=== PATIENT | female | born 1945 | race Asian ===

== ENCOUNTER → 2016-08-31 | Outpatient (CLI) | payer MEDICARE ==
--- NOTE | 2016-08-31 14:02 | REP ---
CT MAXILLOFACIAL WITHOUT CONTRAST: 08/31/2016. Comparison: 07/23/2016. Clinical history: chronic sinusitis. Technique axial noncontrast images with coronal bone window reconstructions provided. The brain lab protocol was also followed for ENT use. The study again shows the patient is status post bilateral uncinectomy and partial ethmoidectomies. Ethmoid sinuses show some minor residual mucosal thickening bilaterally and essentially unchanged from the previous study. The sphenoids, frontal sinuses and mastoids were intact. The bilateral maxillary antra do not show any air fluid level, bony destructive lesion or interval change from last month's exam. Some minor atherosclerotic calcifications in the carotid siphons, orbits and contents symmetric and grossly unremarkable. Zygomatic arches and other structures of the skull base were intact. Impression: 1. Postoperative changes as described and stable with some chronic mucosal thickening ethmoids greater than the sphenoid and maxillary sinuses. Mastoids clear and frontal sinuses unremarkable. Signed by Altaf Garner MD 08/31/2016 02:32 P
== END ==
LOC: M RAD 11:07
PROVIDERS: ATTEND Otolaryngology
DX: J32.4 Chronic pansinusitis (principal)

== ENCOUNTER → 2017-12-13 | Outpatient (CLI) | payer MEDICARE | LOC: M RAD 09:37 | DX: J32.4 Chronic pansinusitis (principal) | CPT/HCPCS: 70486 ==

== ENCOUNTER 2018-09-07 16:51 | Emergency (ER) | payer MEDICARE ==
[~2018-09-07] VITALS: Ht 154.9 cm; Wt 61.8 kg
[2018-09-07] MEDS ORDERED: MOME50SP2 (17:08)
[2018-09-07] MEDS ORDERED: MUCI1TAB18 PO (17:08)
[2018-09-07] MEDS ORDERED: SPIR100T3 (17:08)
[2018-09-07] MEDS ORDERED: ATOR40TA75 (17:08)
[2018-09-07] MEDS ORDERED: DIGECAP6 PO (17:08)
[2018-09-07] MEDS ORDERED: LISI-542 (17:08)
[2018-09-07] MEDS ORDERED: OMEP20CA3 (17:08)
[2018-09-07] MEDS ORDERED: NADO80TA (17:08)
[2018-09-07 17:36] LABS: HEMATOCRIT 36.9 % (36.0-47.0); HEMOGLOBIN 12.8 g/dl (12.0-15.5); MEAN CORPUSCULAR HEMOGLOBIN 34.8 pg (27.0-33.0); MEAN CORPUSCULAR HGB CONC 34.7 g/dl (32.0-36.5); MEAN CORPUSCULAR VOLUME 100.3 fl (80.0-96.0); PLATELET COUNT, AUTOMATED 276 10^3/uL (150-450); RED BLOOD COUNT 3.68 10^6/uL (4.00-5.40); WHITE BLOOD COUNT 6.9 10^3/uL (4.0-10.0)
[2018-09-07 18:04] LABS: ALBUMIN 3.9 GM/DL (3.2-5.2); ALT/SGPT 46 U/L (12-78); BILIRUBIN,TOTAL 0.3 MG/DL (0.2-1.0); BLOOD UREA NITROGEN 19 MG/DL (7-18); CALCIUM LEVEL 9.1 MG/DL (8.8-10.2); CARBON DIOXIDE LEVEL 24 MEQ/L (21-32); CHLORIDE LEVEL 107 MEQ/L (98-107); CREATININE FOR GFR 0.97 MG/DL (0.55-1.30); GLOMERULAR FILTRATION RATE > 60.0 (>39); GLUCOSE, FASTING 158 MG/DL (70-100); SODIUM LEVEL 136 MEQ/L (136-145); TOTAL PROTEIN 7.2 GM/DL (6.4-8.2)
[2018-09-07] MEDS ORDERED: CHLO125TA PO ×2 (18:19→18:20)
[2018-09-07] MEDS ORDERED: AMLO25TA PO (18:20)
[2018-09-07 18:37] VITALS: BP 162/78
--- NOTE | 2018-09-07 21:22 | ECGEPIP ---
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
== END 2018-09-07 19:13 | disposition home or self-care (01) ==
LOC: M ED 16:51
DX: I10 Essential (primary) hypertension (principal); E78.5 Hyperlipidemia, unspecified

== ENCOUNTER 2018-10-20 15:14 | Emergency (ER) | payer MEDICARE ==
[~2018-10-20] VITALS: Ht 154.9 cm; Wt 60.0 kg
[~2018-10-20 15:14] MED LIST: AMLO25TA PO; ATOR40TA75; CHLO125TA PO; DIGECAP6 PO; LISI-542; MOME50SP2; MUCI1TAB18 PO; NADO80TA; OMEP20CA3; SPIR100T3
[2018-10-20] MEDS ORDERED: FLON1SPR NARES (15:44)
[2018-10-20] MEDS ORDERED: VITA500C24 PO (15:44)
[2018-10-20 16:34] LABS: BASO % 0.6 % (0.0-1.0); EOS # 0.1 10^3/uL (0.0-0.50); HEMATOCRIT 32.9 % (36.0-47.0); HEMOGLOBIN 11.5 g/dl (12.0-15.5); LYMPH # 1.3 10^3/uL (1.5-4.5); MEAN CORPUSCULAR HEMOGLOBIN 33.9 pg (27.0-33.0); MEAN CORPUSCULAR VOLUME 97.1 fl (80.0-96.0); MONO # 0.6 10^3/uL (0.0-0.8); MONO % 9.4 % (0.0-5.0); NEUTROPHILS # 4.2 10^3/uL (1.8-7.7); NEUTROPHILS % 67.7 % (36.0-66.0); PLATELET COUNT, AUTOMATED 360 10^3/uL (150-450); RED BLOOD COUNT 3.39 10^6/uL (4.00-5.40); WHITE BLOOD COUNT 6.2 10^3/uL (4.0-10.0)
--- NOTE | 2018-10-20 16:54 | REP ---
Portable chest x-ray: Single view. History: Chest pain. Findings: EKG monitoring electrodes overlie the chest. Lungs are well inflated and clear. Heart size is normal. The aorta is calcific and tortuous. Pleural angles are sharp. Pulmonary vasculature is not increased. No significant bony abnormality is seen. Impression: No active disease. Electronically Signed by Garrick Mary MD 10/20/2018 04:46 P
[2018-10-20 17:09] LABS: BLOOD UREA NITROGEN 17 MG/DL (7-18); CALCIUM LEVEL 8.6 MG/DL (8.8-10.2); CARBON DIOXIDE LEVEL 22 MEQ/L (21-32); CHLORIDE LEVEL 98 MEQ/L (98-107); CPK CREATINE PHOSPHOKINASE 162 U/L (26-192); CREATININE FOR GFR 0.79 MG/DL (0.55-1.30); GLOMERULAR FILTRATION RATE > 60.0 (>39); GLUCOSE, FASTING 107 MG/DL (70-100); MB/CK RELATIVE INDEX 1.11 (< OR =4); POTASSIUM SERUM 5.3 MEQ/L (3.5-5.1); SODIUM LEVEL 128 MEQ/L (136-145); THYROID STIMULATING HORMONE 0.693 uIU/ML (0.358-3.740); TROPONIN I < 0.02 NG/ML (< 0.10)
[2018-10-20] MEDS ORDERED: ISOVUE-370 76% 125ML VIAL (Q9967 PER ML) As Ordered ONE (17:56)
--- NOTE | 2018-10-20 19:49 | REP ---
CT ANGIO CHEST: HISTORY: Dyspnea. CONTRAST: Isovue-370, 75 mL. There are no filling defects in the main, right and left pulmonary arteries or their branches. A 5 mm parenchymal nodule is present in the left upper lobes seen in image #40. The right lung is clear. The heart is normal in size. Atherosclerotic calcification is present in the thoracic aorta. There is no aneurysm. There is no mediastinal mass. Degenerative change is present in the the thoracic spine. Several hypodensities measuring 0.3 to 3.1 cm in width are present in the liver. These most likely represent cysts. Calcification is present in the left kidney consistent with nephrolithiasis. A 2 cm cyst is present in the left kidney. IMPRESSION: 1. There is no pulmonary embolism. 2. 5 mm left upper lobe nodule. A followup CT chest may be helpful for further evaluation. 3. There are several hypodensities in the liver most likely representing cysts. 4. Left nephrolithiasis. 5. 2 cm left renal cyst. Electronically Signed by Caleb Sanford MD 10/20/2018 07:59 P
[2018-10-20 23:30] VITALS: BP 125/60
--- NOTE | 2018-10-21 06:26 | ECGEPIP ---
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
--- NOTE | 2018-10-21 10:28 | ED PDOC ---
Post-Departure Follow-Up certified letter sent to pt re formal read of cta chest. see report. needs to es tablish w pcp. please refer to [facility] and then fax report if she is agreeable. Alysha Green MD Oct 21, 2018 10:28
== END 2018-10-20 23:50 | disposition home or self-care (01) ==
LOC: M ED 15:14
DX: R00.2 Palpitations (principal); R06.02 Shortness of breath; R91.1 Solitary pulmonary nodule; I10 Essential (primary) hypertension; E78.9 Disorder of lipoprotein metabolism, unspecified; Z87.891 Personal history of nicotine dependence; Z79.899 Other long term (current) drug therapy
CPT/HCPCS: 71045; 71275; 80048; 82550; 82553; 84443; 84484; 85025; 93005; 93041; 94760; 99285; Q9967

== ENCOUNTER → 2018-11-09 | Outpatient (CLI) | payer MEDICARE ==
[~2018-11-09] MED LIST changes: +FLON1SPR NARES; +HEPARIN 1,000 UNITS/ML 10ML VIAL (FOR RADIOLOGY& DIALYSIS ONLY) As Ordered ONE; +ISOVUE-300 61% 100ML VIAL (Q9967) As Ordered ONE; +LIDOCAINE 2% MDV 20 ML VIAL As Ordered ONE; +METOPROLOL 5 MG/5 ML VIAL As Ordered ONE; +MIDAZOLAM INJ 2 MG/2 ML VIAL (J2250) As Ordered ONE; +VITA500C24 PO; +fentaNYL 100 MCG/2 ML INJECTION (J3010) As Ordered ONE
[2018-11-09 07:13] LABS: HEMATOCRIT 36.5 % (36.0-47.0); HEMOGLOBIN 12.4 g/dl (12.0-15.5); MEAN CORPUSCULAR HEMOGLOBIN 34.4 pg (27.0-33.0); MEAN CORPUSCULAR VOLUME 101.4 fl (80.0-96.0); PLATELET COUNT, AUTOMATED 374 10^3/uL (150-450); WHITE BLOOD COUNT 5.7 10^3/uL (4.0-10.0)
[2018-11-09 07:35] LABS: BLOOD UREA NITROGEN 16 MG/DL (7-18); CALCIUM LEVEL 8.8 MG/DL (8.8-10.2); CARBON DIOXIDE LEVEL 25 MEQ/L (21-32); CHLORIDE LEVEL 105 MEQ/L (98-107); CREATININE FOR GFR 0.76 MG/DL (0.55-1.30); GLOMERULAR FILTRATION RATE > 60.0 (>39); GLUCOSE, FASTING 111 MG/DL (70-100); SODIUM LEVEL 137 MEQ/L (136-145)
--- NOTE | 2018-11-09 14:40 | ROOPDOC ---
[facility] Report Of Operation Report of Operation DATE OF PROCEDURE: 11/09/18 PREPROCEDURE DIAGNOSES: Hypertension, suspected renal artery stenosis POSTPROCEDURE DIAGNOSES: Hypertension PROCEDURE: 1. Ultrasound-guided access right common femoral artery 2. Renal arteriogram with selection of the right renal artery and left renal artery 3. Mynx closure right common femoral artery SURGEON: Hattie Hurley MD ANESTHESIA: Local anesthesia was 7 mL of lidocaine; moderate. Intravenous conscious sedation was supervised by Dr. Hurley. The patient was independently monitored by a registered nurse assigned to the Department of radiology using automated blood pressure, EKG and pulse oximetry. The detail Yue record is probably stored in the hospital information system. The following is a conscious sedation record including starting and times: Medicatio ns given include 1 mg IV Versed and 25 g IV fentanyl, start time 07:24 and in time 08:04. The patient tolerated sedation and the procedure well and was taken back to recovery monitored for 4 hours postprocedure and discharged in stable condition. INDICATION FOR PROCEDURE: Ms. Rowell is a very pleasant 72-year-old patient with a recent history of palpitations and tachycardia, as well as hypertension. The patient had conflicting reports for evaluation of renal artery stenosis, and today we'll we are going to perform an arteriogram as definitive diagnostic imaging. Her MR study suggested proximal renal artery stenosis, but her ul trasound velocities suggest distal renal artery stenosis, but when I review her MR study. I do not see either proximal or distal stenosis although there is a small amount of motion artifact and it is difficult to be sure. She currently has well-controlled blood pressure on 3 medications, normal kidney size, normal kidney function with normal creatinine and GFR, so unless there is severe stenosis, I have discussed with the patient and her that she will not meet criteria for stenting. They understand this is the case. Risks, benefits and alternatives to an arteriogram with possible intervention were explained to the patient and her and they are agreeable to proceed. Informed consent was obtained. INTERPRETATION: 1. The right renal artery and its branches are widely patent with no significant stenosis proximally or distally. There is some mild plaque noted along the pr oximal third of the artery, but there is less than 20% stenosis along the area and pressure gradients are not significant. 2. The left renal artery and its branches are widely patent with no significant stenosis noted proximally or distally. PROCEDURE: The patient was brought to the angiographic suite in stable condition and placed supine on the fluoroscopic table. Her bilateral groins were prepped and draped in sterile fashion. A timeout was performed. Sedation was administered without complication. Local anesthesia was ministered to the skin and subcutaneous tissue in the right groin and a microneedle was used to access the common femoral artery under ultrasound guidance. A wire was passed through this access and a micro-sheath was placed. Using a Seldinger technique. The wire was exchanged for an O35 Glidewire that was advanced into the aorta under fluoroscopic guidance. A short 6 [place] sheath was placed and flushed with saline. And injection catheter was advanced into the suprarenal aorta and a quick arteriogram was performed to identify the origin of the renal arteries. We then advanced R Glidewire removed the catheter. R sheath was exchanged for a long angled 6 [place] sheath and this was flushed with saline. We then replaced her catheter for the wire and accessed first the right renal artery. Care was taken to advance the wire carefully so as not to injury the renal vessels. The catheter was advanced into the origin, and the sheath was advanced over the catheter. The catheter was removed. A right renal arteriogram was performed and no significant renal stenosis was noted. We then carefully backed the catheter out to make sure there was no stenosis at the origin of the artery, and did not see any. Although we noted mild plaque for several centimeters along the proximal third of the artery, we did not note any significant stenosis from this, nor any pressure gradients. We flushed through the sheath with heparinized saline. We then performed the same access on the left renal artery. Once the artery was selected, we advanced the catheter and the sheath into the origin. Renal arteriogram was performed and no significant stenosis was noted throughout the left renal artery or its branches. We flushed through the sheath with heparinized saline. Exchanged her sheath over the wire for a short 6 [place] sheath, flushed sheath with saline, and a minx closure device was deployed at the right common femoral artery access site under fluoroscopic guidance with good hemostasis. Pressure was held for 5 minutes and sterile dressings were applied. The patient was taken back to recovery in stable condition and monitored for hours postprocedure to make sure she did not have any bleeding from her access site and then was discharged in stable condition. She tolerated the procedure well. We will plan to see her back in clinic tomorrow to check her access site. ESTIMATED BLOOD LOSS: Approximately 5 mL. COMPLICATIONS: None. HATTIE HURLEY MD Nov 09, 2018 14:40
== END | disposition home or self-care (01) ==
LOC: M IRPRO 06:26
PROVIDERS: ATTEND Surgery Vascular Surgery
DX: I70.1 Atherosclerosis of renal artery (principal); I10 Essential (primary) hypertension
CPT/HCPCS: 36252; 80048; 85027; 99152; 99153; C1769; C1887; C1894; J2250; J3010; Q9967

== ENCOUNTER 2019-04-15 11:59 | Emergency (ER) | payer MEDICARE ==
[~2019-04-15] VITALS: Ht 154.9 cm; Wt 61.4 kg
[~2019-04-15 11:59] MED LIST changes: -HEPARIN 1,000 UNITS/ML 10ML VIAL (FOR RADIOLOGY& DIALYSIS ONLY) As Ordered ONE; -ISOVUE-300 61% 100ML VIAL (Q9967) As Ordered ONE; -LIDOCAINE 2% MDV 20 ML VIAL As Ordered ONE; -METOPROLOL 5 MG/5 ML VIAL As Ordered ONE; -MIDAZOLAM INJ 2 MG/2 ML VIAL (J2250) As Ordered ONE; -OMEP20CA3; +OMEP20CA4; -fentaNYL 100 MCG/2 ML INJECTION (J3010) As Ordered ONE
[2019-04-15] MEDS ORDERED: LISI-542 PO (12:23)
[2019-04-15] MEDS ORDERED: ISOS1TAB12 PO (12:23)
[2019-04-15] MEDS ORDERED: MOBI4TAB PO (12:23)
[2019-04-15] MEDS ORDERED: ATEN25TA PO (12:23)
[2019-04-15] MEDS ORDERED: OMEP10CASR PO (12:23)
[2019-04-15] MEDS ORDERED: AMLO25TA PO (12:23)
--- NOTE | 2019-04-15 12:59 | REP ---
REASON: Stroke-like symptoms. COMPARISON: None. The ventricles and sulci are within normal limits for the patient's age. There is no shift of the midline structures. There are no extra-axial fluid collections. There is no evidence of an acute intracranial hemorrhagic or nonhemorrhagic event. Paranasal sinuses and mastoid air cells are clear. The posterior fossa is unremarkable. IMPRESSION: Within normal limits for the patient's age. Electronically Signed by Jorge A Buchanan DO 04/15/2019 03:17 P
[2019-04-15 13:09] LABS: BASO # 0.1 10^3/uL (0.0-0.2); BASO % 0.7 % (0.0-1.0); EOS # 0.1 10^3/uL (0.0-0.5); EOS % 0.8 % (0.0-3.0); HEMATOCRIT 38.6 % (36.0-47.0); HEMOGLOBIN 13.1 g/dl (12.0-15.5); LYMPH # 1.2 10^3/uL (1.5-5.0); LYMPH % 16.2 % (24.0-44.0); MEAN CORPUSCULAR HEMOGLOBIN 34.3 pg (27.0-33.0); MEAN CORPUSCULAR HGB CONC 33.9 g/dl (32.0-36.5); MONO # 0.5 10^3/uL (0.0-0.8); NEUTROPHILS # 5.3 10^3/uL (1.5-8.5); NEUTROPHILS % 74.9 % (36.0-66.0); PLATELET COUNT, AUTOMATED 304 10^3/uL (150-450); RED BLOOD COUNT 3.82 10^6/uL (4.00-5.40); WHITE BLOOD COUNT 7.1 10^3/uL (4.0-10.0)
[2019-04-15] MEDS ORDERED: FUROSEMIDE 40 MG/4 ML VIAL (J1940) IV ONE (13:30)
[2019-04-15 13:33] LABS: ALBUMIN 4.1 GM/DL (3.2-5.2); ALT/SGPT 58 U/L (12-78); BILIRUBIN,DIRECT 0.2 MG/DL (0.0-0.2); BILIRUBIN,TOTAL 0.7 MG/DL (0.2-1.0); BLOOD UREA NITROGEN 14 MG/DL (7-18); CALCIUM LEVEL 9.2 MG/DL (8.8-10.2); CARBON DIOXIDE LEVEL 25 MEQ/L (21-32); CHLORIDE LEVEL 105 MEQ/L (98-107); CK-MB VALUE MASS 1.5 NG/ML (<3.6); CPK CREATINE PHOSPHOKINASE 145 U/L (26-192); CREATININE FOR GFR 1.05 MG/DL (0.55-1.30); GLUCOSE, FASTING 102 MG/DL (70-100); MB/CK RELATIVE INDEX 1.03 (< OR =4); POTASSIUM SERUM 4.6 MEQ/L (3.5-5.1); SODIUM LEVEL 138 MEQ/L (136-145); TOTAL PROTEIN 7.6 GM/DL (6.4-8.2); TROPONIN I < 0.02 NG/ML (< 0.10)
[2019-04-15] MEDS ORDERED: HOLTER MONITOR XX (14:37)
[2019-04-15 14:49] VITALS: BP 151/66
--- NOTE | 2019-04-16 05:50 | ECGEPIP ---
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
== END 2019-04-15 15:05 | disposition home or self-care (01) ==
LOC: M ED 11:59
DX: R55 Syncope and collapse (principal); R00.1 Bradycardia, unspecified; I10 Essential (primary) hypertension; E78.00 Pure hypercholesterolemia, unspecified; K21.9 Gastro-esophageal reflux disease without esophagitis; Z79.899 Other long term (current) drug therapy

== ENCOUNTER → 2019-04-17 | Outpatient (CLI) | payer MEDICARE ==
[~2019-04-17] MED LIST changes: +ATEN25TA PO; +HOLTER MONITOR XX; +ISOS1TAB12 PO; +LISI-542 PO; +MOBI4TAB PO; +OMEP10CASR PO; +OMEP1CAP73; -OMEP20CA4
--- NOTE | 2019-04-22 17:11 | HOLTMON ---
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 Heart rate varied from 49-116 beats per minute, with an average rate of 66 beats per minute. Underlying rhtyhm was sinus. There was no significant pause. There was no ventricular ectopy. Patient had 8 singlet supra ventricular beats, with one run of three beats at a rate of 116 beats per minute. There were no diary evetns recorded. The lowest rate was at 11:06 am when the patient was presumably awake, but did not record symptoms. This would appear to be a normal Holter study- if further concern for arrythmia is clinically considered then the patient may be appropriate for an event or loop recorder. Electronically Signed on 04-22-2019 17:11:14 EDT by Abel Rico
== END ==
LOC: M EKG 10:09
PROVIDERS: ATTEND Emergency Medicine
DX: R55 Syncope and collapse (principal)

== ENCOUNTER → 2019-04-19 | Outpatient (CLI) | payer MEDICARE ==
[~2019-04-19] MED LIST changes: -OMEP1CAP73; +OMEP20CA4
--- NOTE | 2019-04-19 16:17 | REP ---
CT of the chest without IV contrast: Comparison is 10/20/2018 with IV contrast. The studies of 6-month follow-up chest CT for a left upper lobe 5 mm lung nodule. The 5 mm lung nodule is again identified in the left upper lobe on image 50 and is unchanged in size. There are no other lung nodules or masses. There are no infiltrates or pleural effusions. There is no mediastinal or axillary lymph node enlargement. The study is insensitive for hilar lymph node enlargement in the absence of IV contrast. Thoracic aorta is unremarkable except for calcified atheroma. Cardiac size is normal and unchanged. Upper abdomen: There are multiple hepatic cysts, unchanged. The visualized areas of the gallbladder, pancreas and spleen are unremarkable. There is a 2.0 cm right adrenal hypodense nodule with CT density of -8.45 HU. This is consistent with a benign adrenal adenoma. The left renal calculus and left renal upper pole cyst identified previously are not included on the current scan volume. Impression: The a 5 mm left upper lobe lung nodule is stable and unchanged. Follow-up chest CT and 1 year is recommended for further evaluation. There are hepatic cysts, unchanged. There is a hypodense right adrenal 2 cm nodule compatible with benign adenoma. Electronically Signed by Jamie Calabrese MD 04/19/2019 04:08 P
== END ==
LOC: M RAD 10:31
PROVIDERS: ATTEND Internal Medicine Pulmonary Disease
DX: R91.1 Solitary pulmonary nodule (principal); K76.89 Other specified diseases of liver; N20.0 Calculus of kidney; N28.1 Cyst of kidney, acquired; D35.01 Benign neoplasm of right adrenal gland

== ENCOUNTER → 2020-02-16 | Outpatient (CLI) | payer MEDICARE ==
[~2020-02-16] MED LIST changes: +CARV3.12 PO; +ESOM1CAP5 PO; +MULTCAP PO; -NADO80TA; +NADO80TA5; +OMEP1CAP73; -OMEP20CA4
== END ==
LOC: M LABSMTC 12:07
PROVIDERS: ATTEND Anesthesiology
DX: Z01.818 Encounter for other preprocedural examination (principal); Z11.59 Encounter for screening for other viral diseases
CPT/HCPCS: C9803; U0003

== ENCOUNTER 2020-02-21 06:59 | Day surgery (SDC) | payer MEDICARE ==
[~2020-02-21] VITALS: Ht 154.9 cm; Wt 57.6 kg
[~2020-02-21 06:59] MED LIST changes: +NADO80TA; -NADO80TA5
[2020-02-21] MEDS ORDERED: NS 1,000 ML IV ONE (07:00)
[2020-02-21] MEDS ORDERED: LIDOCAINE 2% 100MG/5ML SDV (FOR ANES.) As Ordered ONE (08:08)
[2020-02-21] MEDS ORDERED: propofoL 200 MG/20 ML VIAL As Ordered ONE (08:08)
--- NOTE | 2020-02-21 08:23 | ROOR ---
Patient Name: Shoshana Rowell Procedure Date: 02/21/2020 8:07 AM Date of : 1945 Age: 74 Room: [facility] Gender: Female Note Status: Finalized Procedure: Upper GI endoscopy Indications: Heartburn, Suspected esophageal reflux Providers: DO Dre Jack MD: Mckenna Greene NP Requesting Provider: Medicines: Propofol per Anesthesia Complications: No immediate complications. Procedure: Pre-Anesthesia Assessment: - Prior to the procedure, a History and Physical was performed, and patient medications and allergies were reviewed. The patient is competent. The risks and benefits of the procedure and the sedation options and risks were discussed with the patient. All questions were answered and informed consent was obtained. Patient identification and proposed procedure were verified by the physician, the nurse, the anesthesiologist and the energy technician in the endoscopy suite. Mental Status Examination: alert and oriented. Airway Examination: normal oropharyngeal airway and neck mobility. Respiratory Examination: clear to auscultation. CV Examination: normal. Prophylactic Antibiotics: The patient does not require prophylactic antibiotics. Prior Anticoagulants: The patient has taken no previous anticoagulant or antiplatelet agents. ASA Grade Assessment: II - A patient with mild systemic disease. After reviewing the risks and benefits, the patient was deemed in satisfactory condition to undergo the procedure. The anesthesia plan was to use monitored anesthesia care (MAC). Immediately prior to administration of medications, the patient was re-assessed for adequacy to receive sedatives. The heart rate, respiratory rate, oxygen saturations, blood pressure, adequacy of pulmonary ventilation, and response to care were monitored throughout the procedure. The physical status of the patient was re-assessed after the procedure. The Endoscope was introduced through the mouth, and advanced to the second part of duodenum. The upper GI endoscopy was accomplished without difficulty. The patient tolerated the procedure well. Findings: Patchy moderate inflammation characterized by erythema, friability and aphthous ulcerations was found in the prepyloric region of the stomach. Biopsies were taken with a cold forceps for Helicobacter pylori testing. Estimated blood loss was minimal. Impression: - Gastritis. Biopsied. Recommendation: - Patient has a contact number available for emergencies. The signs and symptoms of potential delayed complications were discussed with the patient. Return to normal activities tomorrow. Written discharge instructions were provided to the patient. - Await pathology results. - Return to my office at appointment to be scheduled. Jamie Hilotn DO 02/21/2020 8:22:48 AM Electronically signed by Jamie Hilton DO Number of Addenda: 0 Note Initiated On: 02/21/2020 8:07 AM Estimated Blood Loss: Estimated blood loss was minimal.
[2020-02-21 08:45] VITALS: BP 133/60
== END 2020-02-21 08:54 | disposition home or self-care (01) ==
LOC: M OPP 06:59
PROVIDERS: ATTEND Surgery
DX: K21.9 Gastro-esophageal reflux disease without esophagitis (principal); E78.5 Hyperlipidemia, unspecified; I10 Essential (primary) hypertension; Z88.8 Allergy status to other drugs, medicaments and biological substances; Z79.899 Other long term (current) drug therapy; Z87.891 Personal history of nicotine dependence; Z91.010 Allergy to peanuts

== ENCOUNTER → 2020-04-17 | Outpatient (CLI) | payer MEDICARE ==
[~2020-04-17] MED LIST changes: -NADO80TA; +NADO80TA5
--- NOTE | 2020-05-02 13:10 | REP ---
CT CHEST WITHOUT CONTRAST HISTORY: Other nonspecific abnormal finding of the lung field. COMPARISON: Chest CT studies from 04/19/2019 and 10/20/2018. CT FINDINGS: Digital preliminary customer success advocate radiographs are unremarkable. There is no evidence of pleural or pericardial effusion. Extensive vascular calcification is noted. There is a stable benign adrenal adenoma on the right measuring 2.3 cm in greatest diameter. There are scattered hepatic cysts again noted. These findings are unchanged. The previously noted 5-mm nonsolid pulmonary nodule is seen again unchanged in the left upper lobe in the interval since the 10/20/2018 prior study. This is displayed on Image #52 of 105 in Series 201 of todays study. There are multiple small peribronchovascular ground-glass opacities in the upper lobes bilaterally and grouped in the right upper lobe. These are unchanged from comparison studies as well and are quite subtle. No new pulmonary nodule or density is appreciated. There are granulomatous lymph node calcifications visible in the right hilus. There is mild linear fibrosis in both lung bases. IMPRESSION: Stable chest CT findings. MTDD
== END ==
LOC: M RAD 14:50
PROVIDERS: ATTEND Internal Medicine Pulmonary Disease
DX: R91.8 Other nonspecific abnormal finding of lung field (principal); D35.01 Benign neoplasm of right adrenal gland; J84.10 Pulmonary fibrosis, unspecified

== ENCOUNTER 2020-08-14 20:34 | Emergency (ER) | payer MEDICARE ==
[~2020-08-14] VITALS: Ht 154.9 cm; Wt 61.4 kg
--- OUTSIDE RECORDS SUMMARY | 2020-08-14 20:48 | CCD ---
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 Name Role Phone Kendrick, Elvia Amaro MD Unavailable Unavailable Kendrick, Elvia Amaro MD Unavailable Unavailable Kendrick, Elvia Amaro MD Unavailable Unavailable Kendrick, Elvia Amaro MD Unavailable Unavailable Kendrick, Elvia Amaro MD Unavailable Unavailable Kendrick, Elvia Amaro MD Unavailable Unavailable Kendrick, Elvia Amaro MD Unavailable Unavailable Kendrick, Elvia Amaro MD Unavailable Unavailable Kendrick, Elvia Amaro MD Unavailable Unavailable Kendrick, Elvia Amaro MD Unavailable Unavailable Kendrick, Elvia Amaro MD Unavailable Unavailable Kendrick, Elvia Amaro MD Unavailable Unavailable Kendrick, Elvia Amaro MD Unavailable Unavailable Kendrick, Elvia Amaro MD Unavailable Unavailable Kendrick, Elvia Amaro MD Unavailable Unavailable Kendrick, Elvia Amaro MD Unavailable Unavailable Kendrick, Elvia Amaro MD Unavailable Unavailable Kendrick, Elvia Amaro MD Unavailable Unavailable Kendrick, Elvia Amaro MD Unavailable Unavailable Kendrick, Elvia Amaro MD Unavailable Unavailable Kendirck, Elvia Amaro MD Unavailable Unavailable Kendrick, Elvia Amaro MD Unavailable Unavailable Kendrick, Elvia Amaro MD Unavailable Unavailable Kendrick, Elvia Amaro MD Unavailable Unavailable Kendrick, Elvia Amaro MD Unavailable Unavailable Kendrick, Elvia Amaro MD Unavailable Unavailable Kendrick, Elvia Amaro MD Unavailable Unavailable Kendrick, Elvia Amaro MD Unavailable Unavailable Kendrick, Elvia Amaro MD Unavailable Unavailable Kendrick, Elvia Amaro MD Unavailable Unavailable Kendrick, Elvia Amaro MD Unavailable Unavailable Kendrick, Elvia Amaro MD Unavailable Unavailable Kendrick, Elvia Amaro MD Unavailable Unavailable Kendrick, Elvia Amaro MD Unavailable Unavailable Kendrick, Elvia Amaro MD Unavailable Unavailable Kendrick, Elvia Amaro MD Unavailable Unavailable Kendrick, Elvia Amaro MD Unavailable Unavailable Kendrick, Elvia Amaro MD Unavailable Unavailable Kendrick, Elvia Amaro MD Unavailable Unavailable Kendrick, Elvia Amaro MD Unavailable Unavailable Kendrick, Elvia Amaro MD Unavailable Unavailable Kendrick, Elvia Amaro MD Unavailable Unavailable Kendrick, Elvia Amaro MD Unavailable Unavailable Kendrick, Elvia Amaro MD Unavailable Unavailable Kendrick, Elvia Amaro MD Unavailable Unavailable Kendrick, Elvia Amaro MD Unavailable Unavailable Kendrick, Elvia Amaro MD Unavailable Unavailable Kendrick, Elvia Amaro MD Unavailable Unavailable Kendrick, Elvia Amaro MD Unavailable Unavailable Kendrick, Elvia Amaro MD Unavailable Unavailable Kendrick, Elvia Amaro MD Unavailable Unavailable Kendrick, Elvia Amaro MD Unavailable Unavailable Kendrick, Elvia Amaro MD Unavailable Unavailable Kendrick, Elvia Amaro MD Unavailable Unavailable Kendrick, Elvia Amaro MD Unavailable Unavailable Kendrick, Elvia Amaro MD Unavailable Unavailable Kendrick, Elvia Amaro MD Unavailable Unavailable Kendrick, Elvia Amaro MD Unavailable Unavailable Kendrick, Elvia Amaro MD Unavailable Unavailable Kendrick, Elvia Amaro MD Unavailable Unavailable Kendrick, Elvia Amaro MD Unavailable Unavailable Kendrick, Elvia Amaro MD Unavailable Unavailable Kendrick, Elvia Amaro MD Unavailable Unavailable Kendrick, Elvia Amaro MD Unavailable Unavailable Kendrick, Elvia Amaro MD Unavailable Unavailable Kendrick, Elvia Amaro MD Unavailable Unavailable Kendrick, Elvia Amaro MD Unavailable Unavailable Kendrick, Elvia Amaro MD Unavailable Unavailable Kendrick, Elvia Amaro MD Unavailable Unavailable Kendrick, Elvia Amaro MD Unavailable Unavailable Kendrick, Elvia Amaro MD Unavailable Unavailable Kendrick, Elvia Amaro MD Unavailable Unavailable Kendrick, Elvia Amaro MD Unavailable Unavailable Kendrick, Elvia Amaro MD Unavailable Unavailable Kendrick, Elvia Amaro MD Unavailable Unavailable Kendrick, Elvia Amaro MD Unavailable Unavailable ANTECOL, Maco ADAME MD Unavailable Unavailable ANTECOL, Maco ADAME MD Unavailable Unavailable ANTECOL, Maco ADAME MD Unavailable Unavailable ANTECOL, Maco ADAME MD Unavailable Unavailable ANTECOL, Maco ADAME MD Unavailable Unavailable ANTECOL, Maco ADAME MD Unavailable Unavailable ANTECOL, Maco ADAME MD Unavailable Unavailable ANTECOL, Maco ADAME MD Unavailable Unavailable ANTECOL, Maco ADAME MD Unavailable Unavailable ANTECOL, Maco ADAME MD Unavailable Unavailable ANTECOL, Maco ADAME MD Unavailable Unavailable ANTECOL, Maco ADAME MD Unavailable Unavailable ANTECOL, Maco ADAME MD Unavailable Unavailable ANTECOL, Maco ADAME MD Unavailable Unavailable ANTECOL, Maco ADAME MD Unavailable Unavailable ANTECOL, Maco ADAME MD Unavailable Unavailable ANTECOL, Maco ADAME MD Unavailable Unavailable ANTECOL, Maco ADAME MD Unavailable Unavailable ANTECOL, Maco ADAME MD Unavailable Unavailable ANTECOL, Maco ADAME MD Unavailable Unavailable ANTECOL, Maco ADAME MD Unavailable Unavailable ANTECOL, Maco ADAME MD Unavailable Unavailable ANTECOL, Maco ADAME MD Unavailable Unavailable ANTECOL, Maco ADAME MD Unavailable Unavailable ANTECOL, Maco ADAME MD Unavailable Unavailable ANTECOL, Maco ADAME MD Unavailable Unavailable ANTECOL, Maco ADAME MD Unavailable Unavailable ANTECOL, Maco ADAME MD Unavailable Unavailable ANTECOL, Maco ADAME MD Unavailable Unavailable ANTECOL, Maco ADAME MD Unavailable Unavailable ANTECOL, Maco ADAME MD Unavailable Unavailable ANTECOL, Maco ADAME MD Unavailable Unavailable ANTECOL, Maco ADAME MD Unavailable Unavailable ANTECOL, Maco ADAME MD Unavailable Unavailable ANTECOL, Maco ADAME MD Unavailable Unavailable ANTECOL, Maco ADAME MD Unavailable Unavailable ANTECOL, Maco ADAME MD Unavailable Unavailable ANTECOL, Maco ADAME MD Unavailable Unavailable ANTECOL, Maco ADAME MD Unavailable Unavailable ANTECOL, Maco ADAME MD Unavailable Unavailable ANTECOL, Maco ADAME MD Unavailable Unavailable ANTECOL, Maco ADAME MD Unavailable Unavailable ANTECOL, Maco ADAME MD Unavailable Unavailable ANTECOL, Maco ADAME MD Unavailable Unavailable ANTECOL, Maco ADAME MD Unavailable Unavailable ANTECOL, Maco ADAME MD Unavailable Unavailable ANTECOL, Maco ADAME MD Unavailable Unavailable ANTECOL, Maco ADAME MD Unavailable Unavailable ANTECOL, Maco ADAME MD Unavailable Unavailable ANTECOL, Maco ADAME MD Unavailable Unavailable ANTECOL, Maco ADAME MD Unavailable Unavailable ANTECOL, Maco ADAME MD Unavailable Unavailable ANTECOL, Maco ADAME MD Unavailable Unavailable ANTECOL, Maco ADAME MD Unavailable Unavailable ANTECOL, Maco ADAME MD Unavailable Unavailable MagnoliaIza Mohinder Unavailable Unavailable AltonIza Unavailable Unavailable Magnolia, Iza Vines Unavailable Unavailable Alton, Iza Mohinder Unavailable Unavailable Alton, Iza Mohinder Unavailable Unavailable Magnolia, Iza Mohinder Unavailable Unavailable Magnolia, Iza Mohinder Unavailable Unavailable Magnolia, Iza Mohinder Unavailable Unavailable Jc, H Mckenna PAMPHLET DISTRIBUTOR Unavailable Unavailable Jc, H Mckenna PAMPHLET DISTRIBUTOR Unavailable Unavailable Jc, H Mckenna PAMPHLET DISTRIBUTOR Unavailable Unavailable Jc, H Mckenna PAMPHLET DISTRIBUTOR Unavailable Unavailable Jc, H Mckenna PAMPHLET DISTRIBUTOR Unavailable Unavailable Jc, H Mckenna PAMPHLET DISTRIBUTOR Unavailable Unavailable Jc, H Mckenna PAMPHLET DISTRIBUTOR Unavailable Unavailable Jc, H Mckenna PAMPHLET DISTRIBUTOR Unavailable Unavailable Jc, H Mckenna PAMPHLET DISTRIBUTOR Unavailable Unavailable Jc, H Mckenna PAMPHLET DISTRIBUTOR Unavailable Unavailable Jc, H Mckenna PAMPHLET DISTRIBUTOR Unavailable Unavailable Jc, H Mckenna PAMPHLET DISTRIBUTOR Unavailable Unavailable Jc, H Mckenna PAMPHLET DISTRIBUTOR Unavailable Unavailable Jc, H Mckenna PAMPHLET DISTRIBUTOR Unavailable Unavailable Jc, H Mckenna PAMPHLET DISTRIBUTOR Unavailable Unavailable Jc, H Mckenna PAMPHLET DISTRIBUTOR Unavailable Unavailable Jc, H Mckenna PAMPHLET DISTRIBUTOR Unavailable Unavailable Jc, H Mckenna PAMPHLET DISTRIBUTOR Unavailable Unavailable Jc, H Mckenna PAMPHLET DISTRIBUTOR Unavailable Unavailable Jc, H Mckenna PAMPHLET DISTRIBUTOR Unavailable Unavailable Jc, H Mckenna PAMPHLET DISTRIBUTOR Unavailable Unavailable Jc, H Mckenna PAMPHLET DISTRIBUTOR Unavailable Unavailable Jc, H Mckenna PAMPHLET DISTRIBUTOR Unavailable Unavailable Jc, H Mckenna PAMPHLET DISTRIBUTOR Unavailable Unavailable Jc, H Mckenna PAMPHLET DISTRIBUTOR Unavailable Unavailable Jc, H Mckenna PAMPHLET DISTRIBUTOR Unavailable Unavailable Jc, H Mckenna PAMPHLET DISTRIBUTOR Unavailable Unavailable Jc, H Mckenna PAMPHLET DISTRIBUTOR Unavailable Unavailable Jc, H Mckenna PAMPHLET DISTRIBUTOR Unavailable Unavailable Jc, H Mckenna PAMPHLET DISTRIBUTOR Unavailable Unavailable Jc, H Mckenna PAMPHLET DISTRIBUTOR Unavailable Unavailable Jc, H Mckenna PAMPHLET DISTRIBUTOR Unavailable Unavailable Jc, H Mckenna PAMPHLET DISTRIBUTOR Unavailable Unavailable Jc, H Mckenna PAMPHLET DISTRIBUTOR Unavailable Unavailable Jc, H Mckenna PAMPHLET DISTRIBUTOR Unavailable Unavailable Jc, H Mckenna PAMPHLET DISTRIBUTOR Unavailable Unavailable Jc, H Mckenna PAMPHLET DISTRIBUTOR Unavailable Unavailable Jc, H Mckenna PAMPHLET DISTRIBUTOR Unavailable Unavailable Jc, H Mckenna PAMPHLET DISTRIBUTOR Unavailable Unavailable Jc, H Mckenna PAMPHLET DISTRIBUTOR Unavailable Unavailable Jc, H Mckenna PAMPHLET DISTRIBUTOR Unavailable Unavailable Jc, H Mckenna PAMPHLET DISTRIBUTOR Unavailable Unavailable Jc, H Mckenna PAMPHLET DISTRIBUTOR Unavailable Unavailable Jc, H Mckenna PAMPHLET DISTRIBUTOR Unavailable Unavailable Jc, H Mckenna PAMPHLET DISTRIBUTOR Unavailable Unavailable Jc, H Mckenna PAMPHLET DISTRIBUTOR Unavailable Unavailable Jc, H Mckenna PAMPHLET DISTRIBUTOR Unavailable Unavailable Jc, H Mckenna PAMPHLET DISTRIBUTOR Unavailable Unavailable Jc, H Mckenna PAMPHLET DISTRIBUTOR Unavailable Unavailable Jc, H Mckenna PAMPHLET DISTRIBUTOR Unavailable Unavailable Jc, H Mckenna PAMPHLET DISTRIBUTOR Unavailable Unavailable Jc, H Mckenna PAMPHLET DISTRIBUTOR Unavailable Unavailable Jc, H Mckenna PAMPHLET DISTRIBUTOR Unavailable Unavailable Jc, H Mckenna PAMPHLET DISTRIBUTOR Unavailable Unavailable Jc, H Mckenna PAMPHLET DISTRIBUTOR Unavailable Unavailable Jc, H Mckenna PAMPHLET DISTRIBUTOR Unavailable Unavailable Jc, H Mckenna PAMPHLET DISTRIBUTOR Unavailable Unavailable Jc, H Mckenna PAMPHLET DISTRIBUTOR Unavailable Unavailable Jc, H Mckenna PAMPHLET DISTRIBUTOR Unavailable Unavailable Jc, H Mckenna PAMPHLET DISTRIBUTOR Unavailable Unavailable Jc, H Mckenna PAMPHLET DISTRIBUTOR Unavailable Unavailable Jc, H Mckenna PAMPHLET DISTRIBUTOR Unavailable Unavailable Jc, H Mckenna PAMPHLET DISTRIBUTOR Unavailable Unavailable Jc, H Mckenna PAMPHLET DISTRIBUTOR Unavailable Unavailable Jc, H Mckenna PAMPHLET DISTRIBUTOR Unavailable Unavailable Jc, H Mckenna PAMPHLET DISTRIBUTOR Unavailable Unavailable Jc, H Mckenna PAMPHLET DISTRIBUTOR Unavailable Unavailable Jc, H Mckenna PAMPHLET DISTRIBUTOR Unavailable Unavailable Jc, H Mckenna PAMPHLET DISTRIBUTOR Unavailable Unavailable Jc, H Mckenna PAMPHLET DISTRIBUTOR Unavailable Unavailable Jc, H Mckenna PAMPHLET DISTRIBUTOR Unavailable Unavailable Jc, H Mckenna PAMPHLET DISTRIBUTOR Unavailable Unavailable Jc, H Mckenna PAMPHLET DISTRIBUTOR Unavailable Unavailable Jc, H Mckenna PAMPHLET DISTRIBUTOR Unavailable Unavailable Jc, H Mckenna PAMPHLET DISTRIBUTOR Unavailable Unavailable Jc, H Mckenna PAMPHLET DISTRIBUTOR Unavailable Unavailable Jc, H Mckenna PAMPHLET DISTRIBUTOR Unavailable Unavailable Jc, H Mckenna PAMPHLET DISTRIBUTOR Unavailable Unavailable Jc, H Mckenna PAMPHLET DISTRIBUTOR Unavailable Unavailable Jc, H Mckenna PAMPHLET DISTRIBUTOR Unavailable Unavailable Jc, H Mckenna PAMPHLET DISTRIBUTOR Unavailable Unavailable Jc, H Mckenna PAMPHLET DISTRIBUTOR Unavailable Unavailable Jc, H Mckenna PAMPHLET DISTRIBUTOR Unavailable Unavailable Jc, H Mckenna PAMPHLET DISTRIBUTOR Unavailable Unavailable Jc, H Mckenna PAMPHLET DISTRIBUTOR Unavailable Unavailable Jc, H Mckenna PAMPHLET DISTRIBUTOR Unavailable Unavailable Jc, H Mckenna PAMPHLET DISTRIBUTOR Unavailable Unavailable Jc, H Mckenna PAMPHLET DISTRIBUTOR Unavailable Unavailable Jc, H Mckenna PAMPHLET DISTRIBUTOR Unavailable Unavailable Jc, H Mckenna PAMPHLET DISTRIBUTOR Unavailable Unavailable Jc, H Mckenna PAMPHLET DISTRIBUTOR Unavailable Unavailable Jc, H Mckenna PAMPHLET DISTRIBUTOR Unavailable Unavailable Jc, H Mckenna PAMPHLET DISTRIBUTOR Unavailable Unavailable Jc, H Mckenna PAMPHLET DISTRIBUTOR Unavailable Unavailable Jc, H Mckenna PAMPHLET DISTRIBUTOR Unavailable Unavailable Jc, H Mckenna PAMPHLET DISTRIBUTOR Unavailable Unavailable Jc, H Mckenna PAMPHLET DISTRIBUTOR Unavailable Unavailable Jc, H Mckenna PAMPHLET DISTRIBUTOR Unavailable Unavailable Jc, H Mckenna PAMPHLET DISTRIBUTOR Unavailable Unavailable Jc, H Mckenna PAMPHLET DISTRIBUTOR Unavailable Unavailable Jc, H Mckenna PAMPHLET DISTRIBUTOR Unavailable Unavailable Jc, H Mckenna PAMPHLET DISTRIBUTOR Unavailable Unavailable Jc, H Mckenna PAMPHLET DISTRIBUTOR Unavailable Unavailable Jc, H Mckenna PAMPHLET DISTRIBUTOR Unavailable Unavailable Jc, H Mckenna PAMPHLET DISTRIBUTOR Unavailable Unavailable Jc, H Mckenna PAMPHLET DISTRIBUTOR Unavailable Unavailable Jc, H Mckenna PAMPHLET DISTRIBUTOR Unavailable Unavailable Jc, H Mckenna PAMPHLET DISTRIBUTOR Unavailable Unavailable Jc, H Mckenna PAMPHLET DISTRIBUTOR Unavailable Unavailable Jc, H Mckenna PAMPHLET DISTRIBUTOR Unavailable Unavailable Jc, H Mckenna PAMPHLET DISTRIBUTOR Unavailable Unavailable Jc, H Mckenna PAMPHLET DISTRIBUTOR Unavailable Unavailable Jc, H Mckenna PAMPHLET DISTRIBUTOR Unavailable Unavailable Jc, H Mckenna PAMPHLET DISTRIBUTOR Unavailable Unavailable Re-disclosure Warning The records that you are about to access may contain information from federally-assisted alcohol or drug abuse programs. If such information is present, then the following federally mandated warning applies: This information has been disclosed to you from records protected by federal confidentiality rules (42 CFR part 2). The federal rules prohibit you from making any further disclosure of this information unless further disclosure is expressly permitted by the written consent of the person to whom it pertains or as otherwise permitted by 42 CFR part 2. A general authorization for the release of medical or other information is NOT sufficient for this purpose. The Federal rules restrict any use of the information to criminally investigate or prosecute any alcohol or drug abuse patient.The records that you are about to access may contain highly sensitive health information, the redisclosure of which is protected by Article 27-F of the [place] Public Health law. If you continue you may have access to information: Regarding HIV / AIDS; Provided by facilities licensed or operated by the [place] Office of Mental Health; or Provided by the [place] Office for People With Developmental Disabilities. If such information is present, then the following [place] mandated warning applies: This information has been disclosed to you from confidential records which are protected by state law. State law prohibits you from making any further disclosure of this information without the specific written consent of the person to whom it pertains, or as otherwise permitted by law. Any unauthorized further disclosure in violation of state law may result in a fine or longterm sentence or both. A general authorization for the release of medical or other information is NOT sufficient authorization for further disc losure. Allergies and Adverse Reactions Type Description Substance Reaction Status Data Source(s ) Drug allergy No Known Drug Allergies No Known Drug Allergies [facility] Drug Allergy NKDA NKDA [facility] ([facility]unj head[facility], ) Family History Family Member Name Family Member Gender Family Member Status Date o f Status Description Data Source(s) Unknown Unknown Problem [facility] ([facility], ) Unknown Male Problem [facility] ([facility]) Unknown Unknown Problem [facility] ([facility] Encounters Encounter Providers Location Date Indications Data Source(s ) Outpatient Attender: Mckenna Ochoaerrer: Mckenna Miles NP 05/06/2020 09:19:00 AM EDT [facility] Out[facility] Attender: Mckenna Miles NP 04/04/2020 12:53:00 [address] [facility] SCREEN Outpatient Attender: Mckenna Ochoaerrer: Mckenna Miles NP 03/06/2020 02:32:00 PM EDT [facility] Outpatient Attender: Mckenna Littleeferrer: Mckenna Miles NP 01/30/2020 10:14:00 AM EDT [facility] Outpatient Attender: Mohinder Olivares/Eliseo/Jhonny/Jose 01/23/2020 03:00:00 PM EDT [facility] ([facility], ) Outpatient Attender: WENDI HOLLOWAY MD Main Office 01/22/2020 08:15:00 AM EDT [facility] ([facility]) Outpatient Attender: Mckenna Ochoaerrer: Mckenna Miles NP 12/07/2019 08:33:00 AM EDT [facility] Outpatient Attender: Mckenna Catherine er: Sondra Marks MDConsultant: Mckenna Miles NP 12/05/2019 08:03:00 AM EDT - 12/05/2019 09:03:00 AM EDT [facility] Outpatient Attender: WENDI HOLLOWAY MD Main Office 07/10/2019 10:30:00 AM EST [facility] ([facility]) Outpatient Attender: Mckenna Miles NP 06/27/2019 11:12:00 AM E [facility] Immunizations Vaccine Date Status Description Data Source(s) VARICELLA-ZOSTER VIRUS GLYCOPROTEIN E,REC/AS01B ADJUVA NT/PF 05/27/2020 12:00:00 AM EDT completed [facility] INFLUENZA VACCINE QUADRIVALENT 2019- (65 YR UP)/MF59 C.1/PF 04/15/2020 12:00:00 AM EDT completed [facility] DIPHTHERIA,PERTUSSIS(ACELLULAR),TETANUS VACCINE 01/30/2020 1 2:00:00 AM EDT completed [facility] PNEUMOCOCCAL 23-VALENT POLYSACCHARIDE VACCINE 01/17/2020 12: 00:00 AM EDT completed [facility] Medications Medication Brand Name Start Date Product Form Dose Route Admi nistrative Instructions Pharmacy Instructions Status Indications Reaction Description Data Source(s) 100 mg/mL 07/24/2020 12:00:00 AM EST suspension 420 TAKE 10MLS BY MOUTH FOUR TIMES A DAY AND 1 HOUR BEFORE MEALS AND AT BEDTIME TAKE 10MLS BY MOUTH FOUR TIMES A DAY AND 1 HOUR BEFORE MEALS AND AT BEDTIME SOLD: 08/11/2020 [facility] 100 mg/mL 07/24/2020 12:00:00 AM EST suspension 420 TAKE 10MLS BY MOUTH FOUR TIMES A DAY AND 1 HOUR BEFORE MEALS AND AT BEDTIME TAKE 10MLS BY MOUTH FOUR TIMES A DAY AND 1 HOUR BEFORE MEALS AND AT BEDTIME SOLD: 07/25/2020 [facility] 100 mg 06/24/2020 12:00:00 AM EST tablet 180 TAKE ONE TABLET BY MOUTH TWICE A DAY TAKE ONE TABLET BY MOUTH TWICE A DAY SOLD: 06/26/2020 [facility] Esomeprazole 40 MG Delayed Release Oral Capsule ESOMEPRAZOLE MAGNESIUM 06/18/2020 12:00:00 AM EST capsule,delayed release(DR/EC) 90 TAKE ONE CAPSULE BY MOUTH EVERY DAY TAKE ONE CAPSULE BY MOUTH EVERY DAY SOLD: 06/22/2020 [facility] 100 mg/mL 05/07/2020 12:00:00 AM EDT suspension 420 TAKE 10ML BY MOUTH FOUR TIMES A DAY - TAKE 1 HOUR BEFORE MEALS AND AT BEDTIME TAKE 10ML BY MOUTH FOUR TIMES A DAY - TAKE 1 HOUR BEFORE MEALS AND AT BEDTIME SOLD: 05/21/2020 [facility] 100 mg/mL 05/07/2020 12:00:00 AM EDT suspension 420 TAKE 10ML BY MOUTH FOUR TIMES A DAY - TAKE 1 HOUR BEFORE MEALS AND AT BEDTIME TAKE 10ML BY MOUTH FOUR TIMES A DAY - TAKE 1 HOUR BEFORE MEALS AND AT BEDTIME SOLD: 05/10/2020 [facility] Sucralfate 05/06/2020 09:55:52 AM EDT 10 ML [facility] Spironolactone 100 MG Oral Tablet Spironolactone 05/06/2020 09:55:4 0 AM EDT 100 MG [facility] Esomeprazole 40 MG Delayed Release Oral Capsule ESOMEPRAZOLE MAGNESIUM 03/31/2020 12:00:00 AM EDT capsule,delayed release(DR/EC) 90 TAKE ONE CAPSULE BY MOUTH EVERY MORNING 30 MINUTES PRIOR TO FOOD OR DRINK TAKE ONE CAPSULE BY MOUTH EVERY MORNING 30 MINUTES PRIOR TO FOOD OR DRINK SOLD: 03/31/2020 [facility] Sucralfate 03/21/2020 11:15:48 AM EDT [address] [facility] 100 mg/mL 03/21/2020 12:00:00 AM EDT suspension 420 TAKE 10ML BY MOUTH FOUR TIMES A DAY, BEFORE MEALS AND AT BEDTIME TAKE 10ML BY MOUTH FOUR TIMES A DAY, BEFORE MEALS AND AT BEDTIME SOLD: 07/02/2020 [facility] 100 mg/mL 03/21/2020 12:00:00 AM EDT suspension 420 TAKE 10ML BY MOUTH FOUR TIMES A DAY, BEFORE MEALS AND AT BEDTIME TAKE 10ML BY MOUTH FOUR TIMES A DAY, BEFORE MEALS AND AT BEDTIME SOLD: 05/30/2020 [facility] 100 mg/mL 03/21/2020 12:00:00 AM EDT suspension 420 TAKE 10ML BY MOUTH FOUR TIMES A DAY, BEFORE MEALS AND AT BEDTIME TAKE 10ML BY MOUTH FOUR TIMES A DAY, BEFORE MEALS AND AT BEDTIME SOLD: 03/22/2020 [facility] 100 mg/mL 03/21/2020 12:00:00 AM EDT suspension 420 TAKE 10ML BY MOUTH FOUR TIMES A DAY, BEFORE MEALS AND AT BEDTIME TAKE 10ML BY MOUTH FOUR TIMES A DAY, BEFORE MEALS AND AT BEDTIME SOLD: 06/16/2020 [facility] 100 mg/mL 03/21/2020 12:00:00 AM EDT suspension 420 TAKE 10ML BY MOUTH FOUR TIMES A DAY, BEFORE MEALS AND AT BEDTIME TAKE 10ML BY MOUTH FOUR TIMES A DAY, BEFORE MEALS AND AT BEDTIME SOLD: 07/10/2020 [facility] 100 mg/mL 03/21/2020 12:00:00 AM EDT suspension 420 TAKE 10ML BY MOUTH FOUR TIMES A DAY, BEFORE MEALS AND AT BEDTIME TAKE 10ML BY MOUTH FOUR TIMES A DAY, BEFORE MEALS AND AT BEDTIME SOLD: 06/08/2020 [facility] Sucralfate 100 MG/ML Oral Suspension Sucralfate 03/06/2020 03:15: 01 PM EDT 10 ML completed [facility] Sucralfate 100 MG/ML Oral Suspension Sucralfate 03/06/2020 03:15: 01 PM EDT 10 ML active [facility] Esomeprazole 40 MG Delayed Release Oral Capsule Esomep razole Magnesium Esomeprazole Magnesium 03/06/2020 02:43:21 PM EDT [address] [facility] Esomeprazole 40 MG Delayed Release Oral Capsule Esomep razole Magnesium Esomeprazole Magnesium 03/06/2020 02:43:21 PM EDT [address] [facility] 100 mg/mL 03/06/2020 12:00:00 AM EDT suspension 420 TAKE 10ML BY MOUTH FOUR TIMES A DAY, 1 HOUR BEFORE MEALS AND AT BEDTIME TAKE 10ML BY MOUTH FOUR TIMES A DAY, 1 HOUR BEFORE MEALS AND AT BEDTIME SOLD: 04/29/2020 [facility] 100 mg/mL 03/06/2020 12:00:00 AM EDT suspension 420 TAKE 10ML BY MOUTH FOUR TIMES A DAY, 1 HOUR BEFORE MEALS AND AT BEDTIME TAKE 10ML BY MOUTH FOUR TIMES A DAY, 1 HOUR BEFORE MEALS AND AT BEDTIME SOLD: 03/31/2020 [facility] 100 mg/mL 03/06/2020 12:00:00 AM EDT suspension 420 TAKE 10ML BY MOUTH FOUR TIMES A DAY, 1 HOUR BEFORE MEALS AND AT BEDTIME TAKE 10ML BY MOUTH FOUR TIMES A DAY, 1 HOUR BEFORE MEALS AND AT BEDTIME SOLD: 03/06/2020 [facility] 100 mg/mL 03/06/2020 12:00:00 AM EDT suspension 420 TAKE 10ML BY MOUTH FOUR TIMES A DAY, 1 HOUR BEFORE MEALS AND AT BEDTIME TAKE 10ML BY MOUTH FOUR TIMES A DAY, 1 HOUR BEFORE MEALS AND AT BEDTIME SOLD: 03/14/2020 [facility] 100 mg/mL 03/06/2020 12:00:00 AM EDT suspension 420 TAKE 10ML BY MOUTH FOUR TIMES A DAY, 1 HOUR BEFORE MEALS AND AT BEDTIME TAKE 10ML BY MOUTH FOUR TIMES A DAY, 1 HOUR BEFORE MEALS AND AT BEDTIME SOLD: 04/09/2020 [facility] 100 mg/mL 03/06/2020 12:00:00 AM EDT suspension 420 TAKE 10ML BY MOUTH FOUR TIMES A DAY, 1 HOUR BEFORE MEALS AND AT BEDTIME TAKE 10ML BY MOUTH FOUR TIMES A DAY, 1 HOUR BEFORE MEALS AND AT BEDTIME SOLD: 04/20/2020 [facility] atorvastatin 40 MG Oral Tablet ATORVASTATIN CALCIUM 02/12/2020 1 2:00:00 AM EDT tablet 90 TAKE ONE TABLET BY MOUTH EVERY D AY TAKE ONE TABLET BY MOUTH EVERY DAY SOLD: 02/15/2020 [facility] 20 mg 02/12/2020 12:00:00 AM EDT tablet 90 TAKE ONE TABLET BY MOUTH EVERY DAY TAKE ONE TABLET BY MOUTH EVERY DAY SOLD: 02/15/2020 [facility] 20 mg 02/12/2020 12:00:00 AM EDT tablet 90 TAKE ONE TABLET BY MOUTH EVERY DAY TAKE ONE TABLET BY MOUTH EVERY DAY SOLD: 06/08/2020 [facility] atorvastatin 40 MG Oral Tablet ATORVASTATIN CALCIUM 02/12/2020 1 2:00:00 AM EDT tablet 90 TAKE ONE TABLET BY MOUTH EVERY D AY TAKE ONE TABLET BY MOUTH EVERY DAY SOLD: 07/02/2020 [facility] Spironolactone 100 MG Oral Tablet Spironolactone 01/30/2020 11:01:1 2 AM EDT 100 MG active [facility] Spironolactone 100 MG Oral Tablet Spironolactone 01/30/2020 11:01:1 2 AM EDT 100 MG active [facility] Spironolactone 100 MG Oral Tablet Spironolactone 01/30/2020 11:01:1 2 AM EDT 100 MG completed [facility] Omeprazole 20 MG Delayed Release Oral Tablet Omeprazole 01/30/2020 11:01:06 AM EDT 20 MG completed [facility] Omeprazole 20 MG Delayed Release Oral Tablet Omeprazole 01/30/2020 11:01:06 AM EDT 20 MG active [facility] Omeprazole 20 MG Delayed Release Oral Tablet Omeprazole 01/30/2020 11:01:06 AM EDT 20 MG completed [facility] meloxicam 7.5 MG Oral Tablet Meloxicam Meloxicam 01/30/2020 11:0 1:02 AM EDT 7.5 MG active [facility] meloxicam 7.5 MG Oral Tablet Meloxicam Meloxicam 01/30/2020 11:0 1:02 AM EDT 7.5 MG active [facility] meloxicam 7.5 MG Oral Tablet Meloxicam Meloxicam 01/30/2020 11:0 1:02 AM EDT 7.5 MG active [facility] atorvastatin 40 MG Oral Tablet Atorvastatin Atorvastatin 01/30/2020 11:00:57 AM EDT 40 MG active [facility] atorvastatin 40 MG Oral Tablet Atorvastatin Atorvastatin 01/30/2020 11:00:57 AM EDT 40 MG active [facility] atorvastatin 40 MG Oral Tablet Atorvastatin Atorvastatin 01/30/2020 11:00:57 AM EDT 40 MG active [facility] Lisinopril 20 MG Oral Tablet Lisinopril 01/30/2020 11:00:55 AM EDT 20 MG active [facility] Lisinopril 20 MG Oral Tablet Lisinopril 01/30/2020 11:00:55 AM EDT 20 MG active [facility] Lisinopril 20 MG Oral Tablet Lisinopril 01/30/2020 11:00:55 AM EDT 20 MG active [facility] carvedilol 3.125 MG Oral Tablet Carvedilol Carvedilol 01/30/2020 11:00:09 AM EDT 3.[address] [facility] [place] carvedilol 3.125 MG Oral Tablet Carvedilol Carvedilol 01/30/2020 11:00:09 AM EDT 3.[address] [facility] [place] carvedilol 3.125 MG Oral Tablet Carvedilol Carvedilol 01/30/2020 11:00:09 AM EDT 3.[address] [facility] [place] Amlodipine 2.5 MG Oral Tablet Amlodipine 01/30/2020 10:59:34 AM EDT 2.5 MG active [facility] Amlodipine 2.5 MG Oral Tablet Amlodipine 01/30/2020 10:59:34 AM EDT 2.5 MG active [facility] Amlodipine 2.5 MG Oral Tablet Amlodipine 01/30/2020 10:59:34 AM EDT 2.5 MG active [facility] 40 mg 01/24/2020 12:00:00 AM EDT capsule,delayed release (DR/EC) 90 TAKE ONE CAPSULE BY MOUTH EVERY MORNING 30 MINUTES PRIOR TO FOOD OR DRINK TAKE ONE CAPSULE BY MOUTH EVERY MORNING 30 MINUTES PRIOR TO FOOD OR DRINK SOLD: 01/24/2020 [facility] Esomeprazole 40 MG Delayed Release Oral Capsule Esomeprazole Magnesium 01/24/2020 12:00:00 AM EDT ORAL active [facility] ([facility], ) 2.5 mg 01/22/2020 12:00:00 AM EDT tablet 90 TAKE ONE TABLET BY MOUTH EVERY DAY TAKE ONE TABLET BY MOUTH EVERY DAY SOLD: 07/13/2020 [facility] 2.5 mg 01/22/2020 12:00:00 AM EDT tablet 90 TAKE ONE TABLET BY MOUTH EVERY DAY TAKE ONE TABLET BY MOUTH EVERY DAY SOLD: 01/23/2020 [facility] carvedilol 3.125 MG Oral Tablet CARVEDILOL 01/22/2020 12:00:00 AM EDT tablet 180 TAKE ONE TABLET BY MOUTH TWICE A DAY TAKE ONE TA BLET BY MOUTH TWICE A DAY SOLD: 07/17/2020 [facility] Amlodipine 2.5 MG Oral Tablet Amlodipine Besylate 01/22/2020 12:00: 00 AM EDT ORAL active [facility] [place] carvedilol 3.125 MG Oral Tablet Carvedilol 01/22/2020 12:00:00 AM EDT ORAL active [facility] [place] carvedilol 3.125 MG Oral Tablet CARVEDILOL 01/22/2020 12:00:00 AM EDT tablet 180 TAKE ONE TABLET BY MOUTH TWICE A DAY TAKE ONE TA BLET BY MOUTH TWICE A DAY SOLD: 01/23/2020 [facility] 2.5 mg 01/22/2020 12:00:00 AM EDT tablet 90 TAKE ONE TABLET BY MOUTH EVERY DAY TAKE ONE TABLET BY MOUTH EVERY DAY SOLD: 04/15/2020 [facility] carvedilol 3.125 MG Oral Tablet CARVEDILOL 01/22/2020 12:00:00 AM EDT tablet 180 TAKE ONE TABLET BY MOUTH TWICE A DAY TAKE ONE TA BLET BY MOUTH TWICE A DAY SOLD: 04/20/2020 [facility] 20 mg 01/06/2020 12:00:00 AM EDT capsule,delayed release (DR/EC) 30 TAKE ONE CAPSULE BY MOUTH EVERY DAY TAKE ONE CAPSULE BY MOUTH EVERY DAY SOLD: 01/07/2020 [facility] 50 mcg/actuation 2019 12:00:00 AM EDT spray,non-aeroso l 17 SPRAY TWO SPRAYS IN EACH NOSTRIL EVERY DAY SPRAY TWO SPRAYS IN EACH NOSTRIL EVERY DAY SOLD: 12/17/2019 [facility] Isosorbide Mononitrate 10 MG Oral Tablet Isosorbide Mononitr ate 12/07/2019 11:20:35 AM EDT 10 MG active L [facility] Isosorbide Mononitrate 10 MG Oral Tablet Isosorbide Mononitr ate 12/07/2019 11:20:35 AM EDT 10 MG active L [facility] Isosorbide Mononitrate 10 MG Oral Tablet Isosorbide Mononitr ate 12/07/2019 11:20:35 AM EDT 10 MG active L [facility] 12/07/2019 08:55:05 AM EDT 2 SPRAY active [facility] 12/07/2019 08:55:05 AM EDT 2 SPRAY active [facility] 12/07/2019 08:55:05 AM EDT 2 SPRAY active [facility] 12/07/2019 08:55:05 AM EDT [address] [facility] Spironolactone 100 MG Oral Tablet Spironolactone 12/07/2019 08:54:5 8 AM EDT 100 MG completed [facility] Spironolactone 100 MG Oral Tablet Spironolactone 12/07/2019 08:54:5 8 AM EDT 100 MG active [facility] Spironolactone 100 MG Oral Tablet Spironolactone 12/07/2019 08:54:5 8 AM EDT 100 MG completed [facility] Spironolactone 100 MG Oral Tablet Spironolactone 12/07/2019 08:54:5 8 AM EDT 100 MG completed [facility] Omeprazole 20 MG Delayed Release Oral Tablet Omeprazole 12/07/2019 08:54:50 AM EDT 20 MG active [facility] Omeprazole 20 MG Delayed Release Oral Tablet Omeprazole 12/07/2019 08:54:50 AM EDT 20 MG completed [facility] Omeprazole 20 MG Delayed Release Oral Tablet Omeprazole 12/07/2019 08:54:50 AM EDT 20 MG completed [facility] Omeprazole 20 MG Delayed Release Oral Tablet Omeprazole 12/07/2019 08:54:50 AM EDT 20 MG completed [facility] meloxicam 7.5 MG Oral Tablet Meloxicam Meloxicam 12/07/2019 08:5 4:33 AM EDT 7.5 MG completed [facility] meloxicam 7.5 MG Oral Tablet Meloxicam Meloxicam 12/07/2019 08:5 4:33 AM EDT 7.5 MG completed [facility] meloxicam 7.5 MG Oral Tablet Meloxicam Meloxicam 12/07/2019 08:5 4:33 AM EDT 7.5 MG active [facility] meloxicam 7.5 MG Oral Tablet Meloxicam Meloxicam 12/07/2019 08:5 4:33 AM EDT 7.5 MG completed [facility] Lisinopril 20 MG Oral Tablet Lisinopril 12/07/2019 08:54:22 AM EDT 20 MG active [facility] Lisinopril 20 MG Oral Tablet Lisinopril 12/07/2019 08:54:22 AM EDT 20 MG completed [facility] Lisinopril 20 MG Oral Tablet Lisinopril 12/07/2019 08:54:22 AM EDT 20 MG completed [facility] Lisinopril 20 MG Oral Tablet Lisinopril 12/07/2019 08:54:22 AM EDT 20 MG completed [facility] Isosorbide Mononitrate 10 MG Oral Tablet Isosorbide Mononitr ate 12/07/2019 08:54:07 AM EDT [address] [facility] Isosorbide Mononitrate 10 MG Oral Tablet Isosorbide Mononitr ate 12/07/2019 08:54:07 AM EDT [address] [facility] Isosorbide Mononitrate 10 MG Oral Tablet Isosorbide Mononitr ate 12/07/2019 08:54:07 AM EDT [address] [facility] Isosorbide Mononitrate 10 MG Oral Tablet Isosorbide Mononitr ate 12/07/2019 08:54:07 AM EDT 10 MG active [facility] atorvastatin 40 MG Oral Tablet Atorvastatin Atorvastatin 12/07/2019 08:53:55 AM EDT 40 MG completed [facility] atorvastatin 40 MG Oral Tablet Atorvastatin Atorvastatin 12/07/2019 08:53:55 AM EDT 40 MG completed [facility] atorvastatin 40 MG Oral Tablet Atorvastatin Atorvastatin 12/07/2019 08:53:55 AM EDT 40 MG active [facility] atorvastatin 40 MG Oral Tablet Atorvastatin Atorvastatin 12/07/2019 08:53:55 AM EDT 40 MG completed [facility] Atenolol 25 MG Oral Tablet Atenolol 12/07/2019 08:53:37 AM EDT 2 5 MG completed [facility] Atenolol 25 MG Oral Tablet Atenolol 12/07/2019 08:53:37 AM EDT 2 5 MG completed [facility] Atenolol 25 MG Oral Tablet Atenolol 12/07/2019 08:53:37 AM EDT 2 5 MG active [facility] Atenolol 25 MG Oral Tablet Atenolol 12/07/2019 08:53:37 AM EDT 2 5 MG completed [facility] Amlodipine 5 MG Oral Tablet Amlodipine 12/07/2019 08:53:27 AM EDT 5 MG completed [facility] Amlodipine 5 MG Oral Tablet Amlodipine 12/07/2019 08:53:27 AM EDT 5 MG active [facility] Amlodipine 5 MG Oral Tablet Amlodipine 12/07/2019 08:53:27 AM EDT 5 MG completed [facility] Amlodipine 5 MG Oral Tablet Amlodipine 12/07/2019 08:53:27 AM EDT 5 MG completed [facility] Isosorbide Mononitrate 10 MG Oral Tablet Isosorbide Mononitr ate 12/07/2019 08:43:33 AM EDT [address] [facility] Isosorbide Mononitrate 10 MG Oral Tablet Isosorbide Mononitr ate 12/07/2019 08:43:33 AM EDT [address] [facility] Isosorbide Mononitrate 10 MG Oral Tablet Isosorbide Mononitr ate 12/07/2019 08:43:33 AM EDT [address] [facility] Isosorbide Mononitrate 10 MG Oral Tablet Isosorbide Mononitr ate 12/07/2019 08:43:33 AM EDT [address] [facility] 40 mg 12/07/2019 12:00:00 AM EDT tablet 90 TAKE ONE TABLET BY MOUTH EVERY DAY TAKE ONE TABLET BY MOUTH EVERY DAY SOLD: 2019 [facility] 10 mg 12/07/2019 12:00:00 AM EDT tablet 90 TAKE ONE-HALF TABLET BY MOUTH EVERY MORNING AND EVERY IN THE EVENING TAKE ONE-HALF TABLET BY MOUTH EVERY MORNING AND EVERY IN THE EVENING SOLD: 03/19/2020 [facility] 20 mg 12/07/2019 12:00:00 AM EDT tablet 90 TAKE ONE TABLET BY MOUTH EVERY DAY TAKE ONE TABLET BY MOUTH EVERY DAY SOLD: 2019 [facility] 10 mg 12/07/2019 12:00:00 AM EDT tablet 90 TAKE ONE-HALF TABLET BY MOUTH EVERY MORNING AND EVERY IN THE EVENING TAKE ONE-HALF TABLET BY MOUTH EVERY MORNING AND EVERY IN THE EVENING SOLD: 2019 [facility] 10 mg 12/07/2019 12:00:00 AM EDT tablet 90 TAKE ONE-HALF TABLET BY MOUTH EVERY MORNING AND EVERY IN THE EVENING TAKE ONE-HALF TABLET BY MOUTH EVERY MORNING AND EVERY IN THE EVENING SOLD: 06/16/2020 [facility] 25 mg 12/07/2019 12:00:00 AM EDT tablet 90 TAKE ONE TABLET BY MOUTH EVERY DAY TAKE ONE TABLET BY MOUTH EVERY DAY SOLD: 2019 [facility] 5 mg 12/07/2019 12:00:00 AM EDT tablet 90 TAKE ONE TABLET BY MOUTH EVERY DAY TAKE ONE TABLET BY MOUTH EVERY DAY SOLD: 2019 [facility] 7.5 mg 12/07/2019 12:00:00 AM EDT tablet 90 TAKE ONE TABLET BY MOUTH EVERY DAY TAKE ONE TABLET BY MOUTH EVERY DAY SOLD: 2019 [facility] 50 mcg/actuation 11/19/2019 12:00:00 AM EDT spray,non-aeroso l 17 SPRAY TWO SPRAYS IN EACH NOSTRIL EVERY DAY SPRAY TWO SPRAYS IN EACH NOSTRIL EVERY DAY SOLD: 11/20/2019 [facility] Spironolactone 100 MG Oral Tablet Spironolactone 10/17/2019 08:26:5 8 AM EDT 100 MG completed [facility] Spironolactone 100 MG Oral Tablet Spironolactone 10/17/2019 08:26:5 8 AM EDT 100 MG completed [facility] Spironolactone 100 MG Oral Tablet Spironolactone 10/17/2019 08:26:5 8 AM EDT 100 MG completed [facility] Spironolactone 100 MG Oral Tablet Spironolactone 10/17/2019 08:26:5 8 AM EDT 100 MG completed [facility] Omeprazole 20 MG Delayed Release Oral Tablet Omeprazole 10/17/2019 08:26:52 AM EDT 20 MG completed [facility] Omeprazole 20 MG Delayed Release Oral Tablet Omeprazole 10/17/2019 08:26:52 AM EDT 20 MG completed [facility] Omeprazole 20 MG Delayed Release Oral Tablet Omeprazole 10/17/2019 08:26:52 AM EDT 20 MG completed [facility] Omeprazole 20 MG Delayed Release Oral Tablet Omeprazole 10/17/2019 08:26:52 AM EDT 20 MG completed [facility] 10/17/2019 08:26:40 AM EDT 2 SPRAY completed [facility] 10/17/2019 08:26:40 AM EDT 2 SPRAY completed [facility] 10/17/2019 08:26:40 AM EDT 2 SPRAY completed [facility] 10/17/2019 08:26:40 AM EDT [address] [facility] Lisinopril 20 MG Oral Tablet Lisinopril 10/17/2019 08:26:18 AM EDT 20 MG completed [facility] Lisinopril 20 MG Oral Tablet Lisinopril 10/17/2019 08:26:18 AM EDT 20 MG completed [facility] Lisinopril 20 MG Oral Tablet Lisinopril 10/17/2019 08:26:18 AM EDT 20 MG completed [facility] Lisinopril 20 MG Oral Tablet Lisinopril 10/17/2019 08:26:18 AM EDT 20 MG completed [facility] Isosorbide Mononitrate 20 MG Oral Tablet Isosorbide Mononitr ate 10/17/2019 08:25:05 AM EDT [address] [facility] Isosorbide Mononitrate 20 MG Oral Tablet Isosorbide Mononitr ate 10/17/2019 08:25:05 AM EDT [address] [facility] Isosorbide Mononitrate 20 MG Oral Tablet Isosorbide Mononitr ate 10/17/2019 08:25:05 AM EDT [address] [facility] Isosorbide Mononitrate 20 MG Oral Tablet Isosorbide Mononitr ate 10/17/2019 08:25:05 AM EDT [address] [facility] atorvastatin 40 MG Oral Tablet Atorvastatin Atorvastatin 10/17/2019 08:24:47 AM EDT 40 MG completed [facility] atorvastatin 40 MG Oral Tablet Atorvastatin Atorvastatin 10/17/2019 08:24:47 AM EDT 40 MG completed [facility] atorvastatin 40 MG Oral Tablet Atorvastatin Atorvastatin 10/17/2019 08:24:47 AM EDT 40 MG completed [facility] atorvastatin 40 MG Oral Tablet Atorvastatin Atorvastatin 10/17/2019 08:24:47 AM EDT 40 MG completed [facility] Atenolol 25 MG Oral Tablet Atenolol 10/17/2019 08:24:28 AM EDT 2 5 MG completed [facility] Atenolol 25 MG Oral Tablet Atenolol 10/17/2019 08:24:28 AM EDT 2 5 MG completed [facility] Atenolol 25 MG Oral Tablet Atenolol 10/17/2019 08:24:28 AM EDT 2 5 MG completed [facility] Atenolol 25 MG Oral Tablet Atenolol 10/17/2019 08:24:28 AM EDT 2 5 MG completed [facility] Amlodipine 5 MG Oral Tablet Amlodipine 10/17/2019 08:24:13 AM EDT 5 MG completed [facility] Amlodipine 5 MG Oral Tablet Amlodipine 10/17/2019 08:24:13 AM EDT 5 MG completed [facility] Amlodipine 5 MG Oral Tablet Amlodipine 10/17/2019 08:24:13 AM EDT 5 MG completed [facility] Amlodipine 5 MG Oral Tablet Amlodipine 10/17/2019 08:24:13 AM EDT 5 MG completed [facility] 20 mg 10/17/2019 12:00:00 AM EDT tablet 120 TAKE ONE TABLET BY MOUTH TWICE A DAY TAKE ONE TABLET BY MOUTH TWICE A DAY SOLD: 10/19/2019 [facility] 100 mg 07/13/2019 12:00:00 AM EST tablet 180 TAKE ONE TABLET BY MOUTH TWICE A DAY TAKE ONE TABLET BY MOUTH TWICE A DAY SOLD: 04/15/2020 [facility] 100 mg 07/13/2019 12:00:00 AM EST tablet 180 TAKE ONE TABLET BY MOUTH TWICE A DAY TAKE ONE TABLET BY MOUTH TWICE A DAY SOLD: 01/18/2020 [facility] 100 mg 07/13/2019 12:00:00 AM EST tablet 180 TAKE ONE TABLET BY MOUTH TWICE A DAY TAKE ONE TABLET BY MOUTH TWICE A DAY SOLD: 07/14/2019 [facility] 100 mg 07/13/2019 12:00:00 AM EST tablet 180 TAKE ONE TABLET BY MOUTH TWICE A DAY TAKE ONE TABLET BY MOUTH TWICE A DAY SOLD: 10/17/2019 [facility] 20 mg 07/11/2019 12:00:00 AM EST capsule,delayed release (DR/EC) 180 TAKE ONE CAPSULE BY MOUTH TWICE A DAY TAKE ONE CAPSULE BY MOUTH TWICE A DAY SOLD: 10/11/2019 [facility] 20 mg 07/11/2019 12:00:00 AM EST capsule,delayed release (DR/EC) 180 TAKE ONE CAPSULE BY MOUTH TWICE A DAY TAKE ONE CAPSULE BY MOUTH TWICE A DAY SOLD: 07/11/2019 [facility] 50 mcg/actuation 06/28/2019 12:00:00 AM EST spray,non-aeroso l 17 SPRAY TWO SPRAYS IN EACH NOSTRIL EVERY DAY SPRAY TWO SPRAYS IN EACH NOSTRIL EVERY DAY SOLD: 10/15/2019 [facility] 50 mcg/actuation 06/28/2019 12:00:00 AM EST spray,non-aeroso l 17 SPRAY TWO SPRAYS IN EACH NOSTRIL EVERY DAY SPRAY TWO SPRAYS IN EACH NOSTRIL EVERY DAY SOLD: 06/30/2019 [facility] atorvastatin 40 MG Oral Tablet Atorvastatin Atorvastatin 06/27/2019 12:38:38 PM EST 40 MG completed [facility] atorvastatin 40 MG Oral Tablet Atorvastatin Atorvastatin 06/27/2019 12:38:38 PM EST 40 MG completed [facility] atorvastatin 40 MG Oral Tablet Atorvastatin Atorvastatin 06/27/2019 12:38:38 PM EST 40 MG completed [facility] atorvastatin 40 MG Oral Tablet Atorvastatin Atorvastatin 06/27/2019 12:38:38 PM EST 40 MG completed [facility] Omeprazole 20 MG Delayed Release Oral Tablet Omeprazole 06/27/2019 12:38:21 PM EST 20 MG completed [facility] Omeprazole 20 MG Delayed Release Oral Tablet Omeprazole 06/27/2019 12:38:21 PM EST 20 MG completed [facility] Omeprazole 20 MG Delayed Release Oral Tablet Omeprazole 06/27/2019 12:38:21 PM EST 20 MG completed [facility] Omeprazole 20 MG Delayed Release Oral Tablet Omeprazole 06/27/2019 12:38:21 PM EST 20 MG completed [facility] Spironolactone 100 MG Oral Tablet Spironolactone 06/27/2019 12:38:0 3 PM EST 100 MG completed [facility] Spironolactone 100 MG Oral Tablet Spironolactone 06/27/2019 12:38:0 3 PM EST 100 MG completed [facility] Spironolactone 100 MG Oral Tablet Spironolactone 06/27/2019 12:38:0 3 PM EST 100 MG completed [facility] Spironolactone 100 MG Oral Tablet Spironolactone 06/27/2019 12:38:0 3 PM EST [address] [facility] 06/27/2019 12:36:40 PM EST 2 SPRAY completed [facility] 06/27/2019 12:36:40 PM EST 2 SPRAY completed [facility] 06/27/2019 12:36:40 PM EST 2 SPRAY completed [facility] 06/27/2019 12:36:40 PM EST [address] [facility] Multivitamin 06/27/2019 12:00:23 PM EST 1 TAB acti [facility] Multivitamin 06/27/2019 12:00:23 PM EST 1 TAB acti [facility] Multivitamin 06/27/2019 12:00:23 PM EST 1 TAB acti [facility] Multivitamin 06/27/2019 12:00:23 PM EST 1 TAB acti [facility] meloxicam 7.5 MG Oral Tablet Meloxicam Meloxicam 06/27/2019 12:0 0:10 PM EST 7.5 MG completed [facility] meloxicam 7.5 MG Oral Tablet Meloxicam Meloxicam 06/27/2019 12:0 0:10 PM EST 7.5 MG [facility] meloxicam 7.5 MG Oral Tablet Meloxicam Meloxicam 06/27/2019 12:0 0:10 PM EST 7.5 MG completed [facility] meloxicam 7.5 MG Oral Tablet Meloxicam Meloxicam 06/27/2019 12:0 0:10 PM EST 7.5 MG completed [facility] Lisinopril 20 MG Oral Tablet Lisinopril 06/27/2019 11:59:49 AM EST 20 MG completed [facility] Lisinopril 20 MG Oral Tablet Lisinopril 06/27/2019 11:59:49 AM EST 20 MG completed [facility] Lisinopril 20 MG Oral Tablet Lisinopril 06/27/2019 11:59:49 AM EST 20 MG completed [facility] Lisinopril 20 MG Oral Tablet Lisinopril 06/27/2019 11:59:49 AM EST 20 MG completed [facility] Isosorbide Mononitrate 20 MG Oral Tablet Isosorbide Mononitr ate 06/27/2019 11:59:28 AM EST [address] [facility] Isosorbide Mononitrate 20 MG Oral Tablet Isosorbide Mononitr ate 06/27/2019 11:59:28 AM EST [address] [facility] Isosorbide Mononitrate 20 MG Oral Tablet Isosorbide Mononitr ate 06/27/2019 11:59:28 AM EST [address] [facility] Isosorbide Mononitrate 20 MG Oral Tablet Isosorbide Mononitr ate 06/27/2019 11:59:28 AM EST 20 MG [facility] Calcium Carbonate 1500 MG / Cholecalcife rol 800 UNT Chewable Tablet Calcium Carbonate-Vitamin D3 (Calcium 600 With Vitamin D3) 600 mg(1,500mg) -400 unit tablet,chewable Calcium Carbonate-Vitamin D3 (Calcium 60 0 With Vitamin D3) 600 mg(1,500mg) -400 unit tablet,chewable 06/27/2019 11:58:25 AM EST active [facility] Calcium Carbonate 1500 MG / Cholecalcife rol 800 UNT Chewable Tablet Calcium Carbonate-Vitamin D3 Calcium Carbonate-Vitamin D3 06/27/2019 11:58:25 AM EST active [facility] Calcium Carbonate 1500 MG / Cholecalcife rol 800 UNT Chewable Tablet Calcium Carbonate-Vitamin D3 (Calcium 600 With Vitamin D3) 600 mg(1,500mg) -400 unit tablet,chewable Calcium Carbonate-Vitamin D3 (Calcium 60 0 With Vitamin D3) 600 mg(1,500mg) -400 unit tablet,chewable 06/27/2019 11:58:25 AM EST active [facility] Calcium Carbonate 1500 MG / Cholecalcife rol 800 UNT Chewable Tablet Calcium Carbonate-Vitamin D3 Calcium Carbonate-Vitamin D3 06/27/2019 11:58:25 AM EST active [facility] Atenolol 25 MG Oral Tablet Atenolol 06/27/2019 11:58:06 AM EST 2 5 MG completed [facility] Atenolol 25 MG Oral Tablet Atenolol 06/27/2019 11:58:06 AM EST 2 5 MG [facility] Atenolol 25 MG Oral Tablet Atenolol 06/27/2019 11:58:06 AM EST 2 5 MG [facility] Atenolol 25 MG Oral Tablet Atenolol 06/27/2019 11:58:06 AM EST 2 5 MG [facility] Amlodipine 5 MG Oral Tablet Amlodipine 06/27/2019 11:57:37 AM EST 5 MG [facility] Amlodipine 5 MG Oral Tablet Amlodipine 06/27/2019 11:57:37 AM EST 5 MG [facility] Amlodipine 5 MG Oral Tablet Amlodipine 06/27/2019 11:57:37 AM EST 5 MG [facility] Amlodipine 5 MG Oral Tablet Amlodipine 06/27/2019 11:57:37 AM EST 5 MG [facility] Omeprazole 20 MG Delayed Release Oral Tablet Omeprazole 06/27/2019 11:57:15 AM EST 20 MG [facility] Omeprazole 20 MG Delayed Release Oral Tablet Omeprazole 06/27/2019 11:57:15 AM EST 20 MG [facility] Omeprazole 20 MG Delayed Release Oral Tablet Omeprazole 06/27/2019 11:57:15 AM EST 20 MG [facility] Omeprazole 20 MG Delayed Release Oral Tablet Omeprazole 06/27/2019 11:57:15 AM EST 20 MG [facility] Spironolactone 100 MG Oral Tablet Spironolactone 06/27/2019 11:56:5 2 AM EST 100 MG completed [facility] Spironolactone 100 MG Oral Tablet Spironolactone 06/27/2019 11:56:5 2 AM EST 100 MG completed [facility] Spironolactone 100 MG Oral Tablet Spironolactone 06/27/2019 11:56:5 2 AM EST 100 MG completed [facility] Spironolactone 100 MG Oral Tablet Spironolactone 06/27/2019 11:56:5 2 AM EST 100 MG completed [facility] atorvastatin 40 MG Oral Tablet Atorvastatin Atorvastatin 06/27/2019 11:56:34 AM EST 40 MG completed [facility] atorvastatin 40 MG Oral Tablet Atorvastatin Atorvastatin 06/27/2019 11:56:34 AM EST 40 MG completed [facility] atorvastatin 40 MG Oral Tablet Atorvastatin Atorvastatin 06/27/2019 11:56:34 AM EST 40 MG completed [facility] atorvastatin 40 MG Oral Tablet Atorvastatin Atorvastatin 06/27/2019 11:56:34 AM EST 40 MG completed [facility] 06/27/2019 11:55:09 AM EST 2 SPRAY completed [facility] 06/27/2019 11:55:09 AM EST 2 SPRAY completed [facility] 06/27/2019 11:55:09 AM EST 2 SPRAY completed [facility] 06/27/2019 11:55:09 AM EST [address] [facility] 40 mg 06/27/2019 12:00:00 AM EST tablet 90 TAKE ONE TABLET BY MOUTH EVERY DAY TAKE ONE TABLET BY MOUTH EVERY DAY SOLD: 06/30/2019 [facility] 40 mg 06/27/2019 12:00:00 AM EST tablet 90 TAKE ONE TABLET BY MOUTH EVERY DAY TAKE ONE TABLET BY MOUTH EVERY DAY SOLD: 09/27/2019 [facility] 20 mg 05/22/2019 12:00:00 AM EDT tablet 30 TAKE ONE TABLET BY MOUTH AT BEDTIME TAKE ONE TABLET BY MOUTH AT BEDTIME SOLD: 10/11/2019 [facility] 20 mg 05/22/2019 12:00:00 AM EDT tablet 30 TAKE ONE TABLET BY MOUTH AT BEDTIME TAKE ONE TABLET BY MOUTH AT BEDTIME SOLD: 09/12/2019 [facility] 20 mg 05/22/2019 12:00:00 AM EDT tablet 30 TAKE ONE TABLET BY MOUTH AT BEDTIME TAKE ONE TABLET BY MOUTH AT BEDTIME SOLD: 06/14/2019 [facility] 20 mg 05/22/2019 12:00:00 AM EDT tablet 30 TAKE ONE TABLET BY MOUTH AT BEDTIME TAKE ONE TABLET BY MOUTH AT BEDTIME SOLD: 07/14/2019 [facility] 20 mg 05/22/2019 12:00:00 AM EDT tablet 30 TAKE ONE TABLET BY MOUTH AT BEDTIME TAKE ONE TABLET BY MOUTH AT BEDTIME SOLD: 11/10/2019 [facility] 20 mg 05/22/2019 12:00:00 AM EDT tablet 30 TAKE ONE TABLET BY MOUTH AT BEDTIME TAKE ONE TABLET BY MOUTH AT BEDTIME SOLD: 08/13/2019 [facility] 100 mg 04/23/2019 12:00:00 AM EDT tablet 60 TAKE ONE TABLET BY MOUTH TWICE A DAY TAKE ONE TABLET BY MOUTH TWICE A DAY SOLD: 06/22/2019 [facility] 20 mg 04/14/2019 12:00:00 AM EDT capsule,delayed release (DR/EC) 60 TAKE ONE CAPSULE BY MOUTH TWICE A DAY TAKE ONE CAPSULE BY MOUTH TWICE A DAY SOLD: 06/14/2019 [facility] 10 mg 03/30/2019 12:00:00 AM EDT tablet 90 TAKE 1/2 TABLET BY MOUTH TWO TIMES A DAY TAKE 1/2 TABLET BY MOUTH TWO TIMES A DAY SOLD: 06/25/2019 [facility] 10 mg 03/30/2019 12:00:00 AM EDT tablet 90 TAKE 1/2 TABLET BY MOUTH TWO TIMES A DAY TAKE 1/2 TABLET BY MOUTH TWO TIMES A DAY SOLD: 09/22/2019 [facility] meloxicam 7.5 MG Oral Tablet Meloxicam 03/28/2019 12:00:00 AM EDT ORAL completed [facility] ([facility]) Amlodipine 5 MG Oral Tablet amLODIPine Besylate 5MG Or al Tablet amLODIPine Besylate 5MG Oral Tablet 03/21/2019 12:00:00 AM EDT 1 active Amlodipine 5 MG Oral Tablet [place] [facility]) Spironolactone 100 MG Oral Tablet Spironolactone 100MG Oral Tablet Spironolactone 100MG Oral Tablet 03/21/2019 12:00:00 AM EDT active Spironolactone 100 MG Oral Tablet [facility]) Lisinopril 5 MG Oral Tablet Lisinopril 5MG Oral Tablet Lisinopril 5MG Oral Tablet 03/21/2019 12:00:00 AM EDT active Lisinopril 5 MG Oral Tablet [facility]) Nasonex 50MCG/ACT Nasal Suspension Nasonex 50MCG/ACT Nasal S uspension 03/21/2019 12:00:00 AM EDT active mometasone furoate 0.05 MG/ACTUAT Metered Dose Nasal [place] [Nasonex] [facility]) meloxicam 7.5 MG Oral Tablet Meloxicam 7.5MG Oral Tabl et Meloxicam 7.5MG Oral Tablet 03/21/2019 12:00:00 AM EDT active meloxicam 7.5 MG Oral Tablet [facility]) atorvastatin 40 MG Oral Tablet Atorvastatin Calcium 40 MG Oral Tablet Atorvastatin Calcium 40MG Oral Tablet 03/21/2019 12:00:00 AM EDT active atorvastatin 40 MG Oral Tablet [facility]) Atenolol 25 MG Oral Tablet Atenolol 25MG Oral Tablet Atenolo l 25MG Oral Tablet 03/21/2019 12:00:00 AM EDT active Atenolol 25 MG Oral Tablet [facility]) Omeprazole 20 MG Delayed Release Oral Ca psule Omeprazole 20MG Oral Capsule Delayed Release Omeprazole 20MG Oral Capsule Delayed Release 9 12:00:00 AM EDT active Omeprazole 20 MG Delayed Release Oral Capsule [facility]) 25 mg 12/27/2018 12:00:00 AM EDT tablet 90 TAKE ONE TABLET BY MOUTH EVERY DAY TAKE ONE TABLET BY MOUTH EVERY DAY SOLD: 09/16/2019 [facility] 25 mg 12/27/2018 12:00:00 AM EDT tablet 90 TAKE ONE TABLET BY MOUTH EVERY DAY TAKE ONE TABLET BY MOUTH EVERY DAY SOLD: 06/18/2019 [facility] 5 mg 10/03/2018 12:00:00 AM EST tablet 90 TAKE ONE TABLET BY MOUTH EVERY DAY TAKE ONE TABLET BY MOUTH EVERY DAY SOLD: 06/22/2019 [facility] 5 mg 10/03/2018 12:00:00 AM EST tablet 90 TAKE ONE TABLET BY MOUTH EVERY DAY TAKE ONE TABLET BY MOUTH EVERY DAY SOLD: 09/20/2019 [facility] Insurance Providers Payer name Policy type / Coverage type Policy ID Covered green party ID Covered green party's relationship to foster Policy Foster Plan Information MEDICARE BLUE PPO 306 [id number] SP [id number] BLUE CROSS BLUE SHIELD MCR -OP [id number] 18 [id number] EXCELLUS BCBS B [id number] S VYM [id number] BCBS of [facility] Other 0 Self 0 BCBS of [facility] Other 0 Self 0 BCBS Medicare Blue U/W Commercial [id number] Self [id number] Medicare Blue Ppo Commercial [id number] Self [id number] Cigna/Conn Gen/MVP Medigap Part B [id number] BCBS of [facility] Other 0 Self 0 BCBS Medicare Blue U/W Commercial [id number] Self [id number] BCBS Medicare Blue U/W Commercial [id number] Self [id number] BCBS Medicare Blue U/W Commercial [id number] Self [id number] BCBS of [facility] Other 0 Self 0 BCBS of [facility] Other 0 Self 0 BCBS Medicare Commercial [id number] Self [id number] [id number] EXCELLUS MEDICARE BLUE PPO G [id number] Self [id number] BCBS Medicare Commercial [id number] Self [id number] [id number] MEDICARE BLUE PPO 306 [id number] SP [id number] BCBS Medicare Commercial [id number] Self [id number] [id number] BCBS Medicare Commercial [id number] Self [id number] [id number] BCBS Medicare Commercial [id number] Self [id number] [id number] BCBS Medicare Commercial [id number] Self [id number] [id number] BCBS Medicare Commercial [id number] Self [id number] [id number] BCBS Medicare Commercial [id number] Self [id number] [id number] BCBS Medicare Commercial [id number] Self [id number] [id number] Medicare Blue Ppo Commercial [id number] Self [id number] Cigna/Conn Gen/MVP Medigap Part B Medicare Blue Ppo Commercial Self BCBS Medicare Commercial Self EXCELLUS BCBS B [id number] S VYM [id number] BLUE CROSS BLUE SHIELD -O/P [id number] 18 [id number] BS Of [facility] Maintenance [facility] (O) Self BLUE CROSS BLUE SHIELD-O/P [id number] 18 [id number] Problems, Conditions, and Diagnoses Code Display Name Description Problem Type Effective Dates Data Source(s) 000370738 Aortic valve stenosis with insufficiency Aortic valve stenosis with insufficiency Problem 01/22/2020 12:00:00 AM EDT [facility] ([facility]) E785 Hyperlipidemia, unspecified Hyperlipidemia, unspecifie d Diagnosis 12/05/2019 08:03:00 AM EDT [facility] Surgeries/Procedures Procedure Description Date Indications Data Source(s) Ultrasonography of breast (procedure) 04/04/2020 01:41 :[address] [facility] Screening mammography (procedure) 04/04/2020 01:15:[address] [facility] ECG ROUTINE ECG W/LEAST 12 LDS W/I&R 01/22/2020 12:00: 00 AM EDT [facility] ([facility]) Arterial Pressure Waveform Analysis For Assessment Of Centra l Art 01/22/2020 12:00:00 AM EDT [facility] ([facility]) Arterial Pressure Waveform Analysis For Assessment Of Centra l Art 07/10/2019 12:00:00 AM EST [facility] Results ID Date Data Source [id number] 05/06/2020 09:23:[address] [facility] Patient Name: SOLITARIO ROWELL OB: 1945 Sex: F Pt Unit #: [id number] Location:[facility] Provider: Visit Date/Time: 05/06/20 Primary Insurance: MEDICARE BLUE PPO Secondary Insurance: Self Pay Intake Vital Signs 05/06/20 09:23 Current Height 4 ft 11.75 in Current Weight 133 lb Weight Measurement Method Standing Scale BMI 26.2 BP 112/64 Blood Pressure Location Lt brachial Position Sitting Respiration 18 Pulse 74 Pulse Strength Normal Pulse Source Pulse Oximeter Temp 96.9 F L Temp Source Temporal Artery Scan Pulse Oximetry (%) 97 Oxygen Delivery Method room air Intake Visit Reasons: Hypertension Nurse Note: Patient is here for a hypertension follow up. Traveling Missionary Required: No Accompanied by: Is patient in pain?: No Allergies No Known Drug Allergies Allergy (Unverified 06/27/19 11:55) Medications amlodipine 2.5 mg PO QDAY atorvastatin 40 mg PO QDAY calcium carbonate-vitamin D3 600 mg(1,500mg) -400 unit (Calcium 600 with Vitamin D3) PO DAILY carvedilol 3.125 mg PO BID esomeprazole magnesium 40 mg PO QDAY isosorbide mononitrate 10 mg PO BID lisinopril 20 mg PO QDAY meloxicam 7.5 mg PO QDAY mometasone 50 mcg/actuation 2 sprays intranasal QDAY multivitamin 1 tab PO QAM spironolactone 100 mg PO BID sucralfate 10 mL PO QID HIV Testing Offer - ages 13-64 Requirement for HIV testing offer been met?: Patient reports past refusal Coronavirus Screening Screening Have you traveled outside of [facility] or [facility] in the last 14 days.: No Has patient experienced coronavirus symptoms: No [facility] Social History Does the Patient have a Healthcare Proxy: No Does Patient have a DNR?: No Does Patient have a Living Will?: No HPI Additional HPI HPI Details: RECHECK. NEEDS MED REFILLS. STATES STOMACH IS FEELING MUCH BETTER. FEELS WELL Hypertension (Cardio) Most Recent Cardiac Tests: No Data to Display Review of Systems Const All systems reviewed are unremarkable except as noted in HPI and below Reports system reviewed and no additional complaints, except as documented Eyes Reports system reviewed and no additional complaints, except as documented ENT Reports system reviewed and no additional complaints, except as documented Card Reports system reviewed and no additional complaints, except as documented Resp Reports system reviewed and no additional complaints, except as documented GI Reports system reviewed and no additional complaints, except as documented Musc Reports system reviewed and no additional complaints, except as documented Skin/Breast Reports system reviewed and no additional complaints, except as documented Neuro Reports system reviewed and no additional complaints, except as documented Psych Reports system reviewed and no additional complaints, except as documented Endo Reports system reviewed and no additional complaints, except as documented Solo/Lymph Reports system reviewed and no additional complaints, except as documented Aller/Immun Reports system reviewed and no additional complaints, except as documented Exam Const General: cooperative, healthy appearing, no acute distress, well developed and well groomed Nutritional Appearance: well nourished Orientation: alert, awake and oriented x3 HENMT Head: normal to inspection, normocephalic, atraumatic and scalp tenderness Ears: hearing grossly normal bilaterally, external ears normal, TM's normal bilaterally and EAC's normal General nose exam: external nose normal, nares normal, septum normal and no nasal discharge Face and sinus: normal facial exam Throat: posterior oropharynx normal Neck Neck: normal visual inspection, full ROM and no lymphadenopathy Neck mass: No Thyroid: thyroid normal Carotids: normal carotid upstroke Resp Effort Inspection: normal respiratory effort Auscult ation: clear to auscultation bilaterally Percussion: percussion normal Cardio Rate: regular rate Rhythm: regular rhythm Heart Sounds: S1 normal and S2 normal Pulses: normal peripheral pulses GI Inspection: Yes normal to inspection Palpation: soft and no hepatosplenomegaly Percussion: normal to percussion Auscultation: normal bowel sounds General: No CVA tenderness Musc Cervical Spine: normal cervical lordosis and cervical ROM normal Thoracic/Lumbar Spine: thoracic and lumbar spine normal to inspection and thoraco-lumbar ROM normal Skin Lesions: no lesions Rashes: no rashes Hair: normal Nails: normal Neuro General: patient alert, patient awake, patient oriented x3, gait normal, moves all extremities and normal light touch, pain and propioception Cranial Nerves: CN's II-XII intact bilaterally Cognition: normal cognition Speech: speech normal Gait: normal gait Motor: muscle tone normal throughout and strength 5/5 throughout Sensory Exam: no sensory deficits noted Extrem General: normal to inspection and full ROM Psych Appearance: grossly normal and well kempt Mental Status: mental status grossly normal Speech and Movement: speech and movement normal Affect: normal affect Attitude: cooperative Thought Process: normal Thought Content: normal Insight: insight good Judgment: judgment good Assessment Plan Assessment Plan (1) HTN (hypertension), benign: Status: Acute Code(s): I10 - Essential (primary) hypertension SNOMED Code(s): 94796418 Category: Medical Plan - Mckenna Miles PAMPHLET DISTRIBUTOR: RTC 3 MONTHS HAD FLU SHOT AT PHARMACY Orders Other Medications: Refilled: spironolactone 100 mg PO BID 180 tabs 3RF sucralfate TAKE 1 HOUR BEFORE MEALS AT BEDTIME 10 mL PO QID 420 mL 5RF Electronically Signed By: <Electronically signed by Mckenna Miles NP> Date/Time Signed: 05/06/20 1006 Name Value Range Interpretation Code Description Data Joseline rce(s) Supporting Document(s) ID Date Data Source [id number] 04/04/2020 04:39:00 PM EDT [facility] [address] [place], [place] [id number] [phone] NAME SEX PT STATUS ACCOUNT NUMBER SOLITARIO ROWELL REG REF [id number] ORDERING PHYSICIAN LOCATION MEDICAL RECORD NO. Mceknna Miles MAMMO [id number] ATTENDING PHYSICIAN DATE OF DATE OF EXAM/TIME Mckenna Miles NP 1945 04/04/20 / 1340 TYPE / EXAM US Breast - Complete Bilat REASON FOR EXAM DENSE BREAST SCREENING BILATERAL ABVS 3D SCREENING ULTRASOUND COMPARISON: Screening mammogram from the same date FINDINGS: No disturbing-appearing cystic or solid mass identified. Mammogram demonstrates occasional benign type calcifications. IMPRESSION: No sonographic evidence of malignancy. OVERALL FINAL ASSESSMENT OF FINDINGS BI-RADS 2 - Benign findings. Reported By Bridger Cabello MD on 04/04/201638 Signed By Bridger Cabello MD on 04/04/20 163 Date Time CC: Bridger Cabello MD; Mckenna Miles Techn: FLORENTIN Trans Dt/Tm: Trans by: DT Prt Dt/Tm: : Total DLP = 0.00 mGy-cm : Total Radiation Dose = 0.0000 mSv Lifetime Dose: 0 mSv Name Value Range Interpretation Code Description Data Joseline rce(s) Supporting Document(s) ID Date Data Source [id number] 04/04/2020 04:21:00 PM EDT [facility] [address] [place], [place] [id number] [phone] NAME SEX PT STATUS ACCOUNT NUMBER SOLITARIO ROWELL REG REF [id number] ORDERING PHYSICIAN LOCATION MEDICAL RECORD NO. Mckenna PATEL Jc MAMMO [id number] ATTENDING PHYSICIAN DATE OF DATE OF EXAM/TIME Mckenna Miles PAMPHLET DISTRIBUTOR 1945 04/04/201314 TYPE / EXAM 3D DIG MAMMO SCREEN BILAT REASON FOR EXAM Screening for breast cancer LAST CLINICAL BREAST EXAM: 2018 FIVE YEAR RISK: 0.5% LIFETIME RISK: 1.4% FAMILY HISTORY OF BREAST CARCINOMA: None COMPARISON: March 23, 2019 and January 06, 2016 2D bilateral digital mammogram in the CC and MLO projections was performed with supplemental 3D tomosynthesis of both breasts. FINDINGS: Craniocaudad and oblique lateral views of the breasts were obtained. The breasts are heterogeneously dense, which may obscure small masses. Occasional benign type calcifications remain stable. There is no dominant mass, suspicious clustered microcalcification or architectural distortion. IMPRESSION: No mammographic evidence of malignancy. Yearly screening recommended. OVERALL FINAL ASSESSMENT OF FINDINGS BI-RADS 2 - Benign findings. OVERALL FINAL ASSESSMENT OF THE BREAST COMPOSITION Breast Density Classification: C Description: The breasts are heterogeneously dense, which may obscure small masses. This mammogram was read with the assistance of M-Vu, an FDA-approved computer-aided detection system for mammography. Reported By Bridger Cabello MD on 04/04/20 1621 Signed By Bridger Cabello MD on 04/04/20 1624 Date Time CC: Bridger Cabello MD; Mckenna PATEL Jc Techn: BAKLE Trans Dt/Tm: Trans by: DT Prt Dt/Tm: : Total DLP = 0.00 mGy-cm : Total Radiation Dose = 0.0000 mSv Lifetime Dose: 0 mSv Name Value Range Interpretation Code Description Data Joseline rce(s) Supporting Document(s) ID Date Data Source [id number] 03/06/2020 02:38:[address] [facility] Patient Name: SOLITARIO ROWELL : 1945 Sex: F Pt Unit #: [id number] Location:[facility] Provider: Visit Date/Time: 03/06/20 Primary Insurance: MEDICARE BLUE PPO Secondary Insurance: Self Pay Intake Vital Signs 03/06/20 14:38 Current Height 4 ft 11.75 in Current Weight 129 lb Weight Measurement Method Stated by Patient BMI 25.4 BP 126/70 Blood Pressure Location Lt brachial Position Sitting Respiration 18 Pulse 63 Pulse Strength Normal Pulse Source Pulse Oximeter Temp 96.8 F L Temp Source Tympanic Pulse Oximetry (%) 98 Oxygen Delivery Method room air Intake Visit Reasons: Gastroesophageal reflux disease (GERD) Nurse Note: Patient is here for issues with GERD. She had some medication changes. Her Omeprazole got changed to Esomeprazole Magnesium 40mg QD but, her DrAileen told her to take two a day until she started feeling better. Traveling Missionary Required: No Accompanied by: Is patient in pain?: Yes Allergies No Known Drug Allergies Allergy (Unverified 06/27/19 11:55) HIV Testing Offer - ages 13-64 Requirement for HIV testing offer been met?: Patient reports past refusal Coronavirus Screening Screening Have you traveled outside of [facility] or [facility] in the last 14 days.: No Has patient experienced coronavirus symptoms: No [facility] Social History Does the Patient have a Healthcare Proxy: No Does Patient have a DNR?: No Does Patient have a Living Will?: No HPI Additional HPI HPI Details: RECHECK. HAD UPPER GI BY [facility] GASTRO. RECOMMENDED SUCRALFATE QID. WOULD LIKE REFILLED COMPUTER SYSTEM DOWN AT [facility]. FEELS WELL GERD History of Present Illness Current symptoms: Reports heartburn Review of Systems Const All systems reviewed are unremarkable except as noted in HPI and below Reports system reviewed and no additional complaints, except as documented Eyes Reports system reviewed and no additional complaints, except as documented ENT Reports system reviewed and no additional complaints, except as documented Card Reports system reviewed and no additional complaints, except as documented Resp Reports system reviewed and no additional complaints, except as documented GI Reports heartburn Genitourinary: Reports system reviewed and no additional complaints, except as documented Musc Reports system reviewed and no additional complaints, except as documented Skin/Breast Reports system reviewed and no additional complaints, except as documented Neuro Reports system reviewed and no additional complaints, except as documented Psych Reports system reviewed and no additional complaints, except as documented Endo Reports system reviewed and no additional complaints, except as documented Solo/Lymph Reports system reviewed and no additional complaints, except as documented Aller/Immun Reports system reviewed and no additional complaints, except as documented Exam Const General: cooperative, healthy appearing, no acute distress, well developed and well groomed Nutritional Appearance: well nourished Orientation: alert, awake and oriented x3 HENMT Head: normal to inspection Ears: hearing grossly normal bilaterally, external ears normal, TM's normal bilaterally, EAC's normal and no periauricular adenopathy General nose exam: external nose normal, nares normal, no nasal polyps, septum normal and no nasal discharge Face and sinus: normal facial exam and sinuses nontender Mouth: oral mucosae normal, lip normal, tongue normal, oropharynx normal and moist mucous membranes Throat: posterior oropharynx normal Eyes General: appearance normal, both eyes and all related structures Periorbital: periorbital findings normal Eyelids: eyelids normal Conjunctivae: conjunctivae normal Sclera: sclerae normal Pupils: PERRL EOM: EOM intact bilaterally Direct ophthalmoscopy: normal light reflex Neck Neck: normal visual inspection and full ROM Neck mass: No Thyroid: thyroid normal Carotids: normal carotid upstroke Resp Effort Inspection: normal respiratory effort Auscultation: clear to auscultation bilaterally Percussion: percussion normal Cardio Jugular venous pressure: no JVD Palpation: normal PMI Rate: regular rate Rhythm: regular rhythm Heart Sounds: S1 normal and S2 normal Pulses: normal peripheral pulses GI Inspection: Yes normal to inspection Palpation: soft and no hepatosplenomegaly Percussion: normal to percussion Auscultation: normal bowel sounds General: No CVA tenderness Musc Cervical Spine: normal cervical lordosis and cervical ROM normal Thoracic/Lumbar Spine: thoracic and lumbar spine normal to inspection and thoraco-lumbar ROM normal Pelvis: no pain with anterior-posterior compression and no pain with lateral compression Skin Lesions: no lesions Rashes: no rashes Hair: normal Nails: normal Neuro General: patient alert, patient awake, patient oriented x3, gait normal, moves all extremities and normal light touch, pain and propioception Cranial Nerves: CN's II-XII intact bilaterally Cognition: normal cognition Speech: speech normal Gait: normal gait Motor: muscle tone normal throughout and strength 5/5 throughout Sensory Exam: no sensory deficits noted Extrem General: normal to inspection, full ROM and capillary refill normal Psych Appearance: grossly normal and well kempt Mental Status: mental status grossly normal Speech and Movement: speech and movement normal Affect: normal affect Attitude: cooperative Thought Process: normal Thought Content: normal Insight: insight good Judgment: judgment good Assessment Plan Assessment Plan (1) Gastroesophageal reflux disease: Code(s): K21.9 - Gastro-esophageal reflux disease without esophagitis Qualifiers: Esophagitis presence: esophagitis presence not specified Qualified Code(s): K21.9 - Gastro-esophageal reflux disease without esophagitis (2) HTN (hypertension), benign: Status: Acute Code(s): I10 - Essential (primary) hypertension SNOMED Code(s): 15623340 Category: Medical Orders Other Medications: New: sucralfate TAKE 1 HOUR BEFORE MEALS AT BEDTIME 10 mL PO QID 420 mL 5RF Other Orders: Orders: 3D DIG MAMMO SCREEN BILAT Today Z12.31 Electronically Signed By: <Electronically signed by Mckenna Miles NP> Date/Time Signed: 03/06/20 1529 Name Value Range Interpretation Code Description Data Joseline rce(s) Supporting Document(s) ID Date Data Source [id number] 02/21/2020 08:36:00 AM EDT [facility] Name Value Range Interpretation Code Description Data Joseline rce(s) Supporting Document(s) Surgical pathology study Laboratory test result [facility], ) FINAL DIAGNOSIS Stomach, prepyloric area, biopsy: Gastric mucosa with minimal nonspecific chronic inflammation. No evidence for H. pylori is noted. 02/22/2020 - 1350 CLINICAL DIAGNOSIS Reflux, indigestion 02/21/2020 - 1425 GROSS DIAGNOSIS Received in formalin labeled "prepyloric biopsy" is a 0.3 x 0.3 x 0.2 cm. aggregate of 1 or 2 mucosal fragments. All in one. - 02/21/20201425 Signed Ravi House MD 02/22/2020 1351 ID Date Data Source [id number] 02/16/2020 12:00:00 AM EDT [facility] Name Value Range Interpretation Code Description Data Joseline rce(s) Supporting Document(s) SARS coronavirus 2 RNA [facility] This lab was ordered by [facility] and reported by [facility]. ID Date Data Source [id number] 01/30/2020 10:56:[address] [facility] Patient Name: SOLITARIO ROWELL : 1945 Sex: F Pt Unit #: [id number] Location:[facility] Provider: Visit Date/Time: 01/30/20 Primary Insurance: MEDICARE BLUE O Secondary Insurance: Self Pay Intake Vital Signs 01/30/20 10:56 Current Height 4 ft 11.75 in Current Weight 128 lb Weight Measurement Method Standing Scale BMI 25.2 BP 130/60 Blood Pressure Location Lt brachial Position Sitting Respiration 18 Pulse 58 L Pulse Strength Normal Pulse Source Pulse Oximeter Pulse Oximetry (%) 98 Oxygen Delivery Method room air Intake-Medicare Annual Visit Reasons: Medicare Annual Wellness subsequent Nurse Note: pt is here today for medicare wellness exam Is patient in pain?: No Allergies No Known Drug Allergies Allergy (Unverified 06/27/19 11:55) Feel stressed/tense/nervous/anxious/difficulty sleeping: not at all Medications amlodipine 2.5 mg PO QDAY atorvastatin 40 mg PO QDAY calcium carbonate-vitamin D3 600 mg(1,500mg) -400 unit (Calcium 600 with Vitamin D3) tabs PO DAILY carvedilol 3.125 mg PO BID isosorbide mononitrate 10 mg PO BID lisinopril 20 mg PO QDAY meloxicam 7.5 mg PO QDAY mometasone 50 mcg/actuation 2 sprays intranasal QDAY multivitamin 1 tab PO QAM omeprazole 20 mg PO BID spironolactone 100 mg PO BID Fall Risk History of falls: No Ambulatory Aid:: None Gait/Transferring:: Normal Medications:: Antihypertensives Requirement for HIV testing offer been met?: Patient reports past refusal Hep C Testing Offered: Yes Hep C Requirement met: Refuses today Coronavirus Screening Screening Have you traveled outside of [facility] or [facility] in the last 14 days.: No Has patient experienced coronavirus symptoms: No PFSH Social History Does the Patient have a Healthcare Proxy: No Does Patient have a DNR?: No Does Patient have a Living Will?: No Medicare Annual Wellness Type Of Examation Type of Exam: Subsequent Wellness Exam EKG EKG Performed: No Medication list Medications amlodipine 2.5 mg PO QDAY atorvastatin 40 mg PO QDAY calcium carbonate-vitamin D3 600 mg(1,500mg) -400 unit (Calcium 600 with Vitamin D3) tabs PO DAILY carvedilol 3.125 mg PO BID isosorbide mononitrate 10 mg PO BID lisinopril 20 mg PO QDAY meloxicam 7.5 mg PO QDAY mometasone 50 mcg/actuation 2 sprays intranasal QDAY multivitamin 1 tab PO QAM omeprazole 20 mg PO BID spironolactone 100 mg PO BID Allergies Allergies No Known Drug Allergies Allergy (Unverified 06/27/19 11:55) Current Diet Current diet: regular PHQ-2/9 Over the last 2 weeks, how often have you been bothered by any of the following problems? 1. Little interest or pleasure in doing thin gs: not at all 2. Feeling down, depressed, or hopeless: not at all Total score: 0 Functional Assessment Bathing: Independent Dressing: Independent Toileting: Independent Transferring: Independent Continence: Independent Feeding: Independent Total Score: 6 Hearing Hearing Left Ear: Normal Hearing Right Ear: Normal Cognitive Evaluation Mood: grossly normal Affect: Normal Judgement: normal Needs caregiver for assistance: No HPI Additional HPI HPI Details: HERE FOR MEDICARE ANNUAL WELLNESS. FEELS WELL SAW CARDIOLOGY. AMLODIPINE AND CARVEDILOL DECREASED BP WAS A LITTLE LOW. Review of Systems Const All systems reviewed are unremarkable except as noted in HPI and below Reports system reviewed and no additional complaints, except as documented Eyes Reports system reviewed and no additional complaints, except as documented ENT Reports system reviewed and no additional complaints, except as documented Card Reports system reviewed and no additional complaints, ex cept as documented Resp Reports system reviewed and no additional complaints, except as documented GI Reports system reviewed and no additional complaints, except as documented Genitourinary: Reports system reviewed and no additional complaints, except as documented Musc Reports system reviewed and no additional complaints, except as documented Skin/Breast Reports system reviewed and no additional complaints, except as documented Neuro Reports system reviewed and no additional complaints, except as documented Psych Reports system reviewed and no additional complaints, except as documented Endo Reports system reviewed and no additional complaints, except as documented Solo/Lymph Reports system reviewed and no additional complaints, except as documented Aller/Immun Reports system reviewed and no additional complaints, except as documented Exam Const General: cooperative and comfortable Nutritional Appearance: average body habitus Orientation: alert and oriented x3 HENMT Head: normal to inspection Ears: hearing grossly normal bilaterally Face and sinus: normal facial exam Throat: posterior oropharynx normal Neck Neck: normal visual inspection Neck mass: No Thyroid: thyroid normal Carotids: normal carotid upstroke Lymphatic: no lymphadenopathy noted Resp Effort Inspection: normal respiratory effort Auscultation: clear to auscultation bilaterally Cardio Rate: regular rate Rhythm: regular rhythm GI Inspection: Yes normal to inspection Palpation: soft Percussion: normal to percussion Auscultation: normal bowel sounds General: No CVA tenderness Musc Cervical Spine: normal cervical lordosis Thoracic/Lumbar Spine: thoracic and lumbar spine normal to inspection Skin Lesions: no lesions Rashes: no rashes Neuro General: patient alert and patient oriented x3 Cranial Nerves: CN's II-XII intact bilaterally Extrem General: normal to inspection Psych Appearance: grossly normal Mental Status: mental status grossly normal Speech and Movement: speech and movement normal Mood: congruent mood Affect: normal affect Attitude: cooperative Thought Process: normal Thought Content: normal Insight: insight good Judgment: judgment good Assessment Plan Assessment Plan (1) Medicare annual wellness visit, subsequent: Code(s): Z00.00 - Encounter for general adult medical examination without abnormal findings Plan - Mckenna Miles [employer]: LABS REVEIWED. RTC 3 MONTHS (2) HTN (hypertension), benign: Status: Acute Code(s): I10 - Essential (primary) hypertension SNOMED Code(s): 72048245 Category: Medical (3) Arthralgia of hip: Status: Acute Code(s): M25.559 - Pain in unspecified hip SNOMED Code(s): 18247175 Category: Medical Orders Other Medications: Refilled: lisinopril 20 mg PO QDAY 90 tabs 3RF atorvastatin 40 mg PO QDAY 90 tabs 3RF meloxicam 7.5 mg PO QDAY 90 tabs 3RF omeprazole 20 mg PO BID 180 tabs 3RF spironolactone 100 mg PO BID 180 tabs 3RF Electronically Signed By: <Electronically signed by Mckenna Miles NP> Date/Time Signed: 01/30/20 1121 Name Value Range Interpretation Code Description Data Joseline rce(s) Supporting Document(s) ID Date Data Source [id number] 12/07/2019 08:39:[address] [facility] Patient Name: SOLITARIO ROWELL : 1945 Sex: F Pt Unit #: [id number] Location:[facility] Provider: Visit Date/Time: 12/07/19 Primary Insurance: MEDICARE BLUE PPO Secondary Insurance: Self Pay Intake Vital Signs 12/07/19 08:39 Current Height 5 ft 1 in Current Weight 132 lb Weight Measurement Method Standing Scale BMI 24.9 BP 120/60 Blood Pressure Location Lt brachial Position Sitting Respiration 18 Pulse 62 Pulse Strength Normal Pulse Source Pulse Oximeter Pulse Oximetry (%) 99 Oxygen Delivery Method room air Intake Visit Reasons: Hypertension Nurse Note: pt is here today for hypertension pt has sore lymph node on right side of neck about a week Is patient in pain?: Yes (right side of neck ) Pain scale (1-10): 4 Allergies No Known Drug Allergies Allergy (Unverified 06/27/19 11:55) Medications amlodipine 5 mg PO QDAY atenolol 25 mg PO QDAY atorvastatin 40 mg PO QDAY calcium carbonate-vitamin D3 600 mg(1,500mg) -400 unit (Calcium 600 with Vitamin D3) PO DAILY isosorbide mononitrate 10 mg PO BID lisinopril 20 mg PO QDAY meloxicam 7.5 mg PO QDAY mometasone 50 mcg/actuation 2 sprays intranasal QDAY multivitamin 1 tab PO QAM omeprazole 20 mg PO BID spironolactone 100 mg PO BID Fall Risk History of falls: No Ambulatory Aid:: None Gait/Transferring:: Normal Medications:: Antihypertensives Coronavirus Screening Screening Have you traveled outside of [facility] or [facility] in the last 14 days.: No Has patient experienced coronavirus symptoms: No PFSH Social History Does the Patient have a Healthcare Proxy: No Does Patient have a DNR?: No Does Patient have a Living Will?: No HPI Hypertension (Cardio) Most Recent Cardiac Tests: No Data to Display Exam Const General: cooperative and healthy appearing Nutritional Appearance: average body habitus and well nourished Orientation: alert and oriented x3 HENMT Head: normal to inspection Ears: hearing grossly normal bilaterally, TM normal on the right and TM normal on the left Throat: posterior oropharynx normal Eyes General: appearance normal, both eyes and all related structures Visual [place]: normal visual [place] by confrontation Periorbital: periorbital findings normal Eyelids: eyelids normal Conjunctivae: conjunctivae normal Sclera: sclerae normal Cornea: corneas normal Pupils: PERRL EOM: EOM intact bilaterally Neck Neck: normal visual inspection Neck mass: No Thyroid: thyroid normal Lymphatic: no lymphadenopathy noted Resp Effort Inspection: normal respiratory effort Auscultation: clear to auscultation bilaterally Cardio Rate: regular rate Rhythm: regular rhythm Heart Sounds: S1 normal GI Inspection: Yes normal to inspection Palpation: soft Percussion: normal to percussion Auscultation: normal bowel sounds General: No CVA tenderness Musc Cervical Spine: normal cervical lordosis Thoracic/Lumbar Spine: thoracic and lumbar spine normal to inspection Skin Lesions: no lesions Rashes: no rashes Neuro General: patient alert and patient oriented x3 Cranial Nerves: CN's II-XII intact bilaterally Extrem General: normal to inspection Psych Appearance: grossly normal Mental Status: mental status grossly normal Speech and Movement: speech and movement normal Mood: congruent mood Affect: normal affect Attitude: cooperative Thought Process: normal Thought Content: normal Insight: insight good Judgment: judgment good Assessment Plan Assessment Plan (1) Hypertension: Code(s): I10 - Essential (primary) hypertension Orders Other Medications: New: isosorbide mononitrate take 1/2 tab in am and 1/2 tab in pm 10 mg PO BID 90 tabs 3RF meloxicam 7.5 mg PO QDAY 90 tabs 3RF Refilled: amlodipine 5 mg PO QDAY 90 tabs 3RF atenolol 25 mg PO QDAY 90 tabs 3RF atorvastatin 40 mg PO QDAY 90 tabs 3RF lisinopril 20 mg PO QDAY 90 tabs 3RF omeprazole 20 mg PO BID 180 tabs 3RF spironolactone 100 mg PO BID 90 tabs 3RF mometasone 50 mcg/actuation 2 sprays intranasal QDAY 17 grams 3RF Electronically Signed By: <Electronically signed by Mckenna Miles > Date/Time Signed: 12/07/19903 Name Value Range Interpretation Code Description Data Joseline rce(s) Supporting Document(s) ID Date Data Source [id number] 12/05/2019 01:01:00 PM EDT [facility] Name Value Range Interpretation Code Description Data Joseline rce(s) Supporting Document(s) Platelets 326 [facility] Red Blood Count 3.37 [facility] White Blood Count 4.4 [facility]) Hematocrit 33.1 [facility] ([facility]) Hemoglobin 11.3 [facility] ([facility]) ID Date Data Source [id number] 12/05/2019 01:01:00 PM EDT [facility] Name Value Range Interpretation Code Description Data Joseline rce(s) Supporting Document(s) HDL 51 [facility] Cholesterol 155 [facility]) Triglycerides 100 [facility] ([facility]) Chol/HDL Ratio 3.0 [facility] ([facility] Cholesterol in LDL [Mass/volume] in Serum or Plasma by calculation 89 [facility]) ID Date Data Source [id number] 12/05/2019 01:01:00 PM EDT [facility] Name Value Range Interpretation Code Description Data Joseline rce(s) Supporting Document(s) Albumin [Mass/volume] in Serum or Plasma 4.5 [facility] ([facility]) Alanine aminotransferase [Enzymatic activity/volume] in Serum or Pl asma 27 [facility] ([facility]) Carbon dioxide, total [Moles/volume] in Serum or Plasma 23 [facility]) Calcium [Mass/volume] in Serum or Plasma 9.4 [facility] ([facility]) Protein [Mass/volume] in Serum or Plasma 7.0 [facility] ([facility]) Chloride [Moles/volume] in Serum or Plasma 107 [facility]) Potassium [Moles/volume] in Serum or Plasma 5.0 [facility] [place] Alkaline phosphatase [Enzymatic activity/volume] in Serum or Plasma 5 5 [facility] Aspartate aminotransferase [Enzymatic activity/volume] in Serum or Plasma 25 [facility] ([facility] [place] Urea nitrogen [Mass/volume] in Serum or Plasma 17 [facility] [place] Sodium 140 [facility] [place] [place] Creatinine For GFR 1.1 [facility] ([facility] [place] Glucose 112 [facility] [place] [place] ID Date Data Source [id number] 12/05/2019 08:58:00 AM EDT [facility] Name Value Range Interpretation Code Description Data Joseline rce(s) Supporting Document(s) COMPREHENSIVE METABOLIC PANEL [facility] COMPREHENSIVE METABOLIC PANEL Sodium [Moles/volume] in Serum or Plasma 140 mEq/L 134 - 153 [facility] Potassium [Moles/volume] in Serum or Plasma 5.0 mEq/L 3.6 - 5.0 [facility] Chloride [Moles/volume] in Serum or Plasma 107 mEq/L 98 - 107 [facility] Carbon dioxide, total [Moles/volume] in Serum or Plasma 23 MEQ/L 22 - 30 [facility] Glucose [Mass/volume] in Serum or Plasma 112 MG/DL 65 - 110 H [facility] BUN 17 MG/DL 7 - [facility] Creatinine [Mass/volume] in Serum or Plasma 1.1 MG/DL 0.7 - 1.5 [facility] BUN/CREAT 15 8 - 27 [facility] Protein [Mass/volume] in Serum or Plasma 7.0 G/DL 6.3 - 8.2 [facility] Albumin [Mass/volume] in Serum or Plasma 4.5 G/DL 3.9 - 5.0 [facility] Globulin [Mass/volume] in Serum by calculation 2.5 GM/DL 2.4 - 3.2 [facility] A/G RATIO 1.8 0.8 - 2.0 [facility] Calcium [Mass/volume] in Serum or Plasma 9.4 MG/DL 8.4 - 10.2 [facility] Bilirubin.total [Mass/volume] in Serum or Plasma <0.7 MG/DL 0.2 - 1.3 [facility] Alkaline phosphatase [Enzymatic activity/volume] in Serum or Plasma 55 U/L 38 - 126 [facility] Aspartate aminotransferase [Enzymatic activity/volume] in Serum or Plasma 25 U/L 5 - 40 [facility] Alanine aminotransferase [Enzymatic activity/volume] in Seru m or Plasma 27 U/L 7 - 56 [facility] Anion gap 3 in Serum or Plasma 10.0 mmol/L 8.0 - 16.0 [facility] AGE 73 yrs [facility] NON-AA GFR 52 mL/min [facility] AFR AMER GFR >60 [facility] pital Male GFR In terprentation 20-49 yrs >60 mL/min Normal 50-59 yrs >56 mL/min Normal 60-69 yrs >49 mL/min Normal 70-79yrs >42 mL/min Normal 80 and above >35 mL/min Normal Female GFR Interpretation 20-39 yrs >60 mL/min Normal 40-49 yrs >58 mL/min Normal 50-59 yrs >51 mL/min Normal 60-69 yrs >45 mL/min Normal 70-79 yrs >39 mL/min Normal 80 and above >32 mL/min Normal ID Date Data Source [id number] 12/05/2019 08:58:00 AM EDT [facility] Name Value Range Interpretation Code Description Data Joseline rce(s) Supporting Document(s) CVE PANEL [facility] LIPID PANEL Cholesterol [Mass/volume] in Serum or Plasma 155 MG/DL 131 - 200 [facility] Deprecated Triglyceride [Mass/volume] in Serum or Plasma 100 MG/DL 3 5 - 160 [facility] HDL 51 MG/DL 29 - 86 [facility] Cholesterol in LDL/Cholesterol in HDL [Mass Ratio] in Serum or Plasma 89 mg/dL 65 - 175 [facility] Cholesterol.total/Cholesterol in HDL [Mass Ratio] in Serum o r Plasma 3.0 3.2 - 4.4 L [facility] LDL/HDL 1.75 1.47 - 3.22 [facility] CVE RISK CHOL/HDL LDL/HDLMEN: 1/2 AVERAGE 3.43 1.00 AVERAGE 4.97 3.55 2X AVERAGE 9.55 6.25 3X AVERAGE 23.99 7.99WOMEN: 1/2 AVERAGE 3.27 1.47 AVERAGE 4.44 3.22 2X AVERAGE 7.05 5.03 3X AVERAGE 11.04 6.14 ID Date Data Source [id number] 12/05/2019 08:42:00 AM EDT [facility] Name Value Range Interpretation Code Description Data Joseline rce(s) Supporting Document(s) CBC W/AUTOMATED DIFF [facility] COMPLETE BLOOD COUNT Leukocytes [#/volume] in Blood by Automated count 4.4 10^3/uL 4.2 - 1 1.0 [facility] Erythrocytes [#/volume] in Blood by Automated count 3.37 10^6/uL 4. 20 - 5.40 L [facility] Hemoglobin [Mass/volume] in Blood 11.3 g/dL 12.0 - 16.0 L [facility] Hematocrit [Volume Fraction] of Blood by Automated count 33.1 % 3 7.0 - 47.0 L [facility] Erythrocyte mean corpuscular volume [Entitic volume] by Auto mated count 98.2 fL 81.0 - 101 [facility] Erythrocyte mean corpuscular hemoglobin [Entitic mass] by Automated count 33.5 pg 27.0 - 34.0 [facility] Erythrocyte mean corpuscular hemoglobin concentration [Mass/volume] by Automated count 34.1 g/dL 31.0 - 36.0 [facility] Erythrocyte distribution width [Ratio] by Automated count 11.5 % 11.5 - 14.5 [facility] Platelets [#/volume] in Blood by Automated count 326 10^3/uL 150 - 45 0 [facility] Platelet mean volume [Entitic volume] in Blood by Automated count 10.3 fL 7.4 - 10.4 [facility] Neutrophils/100 leukocytes in Blood by Automated count 52.8 % 37. 0 - 80.0 [facility] Lymphocytes/100 leukocytes in Blood by Manual count 34.5 % 25.0 - 40.0 [facility] Monocytes/100 leukocytes in Blood by Automated count 8.4 % 3.0 - 8.0 H [facility] Eosinophils/100 leukocytes in Blood by Automated count 3.0 % 0.0 - 7.0 [facility] Basophils/100 leukocytes in Blood by Automated count 1.1 % 0.0 - 2.5 [facility] %IG 0.2 % 0.0 - 0.0 H [facility] %NRBC 0.0 % 0.0 - 0.0 [facility] Neutrophils [#/volume] in Blood by Automated count 2.31 10^3/uL 2.00 - 6.90 [facility] Lymphocytes [#/volume] in Blood by Automated count 1.51 10^3/uL 0.60 - 3.40 [facility] Monocytes [#/volume] in Blood by Automated count 0.37 10^3/uL 0.00 - 0.90 [facility] Eosinophils [#/volume] in Blood by Automated count 0.13 10^3/uL 0.00 - 0.70 [facility] Basophils [#/volume] in Blood by Automated count 0.05 10^3/uL 0.00 - 0.20 [facility] #IG 0.01 10^3/uL 0.00 - 0.10 [facility] #NRBC 0.00 10^3/uL 0.00 - 0.00 [facility] MANUAL DIFF NOT INDICATED [facility] RBC MORPH NOT INDICATED [facility] spital ID Date Data Source [id number] 06/27/2019 11:52:00 AM [facility] Patient Name: SOLITARIO ROWELL : 1945 Sex: F Pt Unit #: [id number] Location:[facility] Provider: Visit Date/Time: 06/27/19 Primary Insurance: MEDICARE BLUE O Secondary Insurance: Self Pay Intake Vital Signs 06/27/19 11:52 Current Height 5 ft 1 in Current Weight 133 lb 0.2 oz BMI 25.1 BP 120/60 Blood Pressure Location Lt brachial Position Sitting Respiration 18 Pulse 60 Pulse Strength Normal Pulse Source Pulse Oximeter Temp 98 F Temp Source Oral Pulse Oximetry (%) 98 Oxygen Delivery Method room air Intake Visit Reasons: Hypertension Follow-up Nurse Note: pt is here today as new pt to [facility] but followed mckenna miles from [facility] office Is patient in pain?: No Allergies No Known Drug Allergies Allergy (Unverified 06/27/19 11:55) Medications amlodipine 5 mg PO QDAY atenolol 25 mg PO QDAY atorvastatin 40 mg PO QDAY calcium carbonate- vitamin D3 600 mg(1,500mg) -400 unit (Calcium 600 with Vitamin D3) PO DAILY isosorbide mononitrate 20 mg PO BID lisinopril 20 mg PO QDAY meloxicam 7.5 mg PO QDAY mometasone 50 mcg/actuation 2 sprays intranasal QDAY multivitamin 1 tab PO QAM omeprazole 20 mg PO BID spironolactone 100 mg PO BID Fall Risk History of falls: No Ambulatory Aid:: None Gait/Transferring:: Normal Medications:: Antihypertensives PHQ-2/9 Over the last 2 weeks, how often have you been bothered by any of the following problems? 1. Little interest or pleasure in doing things: not at all 2. Feeling down, depressed, or hopeless: not at all Total score: 0 HPI Hypertension Followup (Card) * HERE TO ESTABLISH. RECHECK BP Type of visit: follow-up Onset: >1 year Current neurological symptoms: Denies headache(s) Orthostatic: No Current cardiovascular symptom: denies chest pain, dyspnea, dyspnea on exertion or fatigue Current renal disease symptoms: denies fatigue, nausea or vomiting Most Recent Cardiac Tests: No Data to Display Monitoring BP monitoring: home monitoring BP comorbidities: less than 130/80 BP control: satisfactory BP target: less than 130/80 Diet type: low sodium Medication compliance: good Review of Systems Const All systems reviewed are unremarkable except as noted in HPI and below Denies fatigue and Denies headache(s) Eyes Reports system reviewed and no additional complaints, except as documented ENT Reports system reviewed and no additional complaints, except as documented and Denies headache(s) Card Reports system reviewed and no additional complaints, except as documented, Denies chest pain, Denies dyspnea and Denies dyspnea on exertion Resp Reports system reviewed and no additional complaints, except as documented, Denies dyspnea and Denies dyspnea on exertion GI Reports system reviewed and no additional complaints, except as documented, Denies nausea and Deniesvomiting Reports system reviewed and no additional complaints, except as documented Musc Reports system reviewed and no additional complaints, except as documented Skin/Breast Reports system reviewed and no additional complaints, except as documented Neuro Reports system reviewed and no additional complaints, except as documented and Denies headache(s) Psych Reports system reviewed and no additional complaints, except as documented Endo Reports system reviewed and no additional complaints, except as documented and Denies fatigue Solo/Lymph Reports system reviewed and no additional complaints, except as documented Aller/Immun Reports system reviewed and no additional complaints, except as documented Exam Const General: cooperative and comfortable Nutritional Appearance: average body habitus Orientation: alert and oriented x3 HENMT Head: normal to inspection Throat: posterior oropharynx normal Neck Neck: normal visual inspection Neck mass: No Thyroid: thyroid normal Lymphatic: no lymphadenopathy noted Chest Chest: normal inspection of the chest Resp Effort Inspection: normal respiratory effort Auscultation: clear to auscultation bilaterally Percussion: percussion normal Cardio Rate: regular rate Rhythm: regular rhythm GI Percussion: normal to percussion Auscultation: normal bowel sounds General: CVA tenderness Musc Cervical Spine: normal cervical lordosis Thoracic/Lumbar Spine: thoracic and lumbar spine normal to inspection Skin Lesions: no lesions Rashes: no rashes Neuro General: alert and oriented x3 Cranial Nerves: CN's II-XII intact bilaterally Extrem General: normal to inspection Psych Appearance: grossly normal Mental Status: mental status grossly normal Mood: congruent mood Affect: normal affect Attitude: cooperative Thought Content: normal Insight: insight good Judgment: judgment good Assessment Plan Assessment Plan (1) Hypertension: Code(s): I10 - Essential (primary) hypertension Plan - Mckenna Jc: Patient education: Diet: Encouraged to adjust caloric intake to maintain ideal body weight, to reduce intake of dietarysaturated fat and cholesterol, to limit sodium intake by avoiding high sodium foods and not adding table salt, and to maintain adequate dietary potassium, preferably from fresh fruits and vegetables. Exercise: Stressed the importance of regular exercise 30-45 minutes most days of the week. Follow-up: In 3-6 months. Orders Other Medications: New: mometasone 50 mcg/actuation 2 sprays intranasal QDAY 17 grams 1RF spironolactone 100 mg PO BID 90 tabs 1RF omeprazole 20 mg PO BID 180 tabs 1RF atorvastatin 40 mg PO QDAY 90 tabs 1RF Electronically Signed By: <Electronically signed by Mckenna Miles > Date/Time Signed: 06/27/19 1243 Name Value Range Interpretation Code Description Data Joseline rce(s) Supporting Document(s) Procedure Social History Code Duration Value Status Description Data Source(s ) Smoking 01/22/2020 12:00:00 AM EDT Patient is a former smoker completed Patient is a former smoker [facility]) Vital Signs ID Date Data Source UNK Name Value Range Interpretation Code Description Data Source(s) Body weight 59.989 kg 59.989 kg [facility]) Body mass index (BMI) [Ratio] 25.0 kg/m2 25.0 k g/m2 [facility] ([facility]) Body weight 132.25 [lb_av] 132.25 [lb_av] [facility] ([facility]) Body height 61 [in_i] 61 [in_i] [facility] ([facility]) 5'1" Diastolic blood pressure 62 mm[Hg] 62 mm[Hg] [facility] ([facility]) Systolic blood pressure 128 mm[Hg] 128 mm[Hg] [facility] ([facility]) Diastolic blood pressure--sitting 45 mm[Hg] 45 mm[Hg] [facility] ([facility]) CBP adult cuff, Ra Systolic blood pressure--sitting 116 mm[Hg] 116 mm[Hg] [facility] ([facility]) CBP adult cuff, Ra Heart rate 48 /min 48 /min [facility] Body mass index (BMI) [Ratio] 24.4 kg/m2 24.4 k g/m2 [facility] ([facility]) Body height 61 [in_i] 61 [in_i] [facility] 5'1" Body weight 129.00 [lb_av] 129.00 [lb_av] [facility] ([facility]) Diastolic blood pressure--sitting 52 mm[Hg] 52 mm[Hg] [facility] ([facility]) CBP adult cuff, Ra Systolic blood pressure--sitting 128 mm[Hg] 128 mm[Hg] [facility] ([facility]) CBP adult cuff, Ra Heart rate 53 /min 53 /min [facility] Body mass index (BMI) [Ratio] 24.7 kg/m2 24.7 k g/m2 [facility] ([facility]) Body height 61 [in_i] 61 [in_i] [facility] 5'1" Body weight 131.00 [lb_av] 131.00 [lb_av] [facility] ([facility]) Patient Treatment Plan of Care Planned Activity Planned Date Details Description Data Source (s) Atenolol 25 MG Oral Tablet 03/21/2019 12:00:00 AM EDT [place] [facility]) atorvastatin 40 MG Oral Tablet 03/21/2019 12:00:00 AM EDT [place] [facility]) Lisinopril 5 MG Oral Tablet 03/21/2019 12:00:00 AM EDT [place] [facility]) meloxicam 7.5 MG Oral Tablet 03/21/2019 12:00:00 AM EDT [place] [facility]) Nasonex 50MCG/ACT Nasal Suspension 03/21/2019 12:00:00 AM EDT [place] [facility]) Omeprazole 20 MG Delayed Release Oral Capsule 03/21/2019 12:00:00 A M EDT [place] ([facility]) Amlodipine 5 MG Oral Tablet 03/21/2019 12:00:00 AM EDT [place] [facility]) Spironolactone 100 MG Oral Tablet 03/21/2019 12:00:00 AM EDT [place] [facility])
[2020-08-14] MEDS ORDERED: SUCR1ORA2 (20:52)
[2020-08-14 21:37] LABS: BASO # 0.1 10^3/uL (0.0-0.2); BASO % 0.9 % (0.0-1.0); EOS # 0.1 10^3/uL (0.0-0.5); EOS % 1.8 % (0.0-3.0); HEMATOCRIT 33.7 % (36.0-47.0); HEMOGLOBIN 11.2 g/dl (12.0-15.5); LYMPH # 1.9 10^3/uL (1.5-5.0); LYMPH % 27.6 % (24.0-44.0); MEAN CORPUSCULAR HEMOGLOBIN 33.3 pg (27.0-33.0); MEAN CORPUSCULAR HGB CONC 33.2 g/dl (32.0-36.5); MEAN CORPUSCULAR VOLUME 100.3 fl (80.0-96.0); MONO # 0.6 10^3/uL (0.0-0.8); MONO % 8.6 % (0.0-5.0); NEUTROPHILS # 4.1 10^3/uL (1.5-8.5); NEUTROPHILS % 60.8 % (36.0-66.0); PLATELET COUNT, AUTOMATED 333 10^3/uL (150-450); RED BLOOD COUNT 3.36 10^6/uL (4.00-5.40); WHITE BLOOD COUNT 6.8 10^3/uL (4.0-10.0)
[2020-08-14 21:45] VITALS: BP 149/67
--- OUTSIDE RECORDS SUMMARY | 2020-08-14 21:52 | CCD ---
Author Author [facility] Organization [facility] Address Unknown Phone Unavailable Care Team Providers Care [place] Tug Captain Name Role Phone Kendrick, Elvia Amaro MD [...] Maco ADAME MD Unavailable Unavailable ANTECOL, Maco ADMAE MD Unavailable Unavailable ANTECOL, Maco ADAME MD [...] MD Unavailable Unavailable MagnoliaIza Mohinder Unavailable Unavailable GreenfieldIza Unavailable Unavailable [place], Iza Vines Unavailable Unavailable [place], Iza Mohinder Unavailable Unavailable [place], Iza Mohinder Unavailable Unavailable [place], Iza Mohinder Unavailable Unavailable [place], Iza Mohinder Unavailable Unavailable [place], Iza Mohinder Unavailable Unavailable Jc, H Mckenna STATION OPERATOR Unavailable Unavailable Jc, H Mckenna STATION OPERATOR Unavailable Unavailable Jc, H Mckenna STATION OPERATOR Unavailable Unavailable Jc, H Mckenna STATION OPERATOR Unavailable Unavailable Jc, H Mckenna STATION OPERATOR Unavailable Unavailable Jc, H Mckenna STATION OPERATOR Unavailable Unavailable Jc, H Mckenna STATION OPERATOR Unavailable Unavailable Jc, H Mckenna STATION OPERATOR Unavailable Unavailable Jc, H Mckenna STATION OPERATOR Unavailable Unavailable Jc, H Mckenna STATION OPERATOR Unavailable Unavailable Jc, H Mckenna STATION OPERATOR Unavailable Unavailable Jc, H Mckenna STATION OPERATOR Unavailable Unavailable Jc, H Mckenna STATION OPERATOR Unavailable Unavailable Jc, H Mckenna STATION OPERATOR Unavailable Unavailable Jc, H Mckenna STATION OPERATOR Unavailable Unavailable Jc, H Mckenna STATION OPERATOR Unavailable Unavailable Jc, H Mckenna STATION OPERATOR Unavailable Unavailable Jc, H Mckenna STATION OPERATOR Unavailable Unavailable Jc, H Mckenna STATION OPERATOR Unavailable Unavailable Jc, H Mckenna STATION OPERATOR Unavailable Unavailable Jc, H Mckenna STATION OPERATOR Unavailable Unavailable Jc, H Mckenna STATION OPERATOR Unavailable Unavailable Jc, H Mckenna STATION OPERATOR Unavailable Unavailable Jc, H Mckenna STATION OPERATOR Unavailable Unavailable Jc, H Mckenna STATION OPERATOR Unavailable Unavailable Jc, H Mckenna STATION OPERATOR Unavailable Unavailable Jc, H Mckenna STATION OPERATOR Unavailable Unavailable Jc, H Mckenna STATION OPERATOR Unavailable Unavailable Jc, H Mckenna STATION OPERATOR Unavailable Unavailable Jc, H Mckenna STATION OPERATOR Unavailable Unavailable Jc, H Mckenna STATION OPERATOR Unavailable Unavailable Jc, H Mckenna STATION OPERATOR Unavailable Unavailable Jc, H Mckenna STATION OPERATOR Unavailable Unavailable Jc, H Mckenna STATION OPERATOR Unavailable Unavailable Jc, H Mckenna STATION OPERATOR Unavailable Unavailable Jc, H Mckenna STATION OPERATOR Unavailable Unavailable Jc, H Mckenna STATION OPERATOR Unavailable Unavailable Jc, H Mckenna STATION OPERATOR Unavailable Unavailable Jc, H Mckenna STATION OPERATOR Unavailable Unavailable Jc, H Mckenna STATION OPERATOR Unavailable Unavailable Jc, H Mckenna STATION OPERATOR Unavailable Unavailable Jc, H Mckenna STATION OPERATOR Unavailable Unavailable Jc, H Mckenna STATION OPERATOR Unavailable Unavailable Jc, H Mckenna STATION OPERATOR Unavailable Unavailable Jc, H Mckenna STATION OPERATOR Unavailable Unavailable Jc, H Mckenna STATION OPERATOR Unavailable Unavailable Jc, H Mckenna STATION OPERATOR Unavailable Unavailable Jc, H Mckenna STATION OPERATOR Unavailable Unavailable Jc, H Mckenna STATION OPERATOR Unavailable Unavailable Jc, H Mckenna STATION OPERATOR Unavailable Unavailable Jc, H Mckenna STATION OPERATOR Unavailable Unavailable Jc, H Mckenna STATION OPERATOR Unavailable Unavailable Jc, H Mckenna STATION OPERATOR Unavailable Unavailable Jc, H Mckenna STATION OPERATOR Unavailable Unavailable Jc, H Mckenna STATION OPERATOR Unavailable Unavailable Jc, H Mckenna STATION OPERATOR Unavailable Unavailable Jc, H Mckenna STATION OPERATOR Unavailable Unavailable Jc, H Mckenna STATION OPERATOR Unavailable Unavailable Jc, H Mckenna STATION OPERATOR Unavailable Unavailable Jc, H Mckenna STATION OPERATOR Unavailable Unavailable Jc, H Mckenna STATION OPERATOR Unavailable Unavailable Jc, H Mckenna STATION OPERATOR Unavailable Unavailable Jc, H Mckenna STATION OPERATOR Unavailable Unavailable Jc, H Mckenna STATION OPERATOR Unavailable Unavailable Jc, H Mckenna STATION OPERATOR Unavailable Unavailable Jc, H Mckenna STATION OPERATOR Unavailable Unavailable Jc, H Mckenna STATION OPERATOR Unavailable Unavailable Jc, H Mckenna STATION OPERATOR Unavailable Unavailable Jc, H Mckenna STATION OPERATOR Unavailable Unavailable Jc, H Mckenna STATION OPERATOR Unavailable Unavailable Jc, H Mckenna STATION OPERATOR Unavailable Unavailable Jc, H Mckenna STATION OPERATOR Unavailable Unavailable Jc, H Mckenna STATION OPERATOR Unavailable Unavailable Jc, H Mckenna STATION OPERATOR Unavailable Unavailable Jc, H Mckenna STATION OPERATOR Unavailable Unavailable Jc, H Mckenna STATION OPERATOR Unavailable Unavailable Jc, H Mckenna STATION OPERATOR Unavailable Unavailable Jc, H Mckenna STATION OPERATOR Unavailable Unavailable Jc, H Mckenna STATION OPERATOR Unavailable Unavailable Jc, H Mckenna STATION OPERATOR Unavailable Unavailable Jc, H Mckenna STATION OPERATOR Unavailable Unavailable Jc, H Mckenna STATION OPERATOR Unavailable Unavailable Jc, H Mckenna STATION OPERATOR Unavailable Unavailable Jc, H Mckenna STATION OPERATOR Unavailable Unavailable Jc, H Mckenna STATION OPERATOR Unavailable Unavailable Jc, H Mckenna STATION OPERATOR Unavailable Unavailable Jc, H Mckenna STATION OPERATOR Unavailable Unavailable Jc, H Mckenna STATION OPERATOR Unavailable Unavailable Jc, H Mckenna STATION OPERATOR Unavailable Unavailable Jc, H Mckenna STATION OPERATOR Unavailable Unavailable Jc, H Mckenna STATION OPERATOR Unavailable Unavailable Jc, H Mckenna STATION OPERATOR Unavailable Unavailable Jc, H Mckenna STATION OPERATOR Unavailable Unavailable Jc, H Mckenna STATION OPERATOR Unavailable Unavailable Jc, H Mckenna STATION OPERATOR Unavailable Unavailable Jc, H Mckenna STATION OPERATOR Unavailable Unavailable Jc, H Mckenna STATION OPERATOR Unavailable Unavailable Jc, H Mckenna STATION OPERATOR Unavailable Unavailable Jc, H Mckenna STATION OPERATOR Unavailable Unavailable Jc, H Mckenna STATION OPERATOR Unavailable Unavailable Jc, H Mckenna STATION OPERATOR Unavailable Unavailable Jc, H Mckenna STATION OPERATOR Unavailable Unavailable Jc, H Mckenna STATION OPERATOR Unavailable Unavailable Jc, H Mckenna STATION OPERATOR Unavailable Unavailable Jc, H Mckenna STATION OPERATOR Unavailable Unavailable Jc, H Mckenna STATION OPERATOR Unavailable Unavailable Jc, H Mckenna STATION OPERATOR Unavailable Unavailable Jc, H Mckenna STATION OPERATOR Unavailable Unavailable Jc, H Mckenna STATION OPERATOR Unavailable Unavailable Jc, H Mckenna STATION OPERATOR Unavailable Unavailable Jc, H Mckenna STATION OPERATOR Unavailable Unavailable Jc, H Mckenna STATION OPERATOR Unavailable Unavailable Jc, H Mckenna STATION OPERATOR Unavailable Unavailable Jc, H Mckenna STATION OPERATOR Unavailable Unavailable Re-disclosure Warning The records that [...] is protected by Article 27-F of the [facility] Public Health law. If you continue you may have access to information: Regarding HIV / AIDS; Provided by facilities licensed or operated by the [facility] Office of Mental Health; or Provided by the [facility] Office for People With Developmental Disabilities. If such information is present, then the following [facility] mandated warning applies: This information has been [...] law may result in a fine or detention sentence or both. A general authorization for the release of medical or other information is NOT sufficient authorization for further disc losure. Allergies and Adverse Reactions Type Description Substance Reaction Status Data Source(s ) Drug allergy No Known Drug Allergies No Known Drug Allergies [facility] Drug Allergy NKDA NKDA [facility] (Nikunj headley [facility], ) Family History Family Member Name Family Member Gender Family Member Status Date o f Status Description Data Source(s) Unknown Unknown Problem [facility] (Pancho cates [facility], ) Unknown Male Problem [facility] ([facility]) Unknown Unknown Problem [facility] ([facility] Encounters Encounter Providers Location Date Indications Data Source(s ) Outpatient Attender: Mckenna Ochoaerrer: Mckenna Miles NP 05/06/2020 09:19:[address] [facility] Out[facility] Attender: Mckenna Miles NP 04/04/2020 12:53:00 PM E DT SCREEN [facility] SCREEN Outpatient Attender: Mckenna Ochoaerrer: Mckenna Miles NP 03/06/2020 02:32:[address] [facility] Outpatient Attender: Mckenna Littleeferrer: Mckenna Miles NP 01/30/2020 10:14:[address] [facility] Outpatient Attender: Mohinder Olivares/Eliseo/Jhonny/Jose 01/23/2020 03:00:00 PM EDT [facility] ([facility], ) Outpatient Attender: WENDI HOLLOWAY MD Main Office 01/22/2020 08:15:00 AM EDT [facility] ([facility]) Outpatient Attender: Mckenna Ochoaerrer: Mckenna Miles NP 12/07/2019 08:33:[address] [facility] Outpatient Attender: Mckenna Catherine er: Sondra Marks MDConsultant: Mckenna Miles NP 12/05/2019 08:03:00 AM EDT - 12/05/2019 09:03:00 AM EDT [facility] Outpatient Attender: WENDI HOLLOWAY MD Main Office 07/10/2019 10:30:00 AM EST [facility] ([facility]) Outpatient Attender: Mckenna Miles NP 06/27/2019 11:12:00 AM E [facility] Immunizations Vaccine Date Status Description Data [...] Sucralfate 05/06/2020 09:55:52 AM EDT 10 ML [facility] Spironolactone 100 MG Oral Tablet Spironolactone 05/06/2020 09:55:4 0 AM EDT 100 MG [facility] Esomeprazole 40 MG Delayed Release Oral Capsule ESOMEPRAZOLE MAGNESIUM 03/31/2020 12:00:00 AM EDT capsule,delayed release(DR/EC) 90 TAKE ONE CAPSULE BY MOUTH EVERY MORNING 30 MINUTES PRIOR TO FOOD OR DRINK TAKE ONE CAPSULE BY MOUTH EVERY MORNING 30 MINUTES PRIOR TO FOOD OR DRINK SOLD: 03/31/2020 [facility] Sucralfate 03/21/2020 11:15:48 AM EDT 10 ML comple courtney [facility] 100 mg/mL 03/21/2020 12:00:00 AM EDT suspension [...] 03:15: 01 PM EDT 10 ML completed [facility] Sucralfate 100 MG/ML Oral Suspension Sucralfate 03/06/2020 03:15: 01 PM EDT 10 ML active [facility] Esomeprazole 40 MG Delayed Release Oral Capsule Esomep razole Magnesium Esomeprazole Magnesium 03/06/2020 02:43:21 PM EDT 40 MG completed [facility] Esomeprazole 40 MG Delayed Release Oral Capsule Esomep razole Magnesium Esomeprazole Magnesium 03/06/2020 02:43:21 PM EDT 40 MG active [facility] 100 mg/mL 03/06/2020 12:00:00 AM EDT suspension [...] 11:01:1 2 AM EDT 100 MG active [facility] Spironolactone 100 MG Oral Tablet Spironolactone 01/30/2020 11:01:1 2 AM EDT 100 MG active [facility] Spironolactone 100 MG Oral Tablet Spironolactone 01/30/2020 11:01:1 2 AM EDT 100 MG completed [facility] Omeprazole 20 MG Delayed Release Oral Tablet Omeprazole 01/30/2020 11:01:06 AM EDT 20 MG completed [facility] Omeprazole 20 MG Delayed Release Oral Tablet Omeprazole 01/30/2020 11:01:06 AM EDT 20 MG active [facility] Omeprazole 20 MG Delayed Release Oral Tablet Omeprazole 01/30/2020 11:01:06 AM EDT 20 MG completed [facility] meloxicam 7.5 MG Oral Tablet Meloxicam Meloxicam 01/30/2020 11:0 1:02 AM EDT 7.5 MG active [facility] meloxicam 7.5 MG Oral Tablet Meloxicam Meloxicam 01/30/2020 11:0 1:02 AM EDT 7.5 MG active [facility] meloxicam 7.5 MG Oral Tablet Meloxicam Meloxicam 01/30/2020 11:0 1:02 AM EDT 7.5 MG active [facility] atorvastatin 40 MG Oral Tablet Atorvastatin Atorvastatin 01/30/2020 11:00:57 AM EDT 40 MG active [facility] atorvastatin 40 MG Oral Tablet Atorvastatin Atorvastatin 01/30/2020 11:00:57 AM EDT 40 MG active [facility] atorvastatin 40 MG Oral Tablet Atorvastatin Atorvastatin 01/30/2020 11:00:57 AM EDT 40 MG active [facility] Lisinopril 20 MG Oral Tablet Lisinopril 01/30/2020 11:00:55 AM EDT 20 MG active [facility] Lisinopril 20 MG Oral Tablet Lisinopril 01/30/2020 11:00:55 AM EDT 20 MG active [facility] Lisinopril 20 MG Oral Tablet Lisinopril 01/30/2020 11:00:55 AM EDT 20 MG active [facility] carvedilol 3.125 MG Oral Tablet Carvedilol Carvedilol 01/30/2020 11:00:09 AM EDT 3.125 MG active [facility] carvedilol 3.125 MG Oral Tablet Carvedilol Carvedilol 01/30/2020 11:00:09 AM EDT 3.125 MG active [facility] carvedilol 3.125 MG Oral Tablet Carvedilol Carvedilol 01/30/2020 11:00:09 AM EDT 3.125 MG active [facility] Amlodipine 2.5 MG Oral Tablet Amlodipine 01/30/2020 10:59:34 AM EDT 2.5 MG active [facility] Amlodipine 2.5 MG Oral Tablet Amlodipine 01/30/2020 10:59:34 AM EDT 2.5 MG active [facility] Amlodipine 2.5 MG Oral Tablet Amlodipine 01/30/2020 10:59:34 AM EDT 2.5 MG active [facility] 40 mg 01/24/2020 12:00:00 AM EDT capsule,delayed release (DR/EC) 90 TAKE ONE CAPSULE BY MOUTH EVERY MORNING 30 MINUTES PRIOR TO FOOD OR DRINK TAKE ONE CAPSULE BY MOUTH EVERY MORNING 30 MINUTES PRIOR TO FOOD OR DRINK SOLD: 01/24/2020 [facility] Esomeprazole 40 MG Delayed Release Oral Capsule Esomeprazole Magnesium 01/24/2020 12:00:00 AM EDT ORAL active [facility] ([facility], ) 2.5 mg 01/22/2020 12:00:00 AM EDT [...] AM EDT ORAL active [facility] ([facility]) carvedilol 3.125 MG Oral Tablet Carvedilol 01/22/2020 12:00:00 AM EDT ORAL active [facility] ([facility]) carvedilol 3.125 MG Oral Tablet CARVEDILOL 01/22/2020 [...] 11:20:35 AM EDT 10 MG active [facility] Isosorbide Mononitrate 10 MG Oral Tablet Isosorbide Mononitr ate 12/07/2019 11:20:35 AM EDT 10 MG active [facility] Isosorbide Mononitrate 10 MG Oral Tablet Isosorbide Mononitr ate 12/07/2019 11:20:35 AM EDT 10 MG active [facility] 12/07/2019 08:55:05 AM EDT 2 SPRAY active [facility] 12/07/2019 08:55:05 AM EDT 2 SPRAY active [facility] 12/07/2019 08:55:05 AM EDT 2 SPRAY active [facility] 12/07/2019 08:55:05 AM EDT 2 SPRAY active [facility] Spironolactone 100 MG Oral Tablet Spironolactone 12/07/2019 08:54:5 8 AM EDT 100 MG completed [facility] Spironolactone 100 MG Oral Tablet Spironolactone 12/07/2019 08:54:5 8 AM EDT 100 MG active [facility] Spironolactone 100 MG Oral Tablet Spironolactone 12/07/2019 08:54:5 8 AM EDT 100 MG completed [facility] Spironolactone 100 MG Oral Tablet Spironolactone 12/07/2019 08:54:5 8 AM EDT 100 MG completed [facility] Omeprazole 20 MG Delayed Release Oral Tablet Omeprazole 12/07/2019 08:54:50 AM EDT 20 MG active [facility] Omeprazole 20 MG Delayed Release Oral Tablet Omeprazole 12/07/2019 08:54:50 AM EDT 20 MG completed [facility] Omeprazole 20 MG Delayed Release Oral Tablet Omeprazole 12/07/2019 08:54:50 AM EDT 20 MG completed [facility] Omeprazole 20 MG Delayed Release Oral Tablet Omeprazole 12/07/2019 08:54:50 AM EDT 20 MG completed [facility] meloxicam 7.5 MG Oral Tablet Meloxicam Meloxicam 12/07/2019 08:5 4:33 AM EDT 7.5 MG completed [facility] meloxicam 7.5 MG Oral Tablet Meloxicam Meloxicam 12/07/2019 08:5 4:33 AM EDT 7.5 MG completed [facility] meloxicam 7.5 MG Oral Tablet Meloxicam Meloxicam 12/07/2019 08:5 4:33 AM EDT 7.5 MG active [facility] meloxicam 7.5 MG Oral Tablet Meloxicam Meloxicam 12/07/2019 08:5 4:33 AM EDT 7.5 MG completed [facility] Lisinopril 20 MG Oral Tablet Lisinopril 12/07/2019 08:54:22 AM EDT 20 MG active [facility] Lisinopril 20 MG Oral Tablet Lisinopril 12/07/2019 08:54:22 AM EDT 20 MG completed [facility] Lisinopril 20 MG Oral Tablet Lisinopril 12/07/2019 08:54:22 AM EDT 20 MG completed [facility] Lisinopril 20 MG Oral Tablet Lisinopril 12/07/2019 08:54:22 AM EDT 20 MG completed [facility] Isosorbide Mononitrate 10 MG Oral Tablet Isosorbide Mononitr ate 12/07/2019 08:54:07 AM EDT 10 MG completed [facility] Isosorbide Mononitrate 10 MG Oral Tablet Isosorbide Mononitr ate 12/07/2019 08:54:07 AM EDT 10 MG completed [facility] Isosorbide Mononitrate 10 MG Oral Tablet Isosorbide Mononitr ate 12/07/2019 08:54:07 AM EDT 10 MG completed [facility] Isosorbide Mononitrate 10 MG Oral Tablet Isosorbide Mononitr ate 12/07/2019 08:54:07 AM EDT 10 MG active [facility] atorvastatin 40 MG Oral Tablet Atorvastatin Atorvastatin 12/07/2019 08:53:55 AM EDT 40 MG completed [facility] atorvastatin 40 MG Oral Tablet Atorvastatin Atorvastatin 12/07/2019 08:53:55 AM EDT 40 MG completed [facility] atorvastatin 40 MG Oral Tablet Atorvastatin Atorvastatin 12/07/2019 08:53:55 AM EDT 40 MG active [facility] atorvastatin 40 MG Oral Tablet Atorvastatin Atorvastatin 12/07/2019 08:53:55 AM EDT 40 MG completed [facility] Atenolol 25 MG Oral Tablet Atenolol 12/07/2019 08:53:37 AM EDT 2 5 MG completed [facility] Atenolol 25 MG Oral Tablet Atenolol 12/07/2019 08:53:37 AM EDT 2 5 MG completed [facility] Atenolol 25 MG Oral Tablet Atenolol 12/07/2019 08:53:37 AM EDT 2 5 MG active [facility] Atenolol 25 MG Oral Tablet Atenolol 12/07/2019 08:53:37 AM EDT 2 5 MG completed [facility] Amlodipine 5 MG Oral Tablet Amlodipine 12/07/2019 08:53:27 AM EDT 5 MG completed [facility] Amlodipine 5 MG Oral Tablet Amlodipine 12/07/2019 08:53:27 AM EDT 5 MG active [facility] Amlodipine 5 MG Oral Tablet Amlodipine 12/07/2019 08:53:27 AM EDT 5 MG completed [facility] Amlodipine 5 MG Oral Tablet Amlodipine 12/07/2019 08:53:27 AM EDT 5 MG completed [facility] Isosorbide Mononitrate 10 MG Oral Tablet Isosorbide Mononitr ate 12/07/2019 08:43:33 AM EDT 10 MG completed [facility] Isosorbide Mononitrate 10 MG Oral Tablet Isosorbide Mononitr ate 12/07/2019 08:43:33 AM EDT 10 MG completed [facility] Isosorbide Mononitrate 10 MG Oral Tablet Isosorbide Mononitr ate 12/07/2019 08:43:33 AM EDT 10 MG completed [facility] Isosorbide Mononitrate 10 MG Oral Tablet Isosorbide Mononitr ate 12/07/2019 08:43:33 AM EDT 10 MG completed [facility] 40 mg 12/07/2019 12:00:00 AM EDT tablet [...] 08:26:5 8 AM EDT 100 MG completed [facility] Spironolactone 100 MG Oral Tablet Spironolactone 10/17/2019 08:26:5 8 AM EDT 100 MG completed [facility] Spironolactone 100 MG Oral Tablet Spironolactone 10/17/2019 08:26:5 8 AM EDT 100 MG completed [facility] Spironolactone 100 MG Oral Tablet Spironolactone 10/17/2019 08:26:5 8 AM EDT 100 MG completed [facility] Omeprazole 20 MG Delayed Release Oral Tablet Omeprazole 10/17/2019 08:26:52 AM EDT 20 MG completed [facility] Omeprazole 20 MG Delayed Release Oral Tablet Omeprazole 10/17/2019 08:26:52 AM EDT 20 MG completed [facility] Omeprazole 20 MG Delayed Release Oral Tablet Omeprazole 10/17/2019 08:26:52 AM EDT 20 MG completed [facility] Omeprazole 20 MG Delayed Release Oral Tablet Omeprazole 10/17/2019 08:26:52 AM EDT 20 MG completed [facility] 10/17/2019 08:26:40 AM EDT 2 SPRAY completed [facility] 10/17/2019 08:26:40 AM EDT 2 SPRAY completed [facility] 10/17/2019 08:26:40 AM EDT 2 SPRAY completed [facility] 10/17/2019 08:26:40 AM EDT 2 SPRAY completed [facility] Lisinopril 20 MG Oral Tablet Lisinopril 10/17/2019 08:26:18 AM EDT 20 MG completed [facility] Lisinopril 20 MG Oral Tablet Lisinopril 10/17/2019 08:26:18 AM EDT 20 MG completed [facility] Lisinopril 20 MG Oral Tablet Lisinopril 10/17/2019 08:26:18 AM EDT 20 MG completed [facility] Lisinopril 20 MG Oral Tablet Lisinopril 10/17/2019 08:26:18 AM EDT 20 MG completed [facility] Isosorbide Mononitrate 20 MG Oral Tablet Isosorbide Mononitr ate 10/17/2019 08:25:05 AM EDT 20 MG completed [facility] Isosorbide Mononitrate 20 MG Oral Tablet Isosorbide Mononitr ate 10/17/2019 08:25:05 AM EDT 20 MG completed [facility] Isosorbide Mononitrate 20 MG Oral Tablet Isosorbide Mononitr ate 10/17/2019 08:25:05 AM EDT 20 MG completed [facility] Isosorbide Mononitrate 20 MG Oral Tablet Isosorbide Mononitr ate 10/17/2019 08:25:05 AM EDT 20 MG completed [facility] atorvastatin 40 MG Oral Tablet Atorvastatin Atorvastatin 10/17/2019 08:24:47 AM EDT 40 MG completed [facility] atorvastatin 40 MG Oral Tablet Atorvastatin Atorvastatin 10/17/2019 08:24:47 AM EDT 40 MG completed [facility] atorvastatin 40 MG Oral Tablet Atorvastatin Atorvastatin 10/17/2019 08:24:47 AM EDT 40 MG completed [facility] atorvastatin 40 MG Oral Tablet Atorvastatin Atorvastatin 10/17/2019 08:24:47 AM EDT 40 MG completed [facility] Atenolol 25 MG Oral Tablet Atenolol 10/17/2019 08:24:28 AM EDT 2 5 MG completed [facility] Atenolol 25 MG Oral Tablet Atenolol 10/17/2019 08:24:28 AM EDT 2 5 MG completed [facility] Atenolol 25 MG Oral Tablet Atenolol 10/17/2019 08:24:28 AM EDT 2 5 MG completed [facility] Atenolol 25 MG Oral Tablet Atenolol 10/17/2019 08:24:28 AM EDT 2 5 MG completed [facility] Amlodipine 5 MG Oral Tablet Amlodipine 10/17/2019 08:24:13 AM EDT 5 MG completed [facility] Amlodipine 5 MG Oral Tablet Amlodipine 10/17/2019 08:24:13 AM EDT 5 MG completed [facility] Amlodipine 5 MG Oral Tablet Amlodipine 10/17/2019 08:24:13 AM EDT 5 MG completed [facility] Amlodipine 5 MG Oral Tablet Amlodipine 10/17/2019 08:24:13 AM EDT 5 MG completed [facility] 20 mg 10/17/2019 12:00:00 AM EDT tablet [...] 06/27/2019 12:38:38 PM EST 40 MG completed [facility] atorvastatin 40 MG Oral Tablet Atorvastatin Atorvastatin 06/27/2019 12:38:38 PM EST 40 MG completed [facility] atorvastatin 40 MG Oral Tablet Atorvastatin Atorvastatin 06/27/2019 12:38:38 PM EST 40 MG completed [facility] atorvastatin 40 MG Oral Tablet Atorvastatin Atorvastatin 06/27/2019 12:38:38 PM EST 40 MG completed [facility] Omeprazole 20 MG Delayed Release Oral Tablet Omeprazole 06/27/2019 12:38:21 PM EST 20 MG completed [facility] Omeprazole 20 MG Delayed Release Oral Tablet Omeprazole 06/27/2019 12:38:21 PM EST 20 MG completed [facility] Omeprazole 20 MG Delayed Release Oral Tablet Omeprazole 06/27/2019 12:38:21 PM EST 20 MG completed [facility] Omeprazole 20 MG Delayed Release Oral Tablet Omeprazole 06/27/2019 12:38:21 PM EST 20 MG completed [facility] Spironolactone 100 MG Oral Tablet Spironolactone 06/27/2019 12:38:0 3 PM EST 100 MG completed [facility] Spironolactone 100 MG Oral Tablet Spironolactone 06/27/2019 12:38:0 3 PM EST 100 MG completed [facility] Spironolactone 100 MG Oral Tablet Spironolactone 06/27/2019 12:38:0 3 PM EST 100 MG completed [facility] Spironolactone 100 MG Oral Tablet Spironolactone 06/27/2019 12:38:0 3 PM EST [facility] 06/27/2019 12:36:40 PM EST 2 SPRAY completed [facility] [facility] 06/27/2019 12:36:40 PM EST 2 SPRAY completed [facility] 06/27/2019 12:36:40 PM EST 2 SPRAY completed [facility] 06/27/2019 12:36:40 PM EST 2 SPRAY completed [facility] Multivitamin 06/27/2019 12:00:23 PM EST 1 TAB acti [facility] Multivitamin 06/27/2019 12:00:23 PM EST 1 TAB acti [facility] Multivitamin 06/27/2019 12:00:23 PM EST 1 TAB acti [facility] Multivitamin 06/27/2019 12:00:23 PM EST 1 TAB acti [facility] meloxicam 7.5 MG Oral Tablet Meloxicam Meloxicam 06/27/2019 12:0 0:10 PM EST 7.5 MG completed [facility] meloxicam 7.5 MG Oral Tablet Meloxicam Meloxicam 06/27/2019 12:0 0:10 PM EST 7.5 MG [facility] meloxicam 7.5 MG Oral Tablet Meloxicam Meloxicam 06/27/2019 12:0 0:10 PM EST 7.5 MG completed [facility] meloxicam 7.5 MG Oral Tablet Meloxicam Meloxicam 06/27/2019 12:0 0:10 PM EST 7.5 MG completed [facility] Lisinopril 20 MG Oral Tablet Lisinopril 06/27/2019 11:59:49 AM EST 20 MG completed [facility] Lisinopril 20 MG Oral Tablet Lisinopril 06/27/2019 11:59:49 AM EST 20 MG completed [facility] Lisinopril 20 MG Oral Tablet Lisinopril 06/27/2019 11:59:49 AM EST 20 MG completed [facility] Lisinopril 20 MG Oral Tablet Lisinopril 06/27/2019 11:59:49 AM EST 20 MG completed [facility] Isosorbide Mononitrate 20 MG Oral Tablet Isosorbide Mononitr ate 06/27/2019 11:59:28 AM EST 20 MG completed [facility] Isosorbide Mononitrate 20 MG Oral Tablet Isosorbide Mononitr ate 06/27/2019 11:59:28 AM EST 20 MG completed [facility] Isosorbide Mononitrate 20 MG Oral Tablet Isosorbide Mononitr ate 06/27/2019 11:59:28 AM EST 20 MG completed [facility] Isosorbide Mononitrate 20 MG Oral Tablet Isosorbide Mononitr ate 06/27/2019 11:59:28 AM EST 20 MG [facility] Calcium Carbonate 1500 MG / Cholecalcife rol 800 UNT Chewable Tablet Calcium Carbonate-Vitamin D3 (Calcium 600 With Vitamin D3) 600 mg(1,500mg) -400 unit tablet,chewable Calcium Carbonate-Vitamin D3 (Calcium 60 0 With Vitamin D3) 600 mg(1,500mg) -400 unit tablet,chewable 06/27/2019 11:58:25 AM EST active [facility] Calcium Carbonate 1500 MG / Cholecalcife rol 800 UNT Chewable Tablet Calcium Carbonate-Vitamin D3 Calcium Carbonate-Vitamin D3 06/27/2019 11:58:25 AM EST active [facility] Calcium Carbonate 1500 MG / Cholecalcife rol 800 UNT Chewable Tablet Calcium Carbonate-Vitamin D3 (Calcium 600 With Vitamin D3) 600 mg(1,500mg) -400 unit tablet,chewable Calcium Carbonate-Vitamin D3 (Calcium 60 0 With Vitamin D3) 600 mg(1,500mg) -400 unit tablet,chewable 06/27/2019 11:58:25 AM EST active [facility] Calcium Carbonate 1500 MG / Cholecalcife rol 800 UNT Chewable Tablet Calcium Carbonate-Vitamin D3 Calcium Carbonate-Vitamin D3 06/27/2019 11:58:25 AM EST active [facility] Atenolol 25 MG Oral Tablet Atenolol 06/27/2019 11:58:06 AM EST 2 5 MG completed [facility] Atenolol 25 MG Oral Tablet Atenolol 06/27/2019 11:58:06 AM EST 2 5 MG [facility] Atenolol 25 MG Oral Tablet Atenolol 06/27/2019 11:58:06 AM EST 2 5 MG [facility] Atenolol 25 MG Oral Tablet Atenolol 06/27/2019 11:58:06 AM EST 2 5 MG [facility] Amlodipine 5 MG Oral Tablet Amlodipine 06/27/2019 11:57:37 AM EST 5 MG [facility] Amlodipine 5 MG Oral Tablet Amlodipine 06/27/2019 11:57:37 AM EST 5 MG [facility] Amlodipine 5 MG Oral Tablet Amlodipine 06/27/2019 11:57:37 AM EST 5 MG [facility] Amlodipine 5 MG Oral Tablet Amlodipine 06/27/2019 11:57:37 AM EST 5 MG [facility] Omeprazole 20 MG Delayed Release Oral Tablet Omeprazole 06/27/2019 11:57:15 AM EST 20 MG [facility] Omeprazole 20 MG Delayed Release Oral Tablet Omeprazole 06/27/2019 11:57:15 AM EST 20 MG [facility] Omeprazole 20 MG Delayed Release Oral Tablet Omeprazole 06/27/2019 11:57:15 AM EST 20 MG [facility] Omeprazole 20 MG Delayed Release Oral Tablet Omeprazole 06/27/2019 11:57:15 AM EST 20 MG [facility] Spironolactone 100 MG Oral Tablet Spironolactone 06/27/2019 11:56:5 2 AM EST 100 MG completed [facility] Spironolactone 100 MG Oral Tablet Spironolactone 06/27/2019 11:56:5 2 AM EST 100 MG completed [facility] Spironolactone 100 MG Oral Tablet Spironolactone 06/27/2019 11:56:5 2 AM EST 100 MG completed [facility] Spironolactone 100 MG Oral Tablet Spironolactone 06/27/2019 11:56:5 2 AM EST 100 MG completed [facility] atorvastatin 40 MG Oral Tablet Atorvastatin Atorvastatin 06/27/2019 11:56:34 AM EST 40 MG completed [facility] atorvastatin 40 MG Oral Tablet Atorvastatin Atorvastatin 06/27/2019 11:56:34 AM EST 40 MG completed [facility] atorvastatin 40 MG Oral Tablet Atorvastatin Atorvastatin 06/27/2019 11:56:34 AM EST 40 MG completed [facility] atorvastatin 40 MG Oral Tablet Atorvastatin Atorvastatin 06/27/2019 11:56:34 AM EST 40 MG completed [facility] 06/27/2019 11:55:09 AM EST 2 SPRAY completed [facility] 06/27/2019 11:55:09 AM EST 2 SPRAY completed [facility] 06/27/2019 11:55:09 AM EST 2 SPRAY completed [facility] 06/27/2019 11:55:09 AM EST 2 SPRAY completed [facility] 40 mg 06/27/2019 12:00:00 AM EST tablet [...] EDT ORAL completed [facility]) Amlodipine 5 MG Oral Tablet amLODIPine Besylate 5MG Or al Tablet amLODIPine Besylate 5MG Oral Tablet 03/21/2019 12:00:00 AM EDT 1 active Amlodipine 5 MG Oral Tablet [place] ([facility]) Spironolactone 100 MG Oral Tablet Spironolactone 100MG Oral Tablet Spironolactone 100MG Oral Tablet 03/21/2019 12:00:00 AM EDT active Spironolactone 100 MG Oral Tablet [facility]) Lisinopril 5 MG Oral Tablet Lisinopril 5MG Oral Tablet Lisinopril 5MG Oral Tablet 03/21/2019 12:00:00 AM EDT active Lisinopril 5 MG Oral Tablet [facility]) Nasonex 50MCG/ACT Nasal Suspension Nasonex 50MCG/ACT Nasal S uspension 03/21/2019 12:00:00 AM EDT active mometasone furoate 0.05 MG/ACTUAT Metered Dose Nasal Tad [Nasonex] [facility]) meloxicam 7.5 MG Oral Tablet Meloxicam 7.5MG Oral Tabl et Meloxicam 7.5MG Oral Tablet 03/21/2019 12:00:00 AM EDT active meloxicam 7.5 MG Oral Tablet [facility]) atorvastatin 40 MG Oral Tablet Atorvastatin Calcium 40 MG Oral Tablet Atorvastatin Calcium 40MG Oral Tablet 03/21/2019 12:00:00 AM EDT active atorvastatin 40 MG Oral Tablet [facility]) Atenolol 25 MG Oral Tablet Atenolol 25MG [...] type / Coverage type Policy ID Covered republican ID Covered republican's relationship to foster Policy Foster Plan Information MEDICARE BLUE PPO 306 [id number] SP [id number] BLUE CROSS BLUE SHIELD MCR -OP [id number] EXCELLUS BCBS B [id number] S [id number] BCBS of [facility] Other 0 Self 0 BCBS of [facility] Other 0 Self 0 BCBS Medicare Blue U/W Commercial [id number] Self [id number] Medicare Blue Ppo Commercial [id number] Self [id number] Cigna/Conn Gen/MVP Medigap Part B [id number] BCBS of [facility] Other 0 Self 0 BCBS Medicare Blue U/W Commercial [id number] Self [id number] BCBS Medicare Blue U/W Commercial [id number] Self [id number] BCBS Medicare Blue U/W Commercial [id number] Self [id number] BCBS of [facility] Other 0 Self 0 BCBS of [facility] Other 0 Self 0 BCBS Medicare Commercial [id number] Self [id number] [id number] EXCELLUS MEDICARE BLUE PPO G [id number] Self [id number] BCBS Medicare Commercial [id number] Self VY [id number] MEDICARE BLUE PPO 306 [id number] SP [id number] BCBS Medicare Commercial [id number] Self [id number] [id number] BCBS Medicare Commercial [id number] Self [id number] [id number] BCBS Medicare Commercial [id number] Self VY [id number] BCBS Medicare Commercial [id number] Self VY [id number] BCBS Medicare Commercial [id number] Self VY [id number] BCBS Medicare Commercial [id number] Self VY [id number] BCBS Medicare Commercial [id number] Self VY [id number] Medicare Blue Ppo Commercial [id number] Self [id number] Cigna/Conn Gen/MVP Medigap Part B Medicare Blue Ppo Commercial Self BCBS Medicare Commercial Self EXCELLUS BCBS B [id number] S [id number] [id number] BLUE CROSS BLUE SHIELD -O/P [id number] BS Of [facility] Maintenance [facility] (O) Self BLUE CROSS BLUE SHIELD-O/P [id number] Problems, Conditions, and Diagnoses Code Display Name Description Problem Type Effective Dates Data Source(s) 988045789 Aortic valve stenosis with insufficiency Aortic valve stenosis with insufficiency Problem 01/22/2020 12:00:00 AM EDT [facility] ([facility] E785 Hyperlipidemia, unspecified Hyperlipidemia, unspecifie d Diagnosis 12/05/2019 08:03:00 AM EDT [facility] Surgeries/Procedures Procedure Description Date Indications Data Source(s) Ultrasonography of breast (procedure) 04/04/2020 01:41 :00 PM EDT [facility] Screening mammography (procedure) 04/04/2020 01:15:00 PM EDT [facility] ECG ROUTINE ECG W/LEAST 12 LDS W/I&R 01/22/2020 12:00: 00 AM EDT [facility] ([facility]) Arterial Pressure Waveform Analysis For Assessment Of Centra l Art 01/22/2020 12:00:00 AM EDT [facility] ([facility]) Arterial Pressure Waveform Analysis For Assessment Of Centra l Art 07/10/2019 12:00:00 AM EST [facility] ([facility]) Results ID Date Data Source [id number] 05/06/2020 09:23:00 AM EDT [facility] Patient Name: SOLITARIO ROWELL OB: 1945 Sex: F Pt Unit #: [id number] Location:[facility] Provider: Visit Date/Time: 05/06/20 Primary Insurance: MEDICARE [...] is here for a hypertension follow up. [employer] Required: No Accompanied by: Is patient in [...] Screening Screening Have you traveled outside of [facility] or [facility] in the last 14 days.: No Has patient experienced coronavirus symptoms: No [facility] Social History Does the Patient have a [...] I10 - Essential (primary) hypertension SNOMED Code(s): 61228554 Category: Medical Plan - Mckenna Miles STATION OPERATOR: RTC 3 MONTHS HAD FLU SHOT AT PHARMACY Orders Other Medications: Refilled: spironolactone 100 mg PO BID 180 tabs 3RF sucralfate TAKE 1 HOUR BEFORE MEALS AT BEDTIME 10 mL PO QID 420 mL 5RF Electronically Signed By: <Electronically signed by Mckenna Miles NP> Date/Time Signed: 05/06/20 1006 Name Value Range Interpretation Code Description Data Joseline rce(s) Supporting Document(s) ID Date Data Source [id number] 04/04/2020 04:39:00 PM EDT [facility] [address] [place], [place] [id number] [phone] NAME SEX PT STATUS ACCOUNT NUMBER SOLITARIO ROWELL REG REF [id number] ORDERING PHYSICIAN LOCATION MEDICAL RECORD NO. Mckenna Miles MAMMO [id number] ATTENDING PHYSICIAN DATE OF DATE OF EXAM/TIME [...] rce(s) Supporting Document(s) ID Date Data Source [id number] 04/04/2020 04:21:00 PM EDT [facility] [address] [place], [place] [address] [phone] NAME SEX PT STATUS ACCOUNT NUMBER SOLITARIO ROWELL REG REF [id number] ORDERING PHYSICIAN LOCATION MEDICAL RECORD NO. Mckenna PATEL Jc MAMMO [id number] ATTENDING PHYSICIAN DATE OF DATE OF EXAM/TIME Mckenna Miles STATION OPERATOR 1945 04/04/201314 TYPE / EXAM 3D DIG [...] rce(s) Supporting Document(s) ID Date Data Source [id number] 03/06/2020 02:38:00 PM EDT [facility] Patient Name: SOLITARIO ROWELL : 1945 Sex: F Pt Unit #: [id number] Location:[facility] Provider: Visit Date/Time: 03/06/20 Primary Insurance: MEDICARE [...] a day until she started feeling better. [employer] Required: No Accompanied by: Is patient in pain?: Yes Allergies No Known Drug Allergies Allergy (Unverified 06/27/19 11:55) HIV Testing Offer - ages 13-64 Requirement for HIV testing offer been met?: Patient reports past refusal Coronavirus Screening Screening Have you traveled outside of [facility] or [facility] in the last 14 days.: No Has patient experienced coronavirus symptoms: No [facility] Social History Does the Patient have a Healthcare Proxy: No Does Patient have a DNR?: No Does Patient have a Living Will?: No HPI Additional HPI HPI Details: RECHECK. HAD UPPER GI BY [facility]. RECOMMENDED SUCRALFATE QID. WOULD LIKE REFILLED COMPUTER SYSTEM DOWN AT [facility]. FEELS WELL GERD History of Present [...] I10 - Essential (primary) hypertension SNOMED Code(s): 63073383 Category: Medical Orders Other Medications: New: sucralfate TAKE 1 HOUR BEFORE MEALS AT BEDTIME 10 mL PO QID 420 mL 5RF Other Orders: Orders: 3D DIG MAMMO SCREEN BILAT Today Z12.31 Electronically Signed By: <Electronically signed by Mckenna Miles NP> Date/Time Signed: 03/06/20 1529 Name Value Range Interpretation Code Description Data Joseline rce(s) Supporting Document(s) ID Date Data Source [id number] 02/21/2020 08:36:00 AM EDT [facility] ([facility], ) Name Value Range Interpretation Code Description Data Joseline rce(s) Supporting Document(s) Surgical pathology study Laboratory test result [facility] ([facility], ) FINAL DIAGNOSIS Stomach, prepyloric area, biopsy: [...] MD 02/22/2020 1351 ID Date Data Source [id number] 02/16/2020 12:00:00 AM EDT [facility] Name Value Range Interpretation Code Description Data Joseline rce(s) Supporting Document(s) SARS coronavirus 2 RNA [facility] This lab was ordered by [facility] and reported by [facility]. ID Date Data Source [id number] 01/30/2020 10:56:00 AM EDT [facility] Patient Name: SOLITARIO ROWELL : 1945 Sex: F Pt Unit #: [id number] Location:[facility] Provider: Visit Date/Time: 01/30/20 Primary Insurance: MEDICARE [...] Screening Screening Have you traveled outside of [facility] or [facility] in the last 14 days.: No Has [...] without abnormal findings Plan - Mckenna Miles STATION OPERATOR: LABS REVEIWED. RTC 3 MONTHS (2) HTN (hypertension), benign: Status: Acute Code(s): I10 - Essential (primary) hypertension SNOMED Code(s): 53887667 Category: Medical (3) Arthralgia of hip: Status: Acute Code(s): M25.559 - Pain in unspecified hip SNOMED Code(s): 67125792 Category: Medical Orders Other Medications: Refilled: lisinopril [...] rce(s) Supporting Document(s) ID Date Data Source [id number] 12/07/2019 08:39:00 AM EDT [facility] Patient Name: SOLITARIO ROWELL : 1945 Sex: F Pt Unit #: [id number] Location:[facility] Provider: Visit Date/Time: 12/07/19 Primary Insurance: MEDICARE [...] Screening Screening Have you traveled outside of [facility] or [facility] in the last 14 days.: No Has [...] rce(s) Supporting Document(s) ID Date Data Source [id number] 12/05/2019 01:01:00 PM EDT [facility] ([facility]) Name Value Range Interpretation Code Description Data Joseline rce(s) Supporting Document(s) Platelets 326 [facility] Red Blood Count 3.37 [facility]) White Blood Count 4.4 [facility] ([facility]) Hematocrit 33.1 [facility] ([facility]) Hemoglobin 11.3 [facility] ([facility]) ID Date Data Source [id number] 12/05/2019 01:01:00 PM EDT [facility]) Name Value Range Interpretation Code Description Data Joseline rce(s) Supporting Document(s) HDL 51 [facility] Cholesterol 155 [facility] ([facility]) Triglycerides 100 [facility] ([facility]) Chol/HDL Ratio 3.0 [facility] ([facility]) Cholesterol in LDL [Mass/volume] in Serum or Plasma by calculation 89 [facility] ([facility]) ID Date Data Source [id number] 12/05/2019 01:01:00 PM EDT [facility] ([facility]) Name Value Range Interpretation Code Description Data Joseline rce(s) Supporting Document(s) Albumin [Mass/volume] in Serum or Plasma 4.5 [facility] ([facility]) Alanine aminotransferase [Enzymatic activity/volume] in Serum or Pl asma 27 [facility] ([facility]) Carbon dioxide, total [Moles/volume] in Serum or Plasma 23 [facility] ([facility]) Calcium [Mass/volume] in Serum or Plasma 9.4 [facility] ([facility]) Protein [Mass/volume] in Serum or Plasma 7.0 [facility] ([facility]) Chloride [Moles/volume] in Serum or Plasma 107 [facility] ([facility]) Potassium [Moles/volume] in Serum or Plasma 5.0 [facility] ([facility]) Alkaline phosphatase [Enzymatic activity/volume] in Serum or Plasma 5 5 [facility] ([facility]) Aspartate aminotransferase [Enzymatic activity/volume] in Serum or Plasma 25 [facility] ([facility]) Urea nitrogen [Mass/volume] in Serum or Plasma 17 [facility] ([facility]) Sodium 140 [facility] ([facility]) Creatinine For GFR 1.1 [facility] ([facility]) Glucose 112 [facility] ([facility]) ID Date Data Source [id number] 12/05/2019 08:58:00 AM EDT [facility] Name Value Range Interpretation Code Description Data Joseline rce(s) Supporting Document(s) COMPREHENSIVE METABOLIC PANEL [facility] COMPREHENSIVE METABOLIC PANEL Sodium [Moles/volume] in Serum or Plasma 140 mEq/L 134 - 153 [facility] Potassium [Moles/volume] in Serum or Plasma 5.0 mEq/L 3.6 - 5.0 [facility] Chloride [Moles/volume] in Serum or Plasma 107 mEq/L 98 - 107 [facility] Carbon dioxide, total [Moles/volume] in Serum or Plasma 23 MEQ/L 22 - 30 [facility] Glucose [Mass/volume] in Serum or Plasma 112 MG/DL 65 - 110 H [facility] BUN 17 MG[facility]DL 7 - [facility] Creatinine [Mass/volume] in Serum or Plasma 1.1 MG/DL 0.7 - 1.5 [facility] BUN/CREAT 15 8 - 27 [facility] al Protein [Mass/volume] in Serum or Plasma 7.0 G/DL 6.3 - 8.2 [facility] Albumin [Mass/volume] in Serum or Plasma 4.5 G/DL 3.9 - 5.0 [facility] Globulin [Mass/volume] in Serum by calculation 2.5 GM/DL 2.4 - 3.2 [facility] A/G RATIO 1.8 0.8 - 2.0 [facility] Calcium [Mass/volume] in Serum or Plasma 9.4 MG/DL 8.4 - 10.2 [facility] Bilirubin.total [Mass/volume] in Serum or Plasma <0.7 MG/DL 0.2 - 1.3 [facility] Alkaline phosphatase [Enzymatic activity/volume] in Serum or Plasma 55 U/L 38 - 126 [facility] Aspartate aminotransferase [Enzymatic activity/volume] in Serum or Plasma 25 U/L 5 - 40 [facility] Alanine aminotransferase [Enzymatic activity/volume] in Seru m or Plasma 27 U/L 7 - 56 [facility] Anion gap 3 in Serum or Plasma 10.0 mmol/L 8.0 - 16.0 [facility] AGE 73 yrs [facility] NON-AA GFR 52 mL/min [facility] AFR AMER GFR >60 [facility] pital Male GFR In terprentation 20-49 yrs [...] >32 mL/min Normal ID Date Data Source [id number] 12/05/2019 08:58:00 AM EDT [facility] Name Value Range Interpretation Code Description Data Joseline rce(s) Supporting Document(s) CVE PANEL [facility] LIPID PANEL Cholesterol [Mass/volume] in Serum or Plasma 155 MG/DL 131 - 200 [facility] Deprecated Triglyceride [Mass/volume] in Serum or Plasma 100 MG/DL 3 5 - 160 [facility] HDL 51 MG/DL 29 - 86 [facility] al Cholesterol in LDL/Cholesterol in HDL [Mass Ratio] in Serum or Plasma 89 mg/dL 65 - 175 [facility] Cholesterol.total/Cholesterol in HDL [Mass Ratio] in Serum o r Plasma 3.0 3.2 - 4.4 L [facility] LDL/HDL 1.75 1.47 - 3.22 [facility] CVE RISK CHOL/HDL LDL/HDLMEN: 1/2 AVERAGE 3.43 1.00 AVERAGE 4.97 3.55 2X AVERAGE 9.55 6.25 3X AVERAGE 23.99 7.99WOMEN: 1/2 AVERAGE 3.27 1.47 AVERAGE 4.44 3.22 2X AVERAGE 7.05 5.03 3X AVERAGE 11.04 6.14 ID Date Data Source [id number] 12/05/2019 08:42:00 AM EDT [facility] Name Value Range Interpretation Code Description Data Joseline rce(s) Supporting Document(s) CBC W/AUTOMATED DIFF [facility] COMPLETE BLOOD COUNT Leukocytes [#/volume] in Blood by Automated count 4.4 10^3/uL 4.2 - 1 1.0 [facility] Erythrocytes [#/volume] in Blood by Automated count 3.37 10^6/uL 4. 20 - 5.40 L [facility] Hemoglobin [Mass/volume] in Blood 11.3 g/dL 12.0 - 16.0 L [facility] Hematocrit [Volume Fraction] of Blood by Automated count 33.1 % 3 7.0 - 47.0 L [facility] Erythrocyte mean corpuscular volume [Entitic volume] by Auto mated count 98.2 fL 81.0 - 101 [facility] Erythrocyte mean corpuscular hemoglobin [Entitic mass] by Automated count 33.5 pg 27.0 - 34.0 [facility] Erythrocyte mean corpuscular hemoglobin concentration [Mass/volume] by Automated count 34.1 g/dL 31.0 - 36.0 [facility] Erythrocyte distribution width [Ratio] by Automated count 11.5 % 11.5 - 14.5 [facility] Platelets [#/volume] in Blood by Automated count 326 10^3/uL 150 - 45 0 [facility] Platelet mean volume [Entitic volume] in Blood by Automated count 10.3 fL 7.4 - 10.4 [facility] Neutrophils/100 leukocytes in Blood by Automated count 52.8 % 37. 0 - 80.0 [facility] Lymphocytes/100 leukocytes in Blood by Manual count 34.5 % 25.0 - 40.0 [facility] Monocytes/100 leukocytes in Blood by Automated count 8.4 % 3.0 - 8.0 H [facility] Eosinophils/100 leukocytes in Blood by Automated count 3.0 % 0.0 - 7.0 [facility] Basophils/100 leukocytes in Blood by Automated count 1.1 % 0.0 - 2.5 [facility] %IG 0.2 % 0.0 - 0.0 H [facility] %NRBC 0.0 % 0.0 - 0.0 [facility] al Neutrophils [#/volume] in Blood by Automated count 2.31 10^3/uL 2.00 - 6.90 [facility] Lymphocytes [#/volume] in Blood by Automated count 1.51 10^3/uL 0.60 - 3.40 [facility] Monocytes [#/volume] in Blood by Automated count 0.37 10^3/uL 0.00 - 0.90 [facility] Eosinophils [#/volume] in Blood by Automated count 0.13 10^3/uL 0.00 - 0.70 [facility] Basophils [#/volume] in Blood by Automated count 0.05 10^3/uL 0.00 - 0.20 [facility] #IG 0.01 10^3/uL 0.00 - 0.10 [facility] #NRBC 0.00 10^3/uL 0.00 - 0.00 [facility] MANUAL DIFF NOT INDICATED [facility] RBC MORPH NOT INDICATED [facility] spital ID Date Data Source [id number] 06/27/2019 11:52:00 AM [facility] Patient Name: SOLITARIO ROWELL : 1945 Sex: F Pt Unit #: [id number] Location:[facility] Provider: Visit Date/Time: 06/27/19 Primary Insurance: MEDICARE [...] is here today as new pt to [facility] but followed mckenna miles from dr [...] is a former smoker [facility] ([facility]) Vital Signs ID Date Data Source UNK Name Value Range Interpretation Code Description Data Source(s) Body weight 59.989 kg 59.989 kg [facility] ([facility]) Body mass index (BMI) [Ratio] 25.0 kg/m2 25.0 k g/m2 [facility] ([facility]) Body weight 132.25 [lb_av] 132.25 [lb_av] [facility] ([facility]) Body height 61 [in_i] 61 [in_i] [facility] ([facility]) 5'1" Diastolic blood pressure 62 mm[Hg] 62 mm[Hg] [facility] ([facility]) Systolic blood pressure 128 mm[Hg] 128 mm[Hg] [facility] ([facility]) Diastolic blood pressure--sitting 45 mm[Hg] 45 mm[Hg] [facility] ([facility]) CBP adult cuff, Ra Systolic blood pressure--sitting 116 mm[Hg] 116 mm[Hg] [facility] ([facility]) CBP adult cuff, Ra Heart rate 48 /min 48 /min [facility] ([facility] Body mass index (BMI) [Ratio] 24.4 kg/m2 24.4 k g/m2 [facility] ([facility]) Body height 61 [in_i] 61 [in_i] [facility] 5'1" Body weight 129.00 [lb_av] 129.00 [lb_av] [facility] ([facility]) Diastolic blood pressure--sitting 52 mm[Hg] 52 mm[Hg] [facility] ([facility]) CBP adult cuff, Ra Systolic blood pressure--sitting 128 mm[Hg] 128 mm[Hg] [facility] ([facility]) CBP adult cuff, Ra Heart rate 53 /min 53 /min [facility] Body mass index (BMI) [Ratio] 24.7 kg/m2 24.7 k g/m2 [facility] ([facility]) Body height 61 [in_i] 61 [in_i] [facility] 5'1" Body weight 131.00 [lb_av] 131.00 [lb_av] [facility] ([facility]) Patient Treatment Plan of Care Planned Activity Planned Date Details Description Data Source (s) Atenolol 25 MG Oral Tablet 03/21/2019 12:00:00 AM EDT [place] ([facility]) atorvastatin 40 MG Oral Tablet 03/21/2019 12:00:00 AM EDT [place] ([facility]) Lisinopril 5 MG Oral Tablet 03/21/2019 12:00:00 AM EDT [place] ([facility]) meloxicam 7.5 MG Oral Tablet 03/21/2019 12:00:00 AM EDT [place] ([facility]) Nasonex 50MCG/ACT Nasal Suspension 03/21/2019 12:00:00 AM EDT [place] ([facility]) Omeprazole 20 MG Delayed Release Oral Capsule 03/21/2019 12:00:00 A M EDT [place] ([facility]) Amlodipine 5 MG Oral Tablet 03/21/2019 12:00:00 AM EDT [place] ([facility]) Spironolactone 100 MG Oral Tablet 03/21/2019 12:00:00 AM EDT [place] ([facility])
--- NOTE | 2020-08-15 00:53 | ECGEPIP ---
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
== END 2020-08-14 22:38 | disposition home or self-care (01) ==
LOC: M ED 20:34
DX: I10 Essential (primary) hypertension (principal); Z91.11 Patient's noncompliance with dietary regimen; J30.2 Other seasonal allergic rhinitis; J30.81 Allergic rhinitis due to animal (cat) (dog) hair and dander; Z79.899 Other long term (current) drug therapy; Z88.8 Allergy status to other drugs, medicaments and biological substances; Z91.010 Allergy to peanuts

== ENCOUNTER 2022-09-19 18:48 | Emergency (ER) | payer MEDICARE ==
[~2022-09-19] VITALS: Ht 154.9 cm; Wt 56.9 kg
[~2022-09-19 18:48] MED LIST changes: -LISI-542; -LISI-542 PO; +LISI5TAB11; +LISI5TAB11 PO; +SUCR1ORA2
[2022-09-19] MEDS ORDERED: PRAV10TA3 PO (19:10)
[2022-09-19] MEDS ORDERED: FENO67CA16 PO (19:10)
[2022-09-19 21:00] LABS: BASO % 0.8 % (0.0-1.0); EOS # 0.1 10^3/uL (0.0-0.5); EOS % 2.1 % (0.0-3.0); HEMATOCRIT 30.3 % (36.0-47.0); HEMOGLOBIN 10.3 g/dl (12.0-15.5); LYMPH # 1.6 10^3/uL (1.5-5.0); LYMPH % 31.3 % (24.0-44.0); MEAN CORPUSCULAR HEMOGLOBIN 33.4 pg (27.0-33.0); MEAN CORPUSCULAR VOLUME 98.4 fl (80.0-96.0); MONO # 0.4 10^3/uL (0.0-0.8); MONO % 8.2 % (2.0-8.0); NEUTROPHILS % 57.4 % (36.0-66.0); PLATELET COUNT, AUTOMATED 308 10^3/uL (150-450); RED BLOOD COUNT 3.08 10^6/uL (4.00-5.40); WHITE BLOOD COUNT 5.1 10^3/uL (4.0-10.0)
[2022-09-19 21:29] LABS: CALCIUM LEVEL 9.2 MG/DL (8.3-10.6); CREATININE FOR GFR 1.3 MG/DL (0.55-1.30); GLOMERULAR FILTRATION RATE 42.6 (>39); POTASSIUM SERUM 5.1 MMOL/L (3.5-5.1)
[2022-09-19 22:04] VITALS: BP 130/80
== END 2022-09-19 22:30 | disposition home or self-care (01) ==
LOC: M ED 18:48
DX: I10 Essential (primary) hypertension (principal); E78.5 Hyperlipidemia, unspecified; K21.9 Gastro-esophageal reflux disease without esophagitis; Z88.2 Allergy status to sulfonamides; Z91.010 Allergy to peanuts; Z79.811 Long term (current) use of aromatase inhibitors; Z79.810 Long term (current) use of selective estrogen receptor modulators (SERMs); Z79.899 Other long term (current) drug therapy

== ENCOUNTER 2023-08-02 06:03 | Emergency (ER) | payer MEDICARE ==
[~2023-08-02] VITALS: Ht 154.9 cm; Wt 57.2 kg
[~2023-08-02 06:03] MED LIST changes: +FENO67CA16 PO; +PRAV10TA3 PO
[2023-08-02 08:26] VITALS: BP 135/65; TEMP 98.8; O2SAT 96
== END 2023-08-02 08:43 | disposition home or self-care (01) ==
LOC: M ED 06:03
DX: U07.1 COVID-19 (principal); I10 Essential (primary) hypertension; K21.9 Gastro-esophageal reflux disease without esophagitis; N18.30 Chronic kidney disease, stage 3 unspecified; Z88.8 Allergy status to other drugs, medicaments and biological substances; Z91.010 Allergy to peanuts; Z91.048 Other nonmedicinal substance allergy status; Z79.899 Other long term (current) drug therapy; Z79.810 Long term (current) use of selective estrogen receptor modulators (SERMs); Z79.83 Long term (current) use of bisphosphonates

== ENCOUNTER 2023-08-20 16:55 | Emergency (ER) | payer MEDICARE ==
[~2023-08-20] VITALS: Ht 154.9 cm; Wt 57.4 kg
[2023-08-20] MEDS ORDERED: AMLO1TAB24 (17:19)
[2023-08-20] MEDS ORDERED: PRAV20TA2 (17:19)
[2023-08-20] MEDS ORDERED: PROBCAP14 PO (17:19)
[2023-08-20] MEDS ORDERED: LISI10TA22 (17:19)
[2023-08-20 18:36] LABS: APPEARANCE, URINE CLEAR (CLEAR); BACTERIA, URINE AUTO NEGATIVE (NEGATIVE); BILIRUBIN, URINE AUTO NEGATIVE (NEGATIVE); BLOOD, URINE BLOOD NEGATIVE (NEGATIVE); COLOR, URINE COLORLESS (YELLOW); GLUCOSE, URINE (UA) AUTO NEGATIVE (NEGATIVE); KETONE, URINE AUTO NEGATIVE (NEGATIVE); LEUKOCYTE ESTERASE, URINE AUTO NEGATIVE (NEGATIVE); NITRITE, URINE AUTO NEGATIVE (NEGATIVE); PROTEIN, URINE AUTO NEGATIVE (NEGATIVE); RBC, URINE AUTO 0 /HPF (0-3); SPECIFIC GRAVITY URINE AUTO 1.005 (1.002-1.035); SQUAMOUS EPITHELIAL CELL UR AU 0 /HPF (0-6); UROBILINOGEN, URINE AUTO 0.2 mg/dL (0.0-2.0); WBC, URINE AUTO 0 /HPF (0-3)
[2023-08-20 18:40] LABS: BASO # 0.1 10^3/uL (0.0-0.2); BASO % 0.7 % (0.0-1.0); EOS # 0.1 10^3/uL (0.0-0.5); EOS % 1.4 % (0.0-3.0); HEMATOCRIT 27.7 % (36.0-47.0); HEMOGLOBIN 9.6 g/dl (12.0-15.5); LYMPH # 1.5 10^3/uL (1.5-5.0); LYMPH % 19.3 % (24.0-44.0); MEAN CORPUSCULAR HEMOGLOBIN 34.3 pg (27.0-33.0); MEAN CORPUSCULAR HGB CONC 34.7 g/dl (32.0-36.5); MEAN CORPUSCULAR VOLUME 98.9 fl (80.0-96.0); MONO # 0.6 10^3/uL (0.0-0.8); MONO % 8.3 % (2.0-8.0); NEUTROPHILS # 5.3 10^3/uL (1.5-8.5); PLATELET COUNT, AUTOMATED 476 10^3/uL (150-450); WHITE BLOOD COUNT 7.6 10^3/uL (4.0-10.0)
[2023-08-20 19:02] LABS: ALBUMIN 3.7 G/DL (3.2-5.2); BILIRUBIN,DIRECT 0.1 MG/DL (<0.4); BILIRUBIN,TOTAL 0.4 MG/DL (0.3-1.2); CALCIUM LEVEL 9.3 MG/DL (8.3-10.6); CREATININE FOR GFR 1.02 MG/DL (0.55-1.30); GLOMERULAR FILTRATION RATE 56.2 (>39); POTASSIUM SERUM 5.1 MMOL/L (3.5-5.1); TOTAL PROTEIN 7.2 G/DL (5.7-8.2)
[2023-08-20] MEDS ORDERED: amLODIPine 5 MG TAB PO ONE (20:05)
[2023-08-20] MEDS ORDERED: SPIRONOLACTONE 50 MG TAB PO ONE (20:05)
[2023-08-20] MEDS ORDERED: ISOSORBIDE MONONITRATE 10MG TABLET PO ONE (20:05)
[2023-08-20] MEDS ORDERED: CARVedilol 3.125 MG TAB PO ONE (20:05)
[2023-08-20] MEDS ORDERED: PRAVASTATIN 20 MG TAB PO ONE (20:05)
[2023-08-20] MEDS ORDERED: ISOVUE-370 76% 100ML VIAL As Ordered ONE (20:10)
[2023-08-20 20:28] VITALS: BP 150/71
[2023-08-20 20:44] LABS: THYROID STIMULATING HORMONE 1.088 uIU/ML (0.55-4.78)
[2023-08-20] MEDS ORDERED: AMOX500C PO (22:01)
[2023-08-20 22:12] VITALS: BP 120/74; TEMP 98.2; O2SAT 99
== END 2023-08-20 22:14 | disposition home or self-care (01) ==
LOC: M ED 16:55
DX: I10 Essential (primary) hypertension (principal); J01.90 Acute sinusitis, unspecified; J43.9 Emphysema, unspecified; Z79.811 Long term (current) use of aromatase inhibitors; Z79.810 Long term (current) use of selective estrogen receptor modulators (SERMs); Z79.899 Other long term (current) drug therapy
CPT/HCPCS: 36415; 71275; 80053; 81001; 82248; 84443; 85025; 93005; 99284; Q9967

== ENCOUNTER 2023-12-26 14:32 | Emergency (ER) | payer MEDICARE ==
[~2023-12-26] VITALS: Ht 154.9 cm; Wt 57.8 kg
[~2023-12-26 14:32] MED LIST changes: +AMLO1TAB24; +AMOX500C PO; +LISI10TA22; +PRAV20TA2; +PROBCAP14 PO
[2023-12-26 15:26] LABS: BASO # 0.1 10^3/uL (0.0-0.2); BASO % 0.6 % (0.0-1.0); EOS # 0.1 10^3/uL (0.0-0.5); EOS % 1.1 % (0.0-3.0); HEMATOCRIT 30.3 % (36.0-47.0); HEMOGLOBIN 10.5 g/dl (12.0-15.5); LYMPH # 1.2 10^3/uL (1.5-5.0); LYMPH % 11.5 % (24.0-44.0); MEAN CORPUSCULAR HEMOGLOBIN 34.2 pg (27.0-33.0); MEAN CORPUSCULAR HGB CONC 34.7 g/dl (32.0-36.5); MEAN CORPUSCULAR VOLUME 98.7 fl (80.0-96.0); MONO # 0.8 10^3/uL (0.0-0.8); MONO % 7.2 % (2.0-8.0); NEUTROPHILS # 8.3 10^3/uL (1.5-8.5); NEUTROPHILS % 79.2 % (36.0-66.0); PLATELET COUNT, AUTOMATED 304 10^3/uL (150-450); RED BLOOD COUNT 3.07 10^6/uL (4.00-5.40); WHITE BLOOD COUNT 10.5 10^3/uL (4.0-10.0)
[2023-12-26 15:43] LABS: INR 0.96; PROTHROMBIN TIME 12.6 SECONDS (12.5-14.5)
[2023-12-26 15:52] LABS: ALBUMIN 3.8 G/DL (3.2-5.2); BILIRUBIN,DIRECT 0.1 MG/DL (<0.4); BILIRUBIN,TOTAL 0.4 MG/DL (0.3-1.2); CALCIUM LEVEL 8.9 MG/DL (8.3-10.6); CREATININE FOR GFR 1.3 MG/DL (0.55-1.30); GLOMERULAR FILTRATION RATE 42.4 (>39); POTASSIUM SERUM 4.8 MMOL/L (3.5-5.1); TOTAL PROTEIN 6.8 G/DL (5.7-8.2)
[2023-12-26] MEDS: NS 1,000 ML IV SCH (16:24)
[2023-12-26] MEDS: PANTOPRAZOLE 40MG VIAL IV ONE (16:24)
[2023-12-26] MEDS ORDERED: PREP1SUP PR (17:42)
[2023-12-26 18:01] VITALS: BP 143/63; TEMP 97.5; O2SAT 97
== END 2023-12-26 18:13 | disposition home or self-care (01) ==
LOC: M ED 14:32
DX: K29.71 Gastritis, unspecified, with bleeding (principal); K21.9 Gastro-esophageal reflux disease without esophagitis; I10 Essential (primary) hypertension; N83.291 Other ovarian cyst, right side; J30.2 Other seasonal allergic rhinitis; J30.81 Allergic rhinitis due to animal (cat) (dog) hair and dander; Z79.899 Other long term (current) drug therapy; Z91.010 Allergy to peanuts; Z88.8 Allergy status to other drugs, medicaments and biological substances
CPT/HCPCS: 74176; 80047; 80048; 80076; 82150; 83690; 85025; 85610; 96374; 99284; C9113

== ENCOUNTER 2024-01-18 10:27 | Day surgery (SDC) | payer MEDICARE ==
[~2024-01-18] VITALS: Ht 154.9 cm; Wt 55.1 kg
[~2024-01-18 10:27] MED LIST changes: -AMLO1TAB24; +AMLO1TAB24 PO; +ESOM1CAP20 PO; -ESOM1CAP5 PO; +ESOM40CA35 PO; -LISI10TA22; +LISI10TA22 PO; +PRAV40TA2 PO; +PREP1SUP PR; +PROL60SO SQ; -SUCR1ORA2; +SUCR1ORA2 PO; +THERTAB52 PO
[2024-01-18] MEDS ORDERED: propofoL 500 MG/50 ML VIAL As Ordered ONE (11:35)
[2024-01-18] MEDS ORDERED: LIDOCAINE 2% 100MG/5ML SDV (FOR ANES.) As Ordered ONE (11:35)
[2024-01-18] MEDS: NS 1,000 ML IV ONE (11:45)
[2024-01-18 13:24] VITALS: BP 144/65; O2SAT 99
== END 2024-01-18 13:24 | disposition home or self-care (01) ==
LOC: M OPP 10:27
PROVIDERS: ATTEND Surgery
DX: Z86.010 Personal history of colon polyps (principal); K29.70 Gastritis, unspecified, without bleeding; K21.9 Gastro-esophageal reflux disease without esophagitis; Z87.891 Personal history of nicotine dependence; I10 Essential (primary) hypertension; Z79.02 Long term (current) use of antithrombotics/antiplatelets; Z79.899 Other long term (current) drug therapy; Z88.2 Allergy status to sulfonamides; Z91.010 Allergy to peanuts
CPT/HCPCS: 43239; 88305; G0105

== ENCOUNTER → 2024-05-22 | Outpatient (CLI) | payer MEDICARE | LOC: M PLAIMG 09:47 | PROVIDERS: ATTEND Registered Nurse | DX: I08.3 Combined rheumatic disorders of mitral, aortic and tricuspid valves (principal); I27.20 Pulmonary hypertension, unspecified ==

== ENCOUNTER → 2024-07-06 | Outpatient (CLI) | payer MEDICARE ==
[~2024-07-06] MED LIST changes: +NADO80TA; -NADO80TA5
== END ==
LOC: M CARPUL 09:43
PROVIDERS: ATTEND Internal Medicine Cardiovascular Disease
DX: R94.31 Abnormal electrocardiogram [ECG] [EKG] (principal)

== ENCOUNTER 2025-02-15 15:12 | Emergency (ER) | payer MEDICARE ==
[~2025-02-15] VITALS: Ht 154.9 cm; Wt 55.7 kg
[~2025-02-15 15:12] MED LIST changes: +DENO60SY2 SQ; +ISOS10TA69 PO; -ISOS1TAB12 PO; -PRAV10TA3 PO; +PRAV10TA43 PO; -PRAV20TA2; +PRAV20TA78; -PRAV40TA2 PO; +PRAV40TA85 PO; -PROL60SO SQ; -SUCR1ORA2 PO; +SUCR1ORA20 PO
[2025-02-15 15:18] VITALS: TEMP 97.9
[2025-02-15 17:02] VITALS: O2SAT 99
[2025-02-15 17:32] LABS: BASO # 0.1 10^3/uL (0.0-0.2); BASO % 0.9 % (0.0-1.0); EOS # 0.1 10^3/uL (0.0-0.5); EOS % 1.2 % (0.0-3.0); LYMPH # 1.6 10^3/uL (1.5-5.0); LYMPH % 26.7 % (24.0-44.0); MONO # 0.5 10^3/uL (0.0-0.8); MONO % 8.7 % (2.0-8.0); NEUTROPHILS # 3.6 10^3/uL (1.5-8.5); NEUTROPHILS % 62.2 % (36.0-66.0); PLATELET COUNT, AUTOMATED 293 10^3/uL (150-450)
[2025-02-15 17:45] LABS: INR 0.89
[2025-02-15 17:51] LABS: CK-MB VALUE MASS 1.7 NG/ML (<3.6)
[2025-02-15 17:52] LABS: ALT/SGPT 28.0 U/L (7.0-40); AST/SGOT 35.0 U/L (<34); CALCIUM LEVEL 9.6 MG/DL (8.3-10.6); CARBON DIOXIDE LEVEL 22.0 MMOL/L (20-31); CHLORIDE LEVEL 100.0 MMOL/L (98-107); CREATININE FOR GFR 1.11 MG/DL (0.55-1.30); GLOMERULAR FILTRATION RATE 51.2 (>39); POTASSIUM SERUM 5.1 MMOL/L (3.5-5.1); SODIUM LEVEL 134.0 MMOL/L (136-145)
[2025-02-15 17:55] LABS: CPK CREATINE PHOSPHOKINASE 111.0 U/L (34-145); MB/CK RELATIVE INDEX 1.53 (< OR =4)
[2025-02-15] MEDS ORDERED: GABA-1172 PO (22:14)
[2025-02-15 22:18] VITALS: BP 158/62
== END 2025-02-15 22:25 | disposition home or self-care (01) ==
LOC: M ED 15:12
DX: M54.31 Sciatica, right side (principal); I10 Essential (primary) hypertension; I25.10 Atherosclerotic heart disease of native coronary artery without angina pectoris; J30.2 Other seasonal allergic rhinitis; J30.81 Allergic rhinitis due to animal (cat) (dog) hair and dander; K21.9 Gastro-esophageal reflux disease without esophagitis; Z87.11 Personal history of peptic ulcer disease; Z79.899 Other long term (current) drug therapy; Z88.8 Allergy status to other drugs, medicaments and biological substances; Z91.010 Allergy to peanuts

== ENCOUNTER → 2025-05-08 | Outpatient (REF) | payer MEDICARE ==
[~2025-05-08] MED LIST changes: +GABA-1172 PO
[2025-05-08 18:04] LABS: ALT/SGPT 23.0 U/L (7.0-40); AST/SGOT 23.0 U/L (<34); CALCIUM LEVEL 9.0 MG/DL (8.3-10.6); CARBON DIOXIDE LEVEL 21.0 MMOL/L (20-31); CHLORIDE LEVEL 102.0 MMOL/L (98-107); CREATININE FOR GFR 1.08 MG/DL (0.55-1.30); GLOMERULAR FILTRATION RATE 52.9 (>39); POTASSIUM SERUM 5.0 MMOL/L (3.5-5.1); SODIUM LEVEL 131.0 MMOL/L (136-145)
== END ==
LOC: M SFHCLERA 08:18
PROVIDERS: ATTEND Internal Medicine
DX: M81.0 Age-related osteoporosis without current pathological fracture (principal)

== ENCOUNTER → 2025-06-25 | Outpatient (REF) | payer MEDICARE ==
[2025-06-25 17:54] LABS: BASO # 0.0 10^3/uL (0.0-0.2); BASO % 0.5 % (0.0-1.0); EOS # 0.3 10^3/uL (0.0-0.5); EOS % 4.0 % (0.0-3.0); LYMPH # 1.0 10^3/uL (1.5-5.0); LYMPH % 12.3 % (24.0-44.0); MONO # 0.8 10^3/uL (0.0-0.8); MONO % 9.7 % (2.0-8.0); NEUTROPHILS # 5.8 10^3/uL (1.5-8.5); NEUTROPHILS % 72.9 % (36.0-66.0); PLATELET COUNT, AUTOMATED 351 10^3/uL (150-450)
[2025-06-25 18:28] LABS: CALCIUM LEVEL 8.9 MG/DL (8.3-10.6); CARBON DIOXIDE LEVEL 20.0 MMOL/L (20-31); CHLORIDE LEVEL 102.0 MMOL/L (98-107); CREATININE FOR GFR 1.08 MG/DL (0.55-1.30); GLOMERULAR FILTRATION RATE 52.9 (>39); POTASSIUM SERUM 5.5 MMOL/L (3.5-5.1); SODIUM LEVEL 132.0 MMOL/L (136-145)
== END ==
LOC: M SFHCLERA 08:46
PROVIDERS: ATTEND Internal Medicine
DX: I10 Essential (primary) hypertension (principal)

== ENCOUNTER → 2025-06-29 | Outpatient (CLI) | payer MEDICARE ==
[2025-06-29 09:58] LABS: CALCIUM LEVEL 9.0 MG/DL (8.3-10.6); CARBON DIOXIDE LEVEL 22.0 MMOL/L (20-31); CHLORIDE LEVEL 102.0 MMOL/L (98-107); CREATININE FOR GFR 1.23 MG/DL (0.55-1.30); GLOMERULAR FILTRATION RATE 45.3 (>39); POTASSIUM SERUM 5.0 MMOL/L (3.5-5.1); SODIUM LEVEL 134.0 MMOL/L (136-145)
== END ==
LOC: M LAB 08:30
PROVIDERS: ATTEND Internal Medicine
DX: E87.5 Hyperkalemia (principal)

== ENCOUNTER 2025-07-11 07:59 | Day surgery (SDC) | payer MEDICARE ==
[~2025-07-11] VITALS: Ht 154.9 cm; Wt 57.6 kg
[~2025-07-11 07:59] MED LIST changes: +CYCLOPENTOLATE 1% OPHTH SOLN 2 ML BTL OD SCH; +FAMO40TA3 PO; +LIDOCAINE 3.5% 1 ML OPHTH TOPICAL GEL OU ONE; +LISI20TA33 PO; +NEUR300C PO; +OFLOXACIN 0.3 % (OCUFLOX) OPTH SOL 5ML OD ONE; +PHENYLEPHRINE 10% OPHTH SOL 5ML OD PRN; +PHENYLEPHRINE 2.5% OPHTH SOL 2ML OD SCH; +PRAV80TA75 PO; -SPIR100T3; +SPIR100T3 PO; +TROPICAMIDE 1% OPHTH SOLN 15ML OD SCH
[2025-07-11] MEDS ORDERED: MIDAZOLAM INJ 2 MG/2 ML VIAL As Ordered ONE (09:31)
[2025-07-11] MEDS: BSS IRRIG/VANCO(10MG)/TOBRA(5MG)/EPINEPH(1:1000-0.5CC)500ML BAG-ORONLY As Ordered ONE (09:40)
[2025-07-11] MEDS: LIDOCAINE 1% SDV 5 ML VIAL As Ordered ONE (09:40)
[2025-07-11] MEDS: CEFUROXIME 1 MG/0.1 ML INTRACAMERAL INJ As Ordered ONE (09:41)
[2025-07-11] MEDS ORDERED: PROVISC 10 MG/ML 0.85ML SYRINGE As Ordered ONE (09:42)
[2025-07-11 09:55] VITALS: BP 141/67; TEMP 97.4; O2SAT 97
[2025-07-12] MEDS ORDERED: FLON1SPR (08:06)
== END 2025-07-11 10:09 | disposition home or self-care (01) ==
LOC: M SDC 07:59
PROVIDERS: ATTEND Ophthalmology
DX: H25.11 Age-related nuclear cataract, right eye (principal); I10 Essential (primary) hypertension; E78.00 Pure hypercholesterolemia, unspecified; K21.9 Gastro-esophageal reflux disease without esophagitis; M81.0 Age-related osteoporosis without current pathological fracture; Z79.899 Other long term (current) drug therapy; Z88.8 Allergy status to other drugs, medicaments and biological substances; Z91.010 Allergy to peanuts
CPT/HCPCS: 66984; 92015; A4649; J0697; J2250; J3010; V2632

== ENCOUNTER 2025-07-18 08:02 | Day surgery (SDC) | payer MEDICARE ==
[~2025-07-18] VITALS: Ht 154.9 cm; Wt 57.3 kg
[~2025-07-18 08:02] MED LIST changes: -CYCLOPENTOLATE 1% OPHTH SOLN 2 ML BTL OD SCH; +FLON1SPR; -LIDOCAINE 3.5% 1 ML OPHTH TOPICAL GEL OU ONE; -OFLOXACIN 0.3 % (OCUFLOX) OPTH SOL 5ML OD ONE; -PHENYLEPHRINE 10% OPHTH SOL 5ML OD PRN; +PHENYLEPHRINE 10% OPHTH SOL 5ML OS PRN; -PHENYLEPHRINE 2.5% OPHTH SOL 2ML OD SCH; -TROPICAMIDE 1% OPHTH SOLN 15ML OD SCH
[2025-07-18] MEDS: OFLOXACIN 0.3 % (OCUFLOX) OPTH SOL 5ML OS ONE (09:00)
[2025-07-18] MEDS: LIDOCAINE 3.5% 1 ML OPHTH TOPICAL GEL OU ONE (09:00)
[2025-07-18] MEDS: TROPICAMIDE 1% OPHTH SOLN 15ML OS SCH (09:50)
[2025-07-18] MEDS: PHENYLEPHRINE 2.5% OPHTH SOL 2ML OS SCH (09:50)
[2025-07-18] MEDS: CYCLOPENTOLATE 1% OPHTH SOLN 2 ML BTL OS SCH (09:50)
[2025-07-18] MEDS: CEFUROXIME 1 MG/0.1 ML INTRACAMERAL INJ As Ordered ONE (09:55)
[2025-07-18] MEDS: LIDOCAINE 1% SDV 5 ML VIAL As Ordered ONE (09:55)
[2025-07-18] MEDS: BSS IRRIG/VANCO(10MG)/TOBRA(5MG)/EPINEPH(1:1000-0.5CC)500ML BAG-ORONLY As Ordered ONE (09:55)
[2025-07-18 10:10] VITALS: BP 154/80; TEMP 98.5; O2SAT 99
== END 2025-07-18 10:21 | disposition home or self-care (01) ==
LOC: M SDC 08:02
PROVIDERS: ATTEND Ophthalmology
DX: H25.12 Age-related nuclear cataract, left eye (principal); I10 Essential (primary) hypertension; E78.00 Pure hypercholesterolemia, unspecified; K21.9 Gastro-esophageal reflux disease without esophagitis; Z79.899 Other long term (current) drug therapy; Z88.8 Allergy status to other drugs, medicaments and biological substances; Z91.010 Allergy to peanuts; M81.0 Age-related osteoporosis without current pathological fracture; Z98.41 Cataract extraction status, right eye
CPT/HCPCS: 66984; 92015; J0697; J3010; V2632